=== PATIENT | male | born 1945 | race Caucasian/White ===

== ENCOUNTER 2017-07-29 11:41 | Emergency (ER) | payer MEDICARE ==
[2017-07-29 11:46] VITALS: BP 143/75; PULSE 79; RESP 18; TEMP 98
[2017-07-29] MEDS ORDERED: DIPH,PERTUS(ACELL)TETVAC-LF 0.5 ML VIAL IM ONE (12:10)
--- NOTE | 2017-07-29 12:43 | XR ---
EXAMINATION TYPE: XR nasal bone DATE OF EXAM: 07/29/2017 COMPARISON: NONE HISTORY: Fall injury with nasal laceration and pain. TECHNIQUE: Complete nasal bone series with both lateral and frontal projections. FINDINGS: No acute displaced nasal fracture is seen. No suspicious soft tissue swelling is noted. IMPRESSION: As above
--- NOTE | 2017-07-29 13:27 | ED ---
General Adult HPI - General Chief complaint: Fall Stated complaint: Fall Time Seen by Provider: 07/29/17 11:45 Source: patient, family, RN notes reviewed Mode of arrival: ambulatory Limitations: no limitations - History of Present Illness Initial comments: This is a 72-year-old male who tripped while in his garage and has a avulsion on the right side of his nose as well as on his upper lip. Patient states the only place his pain is at this nasal bone. Patient denies any headache patient denies being on any blood thinners. Patient denies any neck pain. Patient denies any extremity pain patient denies any chest or back pain. Patient's has no obvious laceration. - Related Data Home Medications Medication Instructions Recorded Confirmed Atorvastatin [Lipitor] 20 mg PO DAILY 09/12/15 09/20/15 Cholecalciferol [Vitamin D3] 1,000 unit PO DAILY 09/12/15 09/20/15 Finasteride [Proscar] 5 mg PO DAILY 09/12/15 09/20/15 Meloxicam [Mobic] 7.5 mg PO BID 09/12/15 09/20/15 Multivitamins, Thera [Multivitamin] 1 tab PO DAILY 09/12/15 09/20/15 Nebivolol [Bystolic] 5 mg PO DAILY 09/12/15 09/20/15 Nortriptyline HCl 75 mg PO DAILY 09/12/15 09/20/15 Potassium Chloride [Klor-Con] 20 meq PO DIRECTED 09/12/15 09/20/15 Aspirin [Adult Low Dose Aspirin EC] 81 mg PO DAILY 09/20/15 09/20/15 Cera Ve 09/20/15 09/20/15 Furosemide [Lasix] 40 mg PO DIRECTED 09/20/15 09/20/15 Vitamin B Complex 1 each PO DAILY 09/20/15 09/20/15 Previous Rx's Medication Instructions Recorded HYDROcodone/APAP 10-325MG [[place] 1 tab PO Q8HR PRN #90 tab 09/20/15 10-325] Allergies Allergy/AdvReac Type Severity Reaction Status Date / Time No Known Allergies Allergy Verified 07/29/17 11:47 Review of Systems ROS Statement: Those systems with pertinent positive or pertinent negative responses have been documented in the HPI. ROS Other: All systems not noted in ROS Statement are negative. Past Medical History Past Medical History: Hyperlipidemia, Hypertension, Prostate Disorder Additional Past Medical History / Comment(s): pain lower back and martin legs, elevated PSA parkensons disease History of Any Multi-Drug Resistant Organisms: None Reported Past Surgical History: Back Surgery, Hernia Repair Additional Past Surgical History / Comment(s): Other back surgeries after 1999 for spinal stenosis and excess scar tissue. Past Anesthesia/Blood Transfusion Reactions: Motion Sickness, Postoperative Nausea & Vomiting (PONV) Past Psychological History: Anxiety Smoking Status: Former smoker Past Alcohol Use History: Rare Past Drug Use History: None Reported - Past Family History Brother(s) Family Medical History: Cancer Additional Family Medical History / Comment(s): breast General Exam - General Exam Comments Initial Comments: GENERAL: Patient is well-developed and well-nourished. Patient is nontoxic and well- hydrated and is in mild distress. ENT: Neck is soft and supple. No significant lymphadenopathy is noted. Oropharynx is clear. Moist mucous membranes. Neck has full range of motion without eliciting any pain. EYES: The sclera were anicteric and conjunctiva were pink and moist. Extraocular movements were intact and pupils were equal round and reactive to light. Eyelids were unremarkable. PULMONARY: Unlabored respirations. Good breath sounds bilaterally. No audible rales rhonchi or wheezing was noted. CARDIOVASCULAR: There is a regular rate and rhythm without any murmurs gallops or rubs. ABDOMEN: Soft and nontender with normal bowel sounds. SKIN: There is an avulsion approximately quarter centimeter in diameter on the right side of his nose as well as an avulsion of skin on the upper right side of his lip measuring about a half a centimeter by quarter centimeter NEUROLOGIC: Patient is alert and oriented x3. Cranial nerves II through XII are grossly intact. Motor and sensory are also intact. Normal speech, volume and content. Symmetrical smile. MUSCULOSKELETAL: Normal extremities with adequate strength and full range of motion. No lower extremity swelling or edema. No calf tenderness. LYMPHATICS: No significant lymphadenopathy is noted PSYCHIATRIC: Normal psychiatric evaluation. Limitations: no limitations Course Vital Signs 07/29/17 11:43 Temperature 98.0 F Pulse Rate 79 Respiratory 18 Rate Blood Pressure 143/75 O2 Sat by Pulse 97 Oximetry Medical Decision Making - Medical Decision Making Patient received a tetanus shot Small thread of skin that was keeping these avulsed piece on his lip was removed by myself. Disposition Clinical Impression: Skin avulsion Disposition: HOME SELF-CARE Instructions: Fall Prevention for Older Adults (ED), Skin Avulsion (ED) Is patient prescribed a controlled substance at d/c from ED?: No Referrals: Linda Thomas MD [Primary Care Provider] - 1-2 days Time of Disposition: 13:24
== END 2017-07-29 13:34 | disposition home or self-care (01) ==
LOC: EC 11:41
DX: S01.20XA Unspecified open wound of nose, initial encounter (principal); S01.501A Unspecified open wound of lip, initial encounter; F41.9 Anxiety disorder, unspecified; E78.5 Hyperlipidemia, unspecified; I10 Essential (primary) hypertension; Z23 Encounter for immunization; Z79.82 Long term (current) use of aspirin; Z79.899 Other long term (current) drug therapy; Z87.891 Personal history of nicotine dependence; W01.0XXA Fall on same level from slipping, tripping and stumbling without subsequent striking against object, initial encounter; Y92.59 Other trade areas as the place of occurrence of the external cause
CPT/HCPCS: 70160; 90471; 90715; 99283

== ENCOUNTER → 2017-09-24 | Outpatient (CLI) | payer MEDICARE ==
[~2017-09-24] MED LIST: REGADENOSON 0.4 MG/5 ML SYRINGE IV ONE
--- NOTE | 2017-09-24 15:38 | NM ---
EXAMINATION TYPE: NM stress lexiscan cardiolite DATE OF EXAM: 09/24/2017 COMPARISON: NONE HISTORY: Abnormal EKG TECHNIQUE: After the intravenous administration of 10.7 mCi Tc 99m Sestamibi - Cardiolite resting SP ECT images acquired 45 minutes post injection. The patient received 0.4mg Lexiscan, 25.9 mCi Tc 99m Sestamibi - Stress images obtained [address] injection FINDINGS: There is some thinning of the inferior lateral wall on the stress images which is more norm al appearance on the resting images. This is also identified on the polar maps. There is loss at the cardiac apex of signal on both resting and stress images. Polar maps suggest a fixed defect at the ca rdiac apex. Gated wall motion is reviewed. There is some hypokinesia of the cardiac apex. Some dyskin esia of the inferior wall near the cardiac base is present. Some distal anterior wall dyskinesia is p resent. Ejection fraction of 60% is normal. IMPRESSION: 1. Stress-induced ischemic change along the inferior lateral wall. 2. Normal ejection fraction of 60%. 3. Dyskinesia of the inferior wall near the cardiac base and distal anterior wall.
--- NOTE | 2017-09-25 08:58 | EST ---
EXERCISE STRESS AGE: 72 SEX: M HT: 65" WT: 205 PROTOCOL: Lexiscan. STAGE: DURATION OF EXERCISE: HEART RATE REST: 65 BLOOD PRESSURE REST: 149/86 MAXIMUM HEART RATE ACHIEVED: 80 MAXIMUM BLOOD PRESSURE: 149/86 85% MPHR: 124 100% MPHR: 146 METS: INDICATIONS: Chest pain. CLINICAL INFORMATION: Syncope. STRESS DATA: Pretesting physical examination showed a heart rate of 65. Pressure is 149/86 mmHg. Baseline EKG showed sinus mechanism. The patient was given 0.4 mg of Lexiscan over 15 seconds per protocol. The max heart rate was 80 beats per minute and maximum pressure was 148/72 mmHg. Clinically, the patient did not have any symptoms of chest pain or discomfort and the EKG did not show any significant ST or T-wave abnormalities concerning for ischemia. CONCLUSION: 1. Nondiagnostic electrocardiogram stress testing in response to Lexiscan. 2. Please follow up on the Cardiolite portion on separate report from the radiology department. MMODL / IJN: [id number] /
== END | disposition home or self-care (01) ==
LOC: RADNMMAIN 07:38
PROVIDERS: ATTEND Internal Medicine
DX: I25.89 Other forms of chronic ischemic heart disease (principal); G24.9 Dystonia, unspecified
CPT/HCPCS: 93017; 78452; A9500; J2785

== ENCOUNTER → 2017-10-14 | Outpatient (CLI) | payer MEDICARE ==
[2017-10-14 11:16] LABS: HCT 44.5 % (39.0-53.0); HGB 13.7 gm/dL (13.0-17.5); MCH 28.7 pg (25.0-35.0); MCHC 30.8 g/dL (31.0-37.0); MCV 93.1 fL (80.0-100.0); Mean Platelet Volume 6.5; Platelet Count 212 k/uL (150-450); RBC 4.78 m/uL (4.30-5.90); RDW 12.2 % (11.5-15.5); WBC 6.8 k/uL (3.8-10.6)
[2017-10-14 11:37] LABS: Anion Gap 4 mmol/L; Blood Urea Nitrogen 21 mg/dL (9-20); Carbon Dioxide 31 mmol/L (22-30); Chloride 105 mmol/L (98-107); Potassium 4.8 mmol/L (3.5-5.1); Sodium 140 mmol/L (137-145)
== END | disposition home or self-care (01) ==
LOC: LABPAT 10:31
PROVIDERS: ATTEND Internal Medicine Interventional Cardiology
DX: Z01.812 Encounter for preprocedural laboratory examination (principal); I10 Essential (primary) hypertension; R06.02 Shortness of breath; R94.39 Abnormal result of other cardiovascular function study
CPT/HCPCS: 36415; 80051; 82565; 84520; 85027

== ENCOUNTER 2017-10-29 06:21 | Day surgery (SDC) | payer MEDICARE ==
[2017-10-24 10:11] VITALS: BMI 34.1
[~2017-10-29 06:21] MED LIST changes: +ALPRAZolam 0.25 MG TAB PO PRN; +ALPRAZolam 0.5 MG TAB PO PRN; +ASPIRIN 325 MG TAB PO STA; +NITROGLYCERIN SL TABS 0.4 MG TAB SUBLINGUAL PRN; -REGADENOSON 0.4 MG/5 ML SYRINGE IV ONE; +SODIUM CHLORIDE 0.9% 1,000 ML in EMPTY BAG 1 BAG IV ONE
[2017-10-29 07:22] VITALS: RESP 20
[2017-10-29] MEDS ORDERED: IV FLUID CONTINUATION 950 ML IV ONE (09:00)
[2017-10-29] MEDS ORDERED: MIDAZOLAM 2 MG/2 ML VIAL IVP ONE (09:08)
[2017-10-29] MEDS ORDERED: LIDOCAINE 1% (PF) 10MG/ML VIAL SQ ONE (09:09)
[2017-10-29] MEDS: VERAPAMIL SYRINGE (5 MG/10 ML) INTRAARTER ONE ×2 (09:11→09:19)
[2017-10-29] MEDS ORDERED: HEPARIN SODIUM 1,000 UN/ML (10ML VL) IV ONE (09:13)
[2017-10-29] MEDS ORDERED: IOPAMIDOL-370 125ML BTL INJ ONE (09:21)
[2017-10-29] MEDS ORDERED: RX INFO: IV CONTRAST WAS GIVEN 1 EACH MISC MISCELLANE PRN (09:36)
[2017-10-29] MEDS ORDERED: SODIUM CHLORIDE 0.9% 1,000 ML IV SCH (09:45)
--- NOTE | 2017-10-29 09:54 | CC ---
CARDIAC CATHETERIZATION REPORT DATE OF SERVICE: 10/29/2017 PERFORMING PHYSICIAN: John Blandon MD, Manager Line. PROCEDURE PERFORMED: Selective right and left coronary angiogram. INDICATION: This is a pleasant 72-year-old gentleman who was experiencing shortness of breath with exertion and underwent myocardial perfusion imaging stress test and that revealed ischemia. Because of that, heart catheterization was recommended. APPROACH: Right radial artery. COMPLICATION: None. LEVEL OF SEDATION: Moderate with sedation length of 15 minutes. PROCEDURE DESCRIPTION: After obtaining an informed consent, the patient was brought to the cardiac laborer pipeline. The right radial artery was cannulated using micropuncture technique, the micropuncture wire passed easily then I placed a 5-Colombian sheath in the right radial artery. After that, I did selective right and left coronary angiogram using JR4 and JL3.5 catheters. Before that, I gave the patient 2 mg of verapamil IA and 9,000 units of heparin IV. The procedure was completed without any complication. SELECTIVE CORONARY ANGIOGRAM: 1. The RCA is a small to medium caliber vessel and it is a nondominant vessel and is angiographically normal. 2. The left main is angiographically normal. It bifurcates into left circumflex and left anterior descending artery. 3. The left circumflex is a large caliber vessel. It is a dominant vessel. The proximal circumflex is normal and gives rise into a medium-size OM branch which seems to be angiographically normal. The mid left circumflex is normal and gives rise into a second small OM branch which seems to be angiographically normal. The left circumflex distally gives rise into another third OM branch which seems to be angiographically normal before bifurcates into PDA and PLV branches, both are angiographically normal. 4. The LAD: The proximal LAD is angiographically normal and gives rise into first diagonal branch which bifurcates into 2 subbranches both are angiographically normal. The mid and distal LAD are angiographically normal. CONCLUSION: 1. Normal coronary angiogram. 2. Post procedure management is medical treatment. MMODL / IJN: [id number] /
--- NOTE | 2017-10-29 10:00 | LTR ---
DATE OF SERVICE: October 29, 2017 RE: Cash Tanner Dear Dr. Thomas; Mr. Cash Tanner underwent a heart catheterization and that revealed normal coronaries. I want to thank you for allowing me to participate in his care and please do not hesitate to call if you have any question or concern. Sincerely, MD PETE Jamil / ALONA: [phone] /
[2017-10-29 10:16] VITALS: PULSE 60; TEMP 98
[2017-10-29 12:35] VITALS: BP 160/78
== END 2017-10-29 15:35 | disposition home or self-care (01) ==
LOC: CATHCVL 06:21 → 3OBS 09:22 → CATHCVL 15:35
PROVIDERS: ATTEND Internal Medicine Interventional Cardiology
DX: R94.39 Abnormal result of other cardiovascular function study (principal); R06.02 Shortness of breath; I10 Essential (primary) hypertension; G20 Parkinson's disease; E78.00 Pure hypercholesterolemia, unspecified; Z87.891 Personal history of nicotine dependence; Z79.82 Long term (current) use of aspirin; Z79.899 Other long term (current) drug therapy
CPT/HCPCS: 93454; C1894; J2250; J1644; J2001; Q9967

== ENCOUNTER 2019-01-28 06:52 | Day surgery (SDC) | payer MEDICARE ==
[2019-01-27 09:09] VITALS: BMI 31.0
[~2019-01-28 06:52] MED LIST changes: -ALPRAZolam 0.25 MG TAB PO PRN; -ALPRAZolam 0.5 MG TAB PO PRN; -ASPIRIN 325 MG TAB PO STA; +DEXAMETHASONE SOD PHOSPHATE 10 MG/ML 1 ML VIAL IV ONE; +HYDROmorphone 0.5 MG/0.5 ML SYRINGE IVP PRN; +LACTATED RINGERS 1,000 ML IV SCH; +LIDOCAINE 1% 20 ML VIAL (10MG/ML) FOR IV START INTRADERMA PRN; +MIDAZOLAM 2 MG/2 ML VIAL IV PRN; +MOXIFLOXACIN HCL 0.5% DROPS 3 ML BTL OP ONE; -NITROGLYCERIN SL TABS 0.4 MG TAB SUBLINGUAL PRN; +ONDANSETRON 4 MG/2 ML VIAL IVP ONE; +SCOPOLAMINE 1.5MG/72HR PATCH TRANSDERM ONE; -SODIUM CHLORIDE 0.9% 1,000 ML in EMPTY BAG 1 BAG IV ONE; +TETRACAINE 0.5% OPHTH (PF) DROPS 4 ML BTL OP SCH; +TIMOLOL 0.5% OPHTH DROPS 5 ML BTL OP ONE
[2019-01-28] MEDS: PHENYLEPHRINE 2.5% OPHTH DRP 2ML OP SCH ×3 (07:20→07:34)
[2019-01-28] MEDS: CYCLOPENTOLATE 1% OPHTH SOLN 2 ML BTL OP SCH ×3 (07:24→07:38)
[2019-01-28 07:31] VITALS: TEMP 97.7
[2019-01-28] MEDS ORDERED: fentaNYL (PF) 50 MCG/ML 2 ML AMP ONE (08:11)
[2019-01-28] MEDS ORDERED: MIDAZOLAM 2 MG/2 ML VIAL ONE (08:11)
[2019-01-28] MEDS ORDERED: HYALURONATE SODIUM INTRAOCULAR 1 EACH SYRINGE (12MG/ML) INTRAOCULA ONE (08:16)
[2019-01-28] MEDS ORDERED: LIDOCAINE 1% (PF) 10MG/ML VIAL SQ ONE (08:17)
[2019-01-28] MEDS ORDERED: BALANCED SALT IRRIG SOLN COMB2 15 ML IRRIG.SOLN INTRAOCULA ONE (08:17)
[2019-01-28] MEDS ORDERED: EPINEPHrine (PF) 0.3 ML in BALANCED SALT IRRIG SOLN COMB2 500 ML IRRIGATION ONE (08:27)
--- NOTE | 2019-01-28 08:44 | P.OP ---
Date of Procedure: 01/28/19 Preoperative Diagnosis: NS & CS Postoperative Diagnosis: same Procedure(s) Performed: PIOL, OD Implants: PCB00 23.00 Anesthesia: MAC Surgeon: Luiz Doherty Estimated Blood Loss (ml): 0 Pathology: none sent Condition: stable Disposition: observation Indications for Procedure: blurry vision Operative Findings: no complications
[2019-01-28 08:48] VITALS: RESP 16
[2019-01-28 09:20] VITALS: BP 115/74; PULSE 57
--- NOTE | 2019-01-28 20:31 | OP ---
OPERATIVE REPORT DATE OF SURGERY: 01/28/2019. PROCEDURE: Phacoemulsification of cataract and intraocular lens implant of the right eye. PREOPERATIVE DIAGNOSIS: Nuclear sclerosis, right eye. POSTOPERATIVE DIAGNOSIS: Nuclear sclerosis, right eye. ESTIMATED BLOOD LOSS: Zero. SPECIMEN TAKEN: None. NARRATIVE: After obtaining the appropriate consent, the patient was brought to the operating room, where the patient was placed under cardiac monitoring and prepped and draped in the usual sterile manner. At the 11 o'clock position a 15-degree super sharp blade was used to create a paracentesis followed by instillation of 1% Xylocaine MPF 50:50 mix with BSS into the anterior chamber. This was followed by Amvisc to stabilize the anterior chamber. At the 9 o'clock position a self-sealing corneal flap incision was created using 2.8 mm shahriar keratome. A cystotome was used to initiate a continuous tear capsulorrhexis which was completed with the Utrata forceps. A Binkhorst cannula was used to hydrodissect the lens nucleus followed by hydrodelineation. Phacoemulsification of the lens was performed utilizing phaco chop in 14.29 seconds at 13% power. The remaining cortical material was removed using the irrigation aspiration mode followed by additional 1% Xylocaine MPF into the anterior chamber followed by viscoelastic to stabilize the capsular bag. An MAHSA PCB00 23.0 diopter posterior chamber lens was placed into the capsular bag without difficulty. The remaining viscoelastic material was removed from the anterior chamber with the irrigation/aspiration. Balanced salt solution was used to normalize the intraocular pressure. The incision was checked for watertight integrity. The patient then received two drops of 0.5% timolol followed by two drops Vigamox, was lightly patched and shielded in the usual manner. There were no complications from the procedure. The patient tolerated the procedure well and was returned to Recovery in good condition. MMODL / IJN: [id number] /
== END 2019-01-28 09:41 | disposition home or self-care (01) ==
LOC: OR 06:52
PROVIDERS: ATTEND Ophthalmology
DX: H25.11 Age-related nuclear cataract, right eye (principal); H25.812 Combined forms of age-related cataract, left eye; H04.123 Dry eye syndrome of bilateral lacrimal glands; H52.03 Hypermetropia, bilateral; H52.4 Presbyopia; H02.833 Dermatochalasis of right eye, unspecified eyelid; H02.836 Dermatochalasis of left eye, unspecified eyelid; H00.026 Hordeolum internum left eye, unspecified eyelid; H00.023 Hordeolum internum right eye, unspecified eyelid; I10 Essential (primary) hypertension; G20 Parkinson's disease; N40.0 Benign prostatic hyperplasia without lower urinary tract symptoms; K57.92 Diverticulitis of intestine, part unspecified, without perforation or abscess without bleeding; Z98.890 Other specified postprocedural states; Z79.899 Other long term (current) drug therapy; Z79.82 Long term (current) use of aspirin; Z82.49 Family history of ischemic heart disease and other diseases of the circulatory system; Z82.3 Family history of stroke; Z87.891 Personal history of nicotine dependence; Z97.3 Presence of spectacles and contact lenses; E78.5 Hyperlipidemia, unspecified; M54.9 Dorsalgia, unspecified; Z97.2 Presence of dental prosthetic device (complete) (partial)
CPT/HCPCS: 66984; C1780; J2250; J0171; J3010; J2001

== ENCOUNTER 2019-04-15 07:37 | Day surgery (SDC) | payer MEDICARE ==
[2019-04-13 15:00] VITALS: BMI 30.9
[~2019-04-15 07:37] MED LIST changes: -DEXAMETHASONE SOD PHOSPHATE 10 MG/ML 1 ML VIAL IV ONE; -HYDROmorphone 0.5 MG/0.5 ML SYRINGE IVP PRN; -MIDAZOLAM 2 MG/2 ML VIAL IV PRN; -ONDANSETRON 4 MG/2 ML VIAL IVP ONE; -SCOPOLAMINE 1.5MG/72HR PATCH TRANSDERM ONE; +TETRACAINE 0.5% OPHTH (PF) DROPS 4 ML BTL OP ONE; -TETRACAINE 0.5% OPHTH (PF) DROPS 4 ML BTL OP SCH
[2019-04-15] MEDS: CYCLOPENTOLATE 1% OPHTH SOLN 2 ML BTL OP ONE ×3 (08:08→08:24)
[2019-04-15 08:11] VITALS: TEMP 97.6
[2019-04-15] MEDS: PHENYLEPHRINE 2.5% OPHTH DRP 2ML OP NR ×3 (08:12→08:27)
[2019-04-15] MEDS ORDERED: MIDAZOLAM 2 MG/2 ML VIAL ONE (08:56)
[2019-04-15] MEDS ORDERED: fentaNYL (PF) 50 MCG/ML 2 ML AMP ONE (08:56)
[2019-04-15] MEDS ORDERED: HYALURONATE SODIUM INTRAOCULAR 1 EACH SYRINGE (12MG/ML) INTRAOCULA ONE (09:09)
[2019-04-15] MEDS ORDERED: BALANCED SALT IRRIG SOLN COMB2 15 ML IRRIG.SOLN IRRIGATION ONE (09:09)
[2019-04-15] MEDS ORDERED: LIDOCAINE 1% (PF) 10MG/ML VIAL INTRAARTIC ONE (09:09)
[2019-04-15] MEDS ORDERED: TETRACAINE 0.5% OPHTH (PF) DROPS 4 ML BTL LEFT EYE ONE (09:10)
[2019-04-15] MEDS ORDERED: EPINEPHrine 1 MG/ML 1 ML AMP IRRIGATION ONE (09:10)
[2019-04-15] MEDS ORDERED: EPINEPHrine (PF) 0.3 ML in BALANCED SALT IRRIG SOLN COMB2 500 ML IRRIGATION ONE (09:12)
--- NOTE | 2019-04-15 09:24 | P.OP ---
Date of Procedure: 04/15/19 Preoperative Diagnosis: NS & CS Postoperative Diagnosis: same Procedure(s) Performed: PIOL, OS Implants: PCB00 22.50 Anesthesia: MAC Surgeon: Luiz Doherty Pathology: none sent Condition: stable Disposition: same day Indications for Procedure: blurry vision Operative Findings: no complications
[2019-04-15 09:41] VITALS: BP 118/78; PULSE 78; RESP 20
--- NOTE | 2019-04-15 23:15 | OP ---
OPERATIVE REPORT DATE OF SURGERY: 04/15/2019. PROCEDURE: Phacoemulsification of cataract and intraocular lens implantation of the left eye. 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 POSTOPERATIVE DIAGNOSIS: Nuclear sclerosis and cortical sclerosis and exposure to Flomax. SURGEON: Dr. Luiz Doherty. ANESTHESIA: Topical. ESTIMATED BLOOD LOSS: None. SPECIMEN TAKEN: None. NARRATIVE: After obtaining the appropriate consent, the patient was brought to the operating room. There he was placed under cardiac monitoring, prepped and draped in the usual sterile manner. He was approached from his left temporal side, and at the 5 o'clock position an MVR blade was used to create a paracentesis port. Through this opening 1% lidocaine MPF with epinephrine 1:1000 MPF and balanced-salt solution in a ratio of 1-2-1 was injected into the anterior chamber. This was followed by stabilization of the anterior chamber with Amvisc. At the 3 o'clock position, a 2.5 mm keratome was used to create a self-sealing corneal flap incision. It was decided at this point because of the lack of proper dilation a 6.25 mm Malyugin Ring was inserted on the pupillary sphincter to ensure tension and control over the iris. A cystotome was then introduced to begin a continuous tear capsulorrhexis, which was completed using the Utrata forceps. Hydrodissection and hydrodelineation of the lens was accomplished with balanced-salt solution. Phacoemulsification of the lens utilizing Phaco Chop was accomplished in 12.99 seconds at 13% power. Additional xylocaine/epinephrine medication mix was instilled into the patient's eye. This was followed by removal of the remaining cortex under irrigation and aspiration along with careful polishing of the posterior capsule in the capsule vacuum mode. Additional Amvisc was then used to stabilize the capsular bag and a Deuce and Deuce PCB00 22.5 diopter posterior chamber intraocular lens was injected into the capsular bag without difficulty. The remaining viscoelastic was removed from in and around the intraocular lens as well as the anterior chamber following removal of the Malyugin Ring. The eye was brought to normal intraocular pressure through the paracentesis port and the temporal wound was hydrated slightly with balanced-salt solution. He then received 2 drops of 0.5% timolol as well as 2 drops of moxifloxacin. He was then lightly patched and shielded in the usual manner. There were no complications from the procedure. He tolerated the procedure well and was returned to Outpatient Recovery in good condition. MMNILE / HECTORN: [id number] /
== END 2019-04-15 09:55 | disposition home or self-care (01) ==
LOC: OR 07:37
PROVIDERS: ATTEND Ophthalmology
DX: H25.12 Age-related nuclear cataract, left eye (principal); T75.89XA Other specified effects of external causes, initial encounter; H04.123 Dry eye syndrome of bilateral lacrimal glands; H52.03 Hypermetropia, bilateral; H52.4 Presbyopia; H00.026 Hordeolum internum left eye, unspecified eyelid; H00.023 Hordeolum internum right eye, unspecified eyelid; H02.833 Dermatochalasis of right eye, unspecified eyelid; H02.836 Dermatochalasis of left eye, unspecified eyelid; I10 Essential (primary) hypertension; K57.92 Diverticulitis of intestine, part unspecified, without perforation or abscess without bleeding; G20 Parkinson's disease; N40.0 Benign prostatic hyperplasia without lower urinary tract symptoms; E78.5 Hyperlipidemia, unspecified; M96.1 Postlaminectomy syndrome, not elsewhere classified; F41.9 Anxiety disorder, unspecified; Z48.810 Encounter for surgical aftercare following surgery on the sense organs; Z98.41 Cataract extraction status, right eye; Z97.2 Presence of dental prosthetic device (complete) (partial); Z96.1 Presence of intraocular lens; Z98.890 Other specified postprocedural states; Z79.899 Other long term (current) drug therapy; Z79.82 Long term (current) use of aspirin; Z97.3 Presence of spectacles and contact lenses; Z87.891 Personal history of nicotine dependence; Z82.49 Family history of ischemic heart disease and other diseases of the circulatory system; Z82.3 Family history of stroke; X58.XXXA Exposure to other specified factors, initial encounter
CPT/HCPCS: 66984; C1780; J2250; J0171 ×2; J3010; J2001

== ENCOUNTER → 2022-02-21 | Outpatient (CLI) | payer MEDICARE ==
[2022-02-21 10:41] VITALS: BP 116/59; PULSE 58; RESP 18; TEMP 98.5
--- NOTE | 2022-02-21 15:33 | P.PAINPG ---
PQRS Measure Charge Sheet Comment: HISTORY OF PRESENT ILLNESS: 77 yr old male w at side as a referral from Dr Thomas presents today w severe and chronic LBP x 1 mo secondary to disc bulges, DDD and facet arthropathy without myelopathy for evaluation. Pt states pain level is at 9 /10 in intensity, constant, localized in the lower lumbar spine, burning in character w shooting pain towards the LLE and L toes. Pain is provoked by standing/ walking for periods of 10 min or more per pt and at side. He can not perform daily home exercises due to excessive pain. Pain is alleviated by heat, ice, medications (Motrin, Robaxin), topicals, repositioning and rest. PMH: Hyperlipidemia, Hypertension, BPH, Parkinson's Disease, Anxiety PSH: Lumbar Surgeries, Hernia Repair, BL Eye Surgery (2018, 2019) SH: Former tobacco user, Rare ETOH use, No illicit drug use. FH: Br- Breast CA All: NKDA Meds: See list REVIEW OF ORGAN SYSTEMS: CONSTITUTIONAL: No fevers or chills. No recent weight loss. NEUROLOGICAL: + numbness and tingling along the distal extremities. No seizure disorders or headaches. MUSCULOSKELETAL: + pain PSYCHIATRIC: Denies current depression or suicidal thoughts. Physical Examinations : Constitutional : Cooperative , not in acute distress . Neurologic : Cranial nerve II to XII intact. No focal neurological deficits. Psychiatric : alert & oriented x 3. Matching mood & appropriate affect. Judgment & insight intact. Musculoskeletal : Cervical Spine Motor strength in the deltoid and biceps: Normal right side. Normal Left side Motor strength biceps and the wrist extensors: Normal right side . Normal left side Motor strength in the triceps muscle: Normal right side. Normal left side Deep tendon reflexes: Normal at the biceps. Normal at Brachioradialis. Normal at triceps Vertebral body tenderness to deep palpation over Cervical facet loading test: positive bilaterally Spurling test: positive bilaterally Neck distraction test: positive bilaterally Álvaro sign: positive bilaterally Lumbar spine Motor strength lower extremities ,thigh and legs 5/5 Right side , 5/5 Left side Deep tendon reflexes : Normal Knee Jerk. Normal Ankle Jerk Vertebral body tenderness over L4, L5 Lumbar facet Loading Test: positive Right / positive Left Range of motion of the lumbar spine Flexion 30 degrees, extension 10 degrees Straight Leg Raise test: Left/ Right positive at degree Jayme test: positive right / positive left. Severe tenderness over the Sacroiliac joint on the Right / Left sides Gaenslen test: positive bilaterally Seated flexion test: positive bilaterally. Sacral spine : Severe tenderness over the Sacroiliac joint: right side / left side Range of motion: Flexion of the lumbar spine <60 degrees Range of motion: Extension of the perlita mbar spine <20 degrees Gaenslen's Test positive Cuauhtemoc's Test positive Jayme test: positive right side / left side Thigh Thrust Test Sacral Thrust Test Imaging: MRI without contrast of the lumbar spine from 01/26/22 reviewed Assessment/ Plan : Lumbar DDD Recommendation of SANDRA L4-L5 #1. May need a series of injections, up to 3 within a 6 mo period, for optimal pain relief. Risks, benefits of procedure discussed and patient verbalized understanding. Admits to aspirin or anti- coagulant use or medical history of diabetes. Protocol for discontinuation/ continuation of medications lit procedure discussed. All questions answered. I have spent greater than 30 minutes on patient care today. Dr Walker was available by phone for the evaluation of this patient. The time was used to revi ew the medical records including relevant urine studies and Prescription history (MAPs), review of the available imaging, evaluation and examination of the patient, coordination of care with the medical staff and if applicable referring physicians, as well as creation of the medical record PQRS Narrative: Smoking Status Former smoker Narcotic Agreement Date Signed 09/20/15 Hx Alcohol Use (MH) Yes: a couple beers weekly Home Medications: Ambulatory Orders Atorvastatin [Lipitor] 20 mg PO DAILY 09/12/15 Finasteride [Proscar] 5 mg PO DAILY 09/12/15 Nortriptyline HCl 75 mg PO HS 09/12/15 Potassium Chloride [Klor-Con Packets] 20 meq PO DAILY 09/12/15 Aspirin [Adult Low Dose Aspirin EC] 81 mg PO DAILY 09/20/15 Escitalopram [Lexapro] 10 mg PO DAILY 10/24/17 Furosemide [Lasix] 20 mg PO DAILY 10/24/17 Losartan [Cozaar] 25 mg PO DAILY 10/24/17 Docusate [Colace] 100 mg PO DAILY 01/27/19 Metoprolol Succinate [Toprol XL] 25 mg PO DAILY 01/27/19 Carbidopa-Levodopa 25-250 mg [Sinemet 25-250] 1 each PO TID 04/13/19 Controlled Substance Measures - Controlled Substance Measures Is patient prescribed a controlled substance at discharge?: No
== END ==
LOC: PNWHC3 09:54
PROVIDERS: ATTEND Specialist
DX: M51.36 Other intervertebral disc degeneration, lumbar region (principal); Z79.82 Long term (current) use of aspirin; Z87.891 Personal history of nicotine dependence
CPT/HCPCS: 99211

== ENCOUNTER → 2022-05-25 | Outpatient (CLI) | payer MEDICARE ==
--- NOTE | 2022-05-25 14:07 | XR ---
EXAMINATION TYPE: XR chest 2V DATE OF EXAM: 05/25/2022 2:00 PM COMPARISON: Chest radiographs from 11/14/2009 TECHNIQUE: XR chest 2V Frontal and lateral views of the chest. CLINICAL INDICATION:Male, 77 years old with history of M48.602, Z01.812; FINDINGS: Lungs/Pleura: There is no evidence of pleural effusion, focal consolidation, or pneumothorax. Pulmonary vascularity: Unremarkable. Heart/mediastinum: Cardiomediastinal silhouette is unremarkable. Musculoskeletal: No acute osseous pathology. Scoliotic curvature of the thoracic spine. Stable develo pmental left fifth and sixth rib deformities. IMPRESSION: No acute cardiopulmonary disease/process. No significant change from prior examination.
[2022-05-25 15:09] LABS: INR 0.9 (<1.2); Partial Thromboplastin Time 23.9 sec (22.0-30.0)
[2022-05-25 20:14] LABS: Basophils # (A) 0.03 X 10*3/uL (0.00-0.10); Basophils % (A) 0.4 %; Eosinophils # (A) 0.08 X 10*3/uL (0.04-0.35); HCT 44.8 % (39.6-50.0); HGB 13.9 g/dL (13.0-17.0); Immature Grans, Automated 0.3 %; Lymphocytes # (A) 1.24 X 10*3/uL (0.90-5.00); Lymphocytes % (A) 15.6 %; MCH 29.9 pg (27.0-32.0); MCV 96.3 fL (80.0-97.0); Mean Platelet Volume 9.9 fL (9.5-12.2); Monocytes # (A) 0.57 X 10*3/uL (0.20-1.00); Monocytes % (A) 7.2 %; NRBC Per 100 WBC 0 /100 WBCS (0.0-0.0); Neutrophils % (A) 75.5 %; Platelet Count 248 X 10*3/uL (140-440); RBC 4.65 X 10*6/uL (4.40-5.60); RDW 12.7 % (11.5-14.5); WBC 7.94 X 10*3/uL (4.50-10.00)
[2022-05-25 20:24] LABS: African American GFR (CKD) 93.8 (60.0-200.0); Albumin 4.1 g/dL (3.8-4.9); Albumin/Globulin Ratio 1.71 (1.60-3.17); Anion Gap 11.9 mmol/L (10.00-18.00); BUN/Creat Ratio 23.56 Ratio (12.00-20.00); Blood Urea Nitrogen 21.2 mg/dL (9.0-27.0); Calcium 9.7 mg/dL (8.7-10.3); Carbon Dioxide 27.1 mmol/L (20.0-27.5); Globulin 2.4 g/dL (1.6-3.3); Non-African American GFR(CKD) 80.9 (60.0-200.0); Potassium 4.7 mmol/L (3.5-5.5); Total Bilirubin 0.8 mg/dL (0.30-1.20); Total Protein 6.5 g/dL (6.2-8.2)
[2022-05-26 04:50] LABS: Appearance,Urine Clear (Clear); Bilirubin,Urine Negative (Negative); Blood,Urine Negative (Negative); Color,Urine Dark Yellow (Yellow); Ketones,Urine Trace mg/dL (Negative); Nitrite,Urine Negative (Negative); PH, Urine 6.5 (5.0-8.0); Specific Gravity,Urine 1.024 (1.001-1.030)
[2022-05-26 04:55] LABS: Bacteria,Urine None Seen /HPF (None Seen)
== END | disposition home or self-care (01) ==
LOC: LABWHC1 12:55
PROVIDERS: ATTEND Neurological Surgery
DX: Z01.812 Encounter for preprocedural laboratory examination (principal); M48.062 Spinal stenosis, lumbar region with neurogenic claudication
CPT/HCPCS: 36415; 71046; 80053; 81001; 83036; 85025; 85610; 85730; 87070; 93005

== ENCOUNTER → 2022-06-13 | Outpatient (CLI) | payer MEDICARE ==
--- NOTE | 2022-06-18 12:31 | CA ---
Transthoracic Echo Report Name: Cash Tanner Age: 77 Gender: M : 1945 Exam Date: 06/13/2022 14:48 Exam Location: [facility] Ht (in): 63 Wt (lb): 170 Ordering Physician: Linda Thomas MD Attending/Referring Phys: Linda Thomas MD Guest Laundry Attendant Enrico Santana [facility] Procedure CPT: Indications: Z01.810 I10 Cardiac Hx: Technical Quality: Fair Contrast 1: Total Dose (mL): Contrast 2: Total Dose (mL): MEASUREMENTS (Male / Female) Normal Values 2D ECHO LV Diastolic Diameter PLAX 4.4 cm 4.2 - 5.9 / 3.9 - 5.3 cm LV Systolic Diameter PLAX 4.0 cm LV Fractional Shortening PLAX 9.2 % IVS Diastolic Thickness 1.0 cm 0.6 - 1.0 / 0.6 - 0.9 cm IVS Systolic Thickness 1.4 cm LVPW Diastolic Thickness 1.3 cm 0.6 - 1.0 / 0.6 - 0.9 cm LVPW Systolic Thickness 1.3 cm LV Relative Wall Thickness 0.5 RV Internal Dim ED PLAX 2.7 cm LVOT Diameter 1.9 cm LA Systolic Diameter LX 2.9 cm 3.0 - 4.0 / 2.7 - 3.8 cm LV Diastolic Volume MOD BP 95.2 cm??? 67 - 155 / 56 - 104 cm??? LV Systolic Volume MOD BP 42.1 cm??? 22 - 58 / 19 - 49 cm??? LV Ejection Fraction MOD BP 55.8 % >= 55 % LV Stroke Volume MOD BP 53.1 cm??? LV Diastolic Volume MOD 4C 91.0 cm??? LV Systolic Volume MOD 4C 52.7 cm??? LV Ejection Fraction MOD 4C 42.0 % LV Stroke Volume MOD 4C 38.2 cm??? LV Diastolic Length 4C 8.1 cm LV Systolic Length 4C 6.7 cm LV Diastolic Volume MOD 2C 97.4 cm??? LV Systolic Volume MOD 2C 32.1 cm??? LV Ejection Fraction MOD 2C 67.1 % LV Stroke Volume MOD 2C 65.4 cm??? LV Diastolic Length 2C 7.9 cm LV Systolic Length 2C 6.4 cm Ascending Aorta Diameter 2.6 cm M-MODE Aortic Root Diameter MM 3.5 cm LA Systolic Diameter MM 4.2 cm LA Ao Ratio MM 1.2 MV E Point Septal Separation 1.5 cm AV Cusp Separation MM 1.5 cm DOPPLER AV Peak Velocity 119.8 cm/s AV Peak Gradient 5.7 mmHg AI Peak Velocity 392.8 cm/s AI Peak Gradient 61.7 mmHg AI Deceleration Piatt 100.8 cm/s??? AI Pressure Half Time 1130.5 ms MV Deceleration Piatt 372.1 cm/s??? Mitral E Point Velocity 85.5 cm/s Mitral A Point Velocity 102.3 cm/s Mitral E to A Ratio 0.8 MV Deceleration Time 229.7 ms MV E' Velocity 5.1 cm/s Mitral E to MV E' Ratio 16.7 TR Peak Velocity 247.5 cm/s TR Peak Gradient 24.5 mmHg Right Ventricular Systolic Press 34.5 mmHg PV Peak Velocity 78.3 cm/s PV Peak Gradient 2.5 mmHg FINDINGS Left Ventricle Left ventricular ejection fraction is estimated at 55-60 %. Mild concentric left ventricular hypertrophy. Left ventricular cavity size normal. Right Ventricle Normal right ventricular size. RVSP- 30 mm Hg Right Atrium Normal right atrial size. Left Atrium Normal left atrial size. Mitral Valve Mitral valve thickened. mild mitral regurgitation.mitral annular calcification. Aortic Valve Trileaflet aortic valve. Diffuse thickening (sclerosis) of the aortic valve cusps without reduced excursion. [id number] aortic regurgitation. Tricuspid Valve Mild tricuspid regurgitation.structurally normal tricuspid valve. Pulmonic Valve Trace pulmonic regurgitation. Pericardium Normal pericardium. No pericardial effusion. Aorta Normal size aortic root and proximal ascending aorta. CONCLUSIONS 1. Normal left ventricle size and systolic function 2. Mild mitral and tricuspid regurgitation 3. Mild to moderate aortic regurgitation. Previewed by: Dr. Maria Cruz MD (Electronically Signed) Final Date: 18 Jun 2022 12:30
== END | disposition home or self-care (01) ==
LOC: RADECHMAIN 14:10
PROVIDERS: ATTEND Internal Medicine
DX: Z01.810 Encounter for preprocedural cardiovascular examination (principal); I08.3 Combined rheumatic disorders of mitral, aortic and tricuspid valves; I10 Essential (primary) hypertension
CPT/HCPCS: 93306

== ENCOUNTER → 2022-10-10 | Outpatient (CLI) | payer MEDICARE ==
--- NOTE | 2022-10-10 14:54 | XR ---
EXAMINATION TYPE: XR lumbar spine with bend/flex DATE OF EXAM: 10/10/2022 COMPARISON: 09/30/2014 HISTORY: Low back pain TECHNIQUE: 7 view lumbar spine FINDINGS: Pedicle screws are present L3-L4 and L5. There are 5 lumbar-type vertebral bodies. Disc spa debbie are present L3-4 and L4-5. Vertebral body alignment is preserved. Spondylosis is present. Some na rrowing of disc height is noted L2-L3. Some posterior disc space narrowing is present L1-2 and diffus luna through L5-S1. Little motion is evident between flexion and extension and neutral positions. IMPRESSION: 1. Little motion with flexion and extension views. 2. Degenerative disc changes discussed above. 3. No subluxation lumbar vertebral bodies with flexion and extension
== END | disposition home or self-care (01) ==
LOC: LABWHC1 10:21
PROVIDERS: ATTEND Physician Assistant Surgical
DX: M47.816 Spondylosis without myelopathy or radiculopathy, lumbar region (principal)
CPT/HCPCS: 72114

== ENCOUNTER 2022-11-30 19:57 | Inpatient (IN) | payer MEDICARE ==
[2022-11-30 20:08] LABS: Glucose,Whole Blood 143 mg/dL (70-110)
--- NOTE | 2022-11-30 20:51 | ED ---
Weakness HPI - General Chief complaint: Weakness Stated complaint: Weakness Time Seen by Provider: 11/30/22 20:02 Source: patient, EMS Mode of arrival: EMS - History of Present Illness Initial comments: This patient is 77-year-old man with history of Parkinson's disease arriving by EMS to have evaluation of generalized weakness. The patient states that he was not able to get up from his chair tonight. He states he was trying to get up but his legs would not support him. He did not note any focal weakness. Both legs were weak. He states he is also feeling cold, having chills tonight. He has not noted definite signs of infection. No congestion, sinus pressure, cough. No sore throat or ear pain. No change in urination or bowel movements noted. No vomiting. MD Complaint: generalized weakness Onset/Timin -: hour(s) Location: generalized Severity scale (1-10): 0 Improves with: none Worsens with: none Associated Symptoms: fever/chills (Chills) - Related Data Home Medications Medication Instructions Recorded Confirmed Atorvastatin [Lipitor] 20 mg PO DAILY 09/12/15 11/30/22 Finasteride [Proscar] 5 mg PO DAILY 09/12/15 11/30/22 Aspirin [Adult Low Dose Aspirin EC] 81 mg PO DAILY 09/20/15 11/30/22 Furosemide [Lasix] 20 mg PO DAILY 10/24/17 11/30/22 Losartan [Cozaar] 25 mg PO DAILY 10/24/17 11/30/22 B Complex-Vit C-Vit E-Zinc [Z-Bec] 1 tab PO DAILY 03/22/22 11/30/22 Cholecalciferol (Vitamin D3) 125 mcg PO DAILY 03/22/22 11/30/22 [Vitamin D3 (125 MCG = 5,000 IU)] DULoxetine HCL 20 mg PO DAILY 03/22/22 11/30/22 LORazepam 0.5 mg PO HS PRN 03/22/22 11/30/22 Propranolol [Inderal] 20 mg PO BID 03/22/22 11/30/22 methocarbamoL [Methocarbamol] 500 mg PO BID 03/22/22 11/30/22 Carbidopa-Levodopa 25-100 mg 2 tab PO Q6H 11/30/22 11/30/22 [Sinemet 25-100] Gabapentin [Neurontin] 300 mg PO DAILY PRN 11/30/22 11/30/22 Potassium Chloride ER [K-Dur 10] 10 meq PO DAILY 11/30/22 11/30/22 Sennosides/Docusate Sodium [Senna 1 tab PO BID PRN 11/30/22 11/30/22 Plus 8.6-50 mg Softgel] Allergies Allergy/AdvReac Type Severity Reaction Status Date / Time No Known Allergies Allergy Verified 11/30/22 22:08 Review of Systems ROS Statement: Those systems with pertinent positive or pertinent negative responses have been documented in the HPI. ROS Other: All systems not noted in ROS Statement are negative. Constitutional: Reports: chills, weakness Eyes: Denies: vision change ENT: Denies: throat pain, congestion Respiratory: Denies: cough, dyspnea Cardiovascular: Denies: chest pain, palpitations, edema, syncope Gastrointestinal: Denies: abdominal pain, nausea, vomiting, diarrhea Genitourinary: Denies: dysuria, frequency, hematuria Musculoskeletal: Denies: back pain Skin: Denies: rash Neurological: Denies: headache, weakness, numbness Past Medical History Past Medical History: Hyperlipidemia, Hypertension, Neurologic Disorder, Prostate Disorder Additional Past Medical History / Comment(s): pain lower back and martin legs, intermittent lower leg swelling, elevated PSA, parkinsons disease, occasional tremors History of Any Multi-Drug Resistant Organisms: None Reported Past Surgical History: Back Surgery, Heart Catheterization, Hernia Repair Additional Past Surgical History / Comment(s): back surgeries x4, for spinal stenosis and excess scar tissue, martin cataract removed Past Anesthesia/Blood Transfusion Reactions: Motion Sickness, Postoperative Nausea & Vomiting (PONV) Past Psychological History: Anxiety Smoking Status: Former smoker Past Alcohol Use History: None Reported Past Drug Use History: None Reported - Past Family History Brother(s) Family Medical History: Cancer Additional Family Medical History / Comment(s): breast General Exam General appearance: alert, in no apparent distress Head exam: Present: atraumatic, normocephalic Eye exam: Present: normal appearance. Absent: scleral icterus, conjunctival injection ENT exam: Present: normal oropharynx Neck exam: Present: normal inspection, full ROM. Absent: meningismus Respiratory exam: Present: normal lung sounds bilaterally. Absent: respiratory distress, wheezes, rales, rhonchi, stridor Cardiovascular Exam: Present: regular rate, normal rhythm, normal heart sounds. Absent: systolic murmur, diastolic murmur, rubs, gallop GI/Abdominal exam: Present: soft. Absent: distended, tenderness, guarding, rebound, rigid, mass Extremities exam: Present: normal inspection, normal capillary refill. Absent: pedal edema, calf tenderness Back exam: Present: normal inspection. Absent: CVA tenderness (R), CVA tenderness (L) Neurological exam: Present: alert, oriented X3, CN II-XII intact. Absent: motor sensory deficit Skin exam: Present: warm, dry, intact, normal color. Absent: rash Course Vital Signs 11/30/22 19:58 Temperature 101.9 F H Pulse Rate 89 Respiratory 22 Rate Blood Pressure 161/79 O2 Sat by Pulse 100 Oximetry EKG Findings - EKG Results: EKG: interpreted by JOSE RAUL, sinus rhythm (Rate 91 bpm), normal axis, normal QRS, normal ST/T, no acute changes Medical Decision Making - Medical Decision Making Patient is 77-year-old man presenting with generalized weakness and found to have fever. There is urinary tract infection, and patient started on antibiotics and IV fluids. Patient be admitted overnight to ensure that there is improvement started. - Lab Data Result diagrams: 11/30/22 20:42 11/30/22 20:42 Lab Results 11/30/22 11/30/22 11/30/22 Range/Units 20:07 20:42 20:42 WBC 14.1 H (3.8-10.6) k/uL RBC 4.61 (4.30-5.90) m/uL Hgb 13.6 (13.0-17.5) gm/dL Hct 42.0 (39.0-53.0) % MCV 91.1 (80.0-100.0) fL MCH 29.6 (25.0-35.0) pg MCHC 32.5 (31.0-37.0) g/dL RDW 13.5 (11.5-15.5) % Plt Count 151 (150-450) k/uL MPV 7.6 Neutrophils % 96 % Lymphocytes % 1 % Monocytes % 1 % Eosinophils % 1 % Basophils % 0 % Neutrophils # 13.6 H (1.3-7.7) k/uL Lymphocytes # 0.2 L (1.0-4.8) k/uL Monocytes # 0.2 (0-1.0) k/uL Eosinophils # 0.1 (0-0.7) k/uL Basophils # 0.0 (0-0.2) k/uL Manual Slide Review Performed RBC Morphology Normal PT 10.8 (10.0-12.5) sec INR 1.0 (<1.2) APTT 23.4 (22.0-30.0) sec Sodium (137-145) mmol/L Potassium (3.5-5.1) mmol/L Chloride (98-107) mmol/L Carbon Dioxide (22-30) mmol/L Anion Gap mmol/L BUN (9-20) mg/dL Creatinine (0.66-1.25) mg/dL Est GFR (CKD-EPI)AfAm (>60 ml/min/1.73 sqM) Est GFR (CKD-EPI)NonAf (>60 ml/min/1.73 sqM) Glucose (74-99) mg/dL POC Glucose (mg/dL) 143 H (70-110) mg/dL POC Glu Rn Iv Therapy ID Gary Robin Lactic Ac Sepsis Rflx Plasma Lactic Acid Darshan (0.7-2.0) mmol/L Calcium (8.4-10.2) mg/dL Magnesium (1.6-2.3) mg/dL Total Bilirubin (0.2-1.3) mg/dL AST (17-59) U/L ALT (4-49) U/L Alkaline Phosphatase (38-126) U/L Troponin I (0.000-0.034) ng/mL NT-Pro-B Natriuret Pep pg/mL Total Protein (6.3-8.2) g/dL Albumin (3.5-5.0) g/dL TSH (0.465-4.680) mIU/L Urine Color Urine Appearance (Clear) Urine pH (5.0-8.0) Ur Specific Mcintire (1.001-1.035) Urine Protein (Negative) Urine Glucose (UA) (Negative) Urine Ketones (Negative) Urine Blood (Negative) Urine Nitrite (Negative) Urine Bilirubin (Negative) Urine Urobilinogen (<2.0) mg/dL Ur Leukocyte Esterase (Negative) Urine RBC (0-5) /hpf Urine WBC (0-5) /hpf Urine WBC Clumps (None) /hpf Ur Squamous Epith Cells (0-4) /hpf Urine Bacteria (None) /hpf Hyaline Casts (0-2) /lpf Urine Mucus (None) /hpf Coronavirus (PCR) (Not Detectd) 11/30/22 11/30/22 11/30/22 Range/Units 20:42 20:42 20:42 WBC (3.8-10.6) k/uL RBC (4.30-5.90) m/uL Hgb (13.0-17.5) gm/dL Hct (39.0-53.0) % MCV (80.0-100.0) fL MCH (25.0-35.0) pg MCHC (31.0-37.0) g/dL RDW (11.5-15.5) % Plt Count (150-450) k/uL MPV Neutrophils % % Lymphocytes % % Monocytes % % Eosinophils % % Basophils % % Neutrophils # (1.3-7.7) k/uL Lymphocytes # (1.0-4.8) k/uL Monocytes # (0-1.0) k/uL Eosinophils # (0-0.7) k/uL Basophils # (0-0.2) k/uL Manual Slide Review RBC Morphology PT (10.0-12.5) sec INR (<1.2) APTT (22.0-30.0) sec Sodium 135 L (137-145) mmol/L Potassium 4.1 (3.5-5.1) mmol/L Chloride 103 (98-107) mmol/L Carbon Dioxide 22 (22-30) mmol/L Anion Gap 10 mmol/L BUN 29 H (9-20) mg/dL Creatinine 1.24 (0.66-1.25) mg/dL Est GFR (CKD-EPI)AfAm 64 (>60 ml/min/1.73 sqM) Est GFR (CKD-EPI)NonAf 55 (>60 ml/min/1.73 sqM) Glucose 142 H (74-99) mg/dL POC Glucose (mg/dL) (70-110) mg/dL POC Glu Rn Iv Therapy ID Lactic Ac Sepsis Rflx Plasma Lactic Acid Darshan 3.2 H* (0.7-2.0) mmol/L Calcium 8.7 (8.4-10.2) mg/dL Magnesium 1.5 L (1.6-2.3) mg/dL Total Bilirubin 1.2 (0.2-1.3) mg/dL AST 32 (17-59) U/L ALT 10 (4-49) U/L Alkaline Phosphatase 102 (38-126) U/L Troponin I (0.000-0.034) ng/mL NT-Pro-B Natriuret Pep 490 pg/mL Total Protein 6.6 (6.3-8.2) g/dL Albumin 3.7 (3.5-5.0) g/dL TSH 1.240 (0.465-4.680) mIU/L Urine Color Yellow Urine Appearance Cloudy (Clear) Urine pH 5.0 (5.0-8.0) Ur Specific Mcintire 1.019 (1.001-1.035) Urine Protein 1+ H (Negative) Urine Glucose (UA) Negative (Negative) Urine Ketones Trace H (Negative) Urine Blood Large H (Negative) Urine Nitrite Negative (Negative) Urine Bilirubin Negative (Negative) Urine Urobilinogen 2.0 (<2.0) mg/dL Ur Leukocyte Esterase Large H (Negative) Urine RBC >182 H (0-5) /hpf Urine WBC >182 H (0-5) /hpf Urine WBC Clumps Moderate H (None) /hpf Ur Squamous Epith Cells <1 (0-4) /hpf Urine Bacteria Rare H (None) /hpf Hyaline Casts 6 H (0-2) /lpf Urine Mucus Occasional H (None) /hpf Coronavirus (PCR) (Not Detectd) 11/30/22 11/30/22 11/30/22 Range/Units 20:42 21:23 23:00 WBC (3.8-10.6) k/uL RBC (4.30-5.90) m/uL Hgb (13.0-17.5) gm/dL Hct (39.0-53.0) % MCV (80.0-100.0) fL MCH (25.0-35.0) pg MCHC (31.0-37.0) g/dL RDW (11.5-15.5) % Plt Count (150-450) k/uL MPV Neutrophils % % Lymphocytes % % Monocytes % % Eosinophils % % Basophils % % Neutrophils # (1.3-7.7) k/uL Lymphocytes # (1.0-4.8) k/uL Monocytes # (0-1.0) k/uL Eosinophils # (0-0.7) k/uL Basophils # (0-0.2) k/uL Manual Slide Review RBC Morphology PT (10.0-12.5) sec INR (<1.2) APTT (22.0-30.0) sec Sodium (137-145) mmol/L Potassium (3.5-5.1) mmol/L Chloride (98-107) mmol/L Carbon Dioxide (22-30) mmol/L Anion Gap mmol/L BUN (9-20) mg/dL Creatinine (0.66-1.25) mg/dL Est GFR (CKD-EPI)AfAm (>60 ml/min/1.73 sqM) Est GFR (CKD-EPI)NonAf (>60 ml/min/1.73 sqM) Glucose (74-99) mg/dL POC Glucose (mg/dL) (70-110) mg/dL POC Glu Rn Iv Therapy ID Lactic Ac Sepsis Rflx Y Plasma Lactic Acid Darshan (0.7-2.0) mmol/L Calcium (8.4-10.2) mg/dL Magnesium (1.6-2.3) mg/dL Total Bilirubin (0.2-1.3) mg/dL AST (17-59) U/L ALT (4-49) U/L Alkaline Phosphatase (38-126) U/L Troponin I 0.014 (0.000-0.034) ng/mL NT-Pro-B Natriuret Pep pg/mL Total Protein (6.3-8.2) g/dL Albumin (3.5-5.0) g/dL TSH (0.465-4.680) mIU/L Urine Color Urine Appearance (Clear) Urine pH (5.0-8.0) Ur Specific Mcintire (1.001-1.035) Urine Protein (Negative) Urine Glucose (UA) (Negative) Urine Ketones (Negative) Urine Blood (Negative) Urine Nitrite (Negative) Urine Bilirubin (Negative) Urine Urobilinogen (<2.0) mg/dL Ur Leukocyte Esterase (Negative) Urine RBC (0-5) /hpf Urine WBC (0-5) /hpf Urine WBC Clumps (None) /hpf Ur Squamous Epith Cells (0-4) /hpf Urine Bacteria (None) /hpf Hyaline Casts (0-2) /lpf Urine Mucus (None) /hpf Coronavirus (PCR) Not Detected (Not Detectd) 11/30/22 Range/Units 23:50 WBC (3.8-10.6) k/uL RBC (4.30-5.90) m/uL Hgb (13.0-17.5) gm/dL Hct (39.0-53.0) % MCV (80.0-100.0) fL MCH (25.0-35.0) pg MCHC (31.0-37.0) g/dL RDW (11.5-15.5) % Plt Count (150-450) k/uL MPV Neutrophils % % Lymphocytes % % Monocytes % % Eosinophils % % Basophils % % Neutrophils # (1.3-7.7) k/uL Lymphocytes # (1.0-4.8) k/uL Monocytes # (0-1.0) k/uL Eosinophils # (0-0.7) k/uL Basophils # (0-0.2) k/uL Manual Slide Review RBC Morphology PT (10.0-12.5) sec INR (<1.2) APTT (22.0-30.0) sec Sodium (137-145) mmol/L Potassium (3.5-5.1) mmol/L Chloride (98-107) mmol/L Carbon Dioxide (22-30) mmol/L Anion Gap mmol/L BUN (9-20) mg/dL Creatinine (0.66-1.25) mg/dL Est GFR (CKD-EPI)AfAm (>60 ml/min/1.73 sqM) Est GFR (CKD-EPI)NonAf (>60 ml/min/1.73 sqM) Glucose (74-99) mg/dL POC Glucose (mg/dL) (70-110) mg/dL POC Glu Rn Iv Therapy ID Lactic Ac Sepsis Rflx Plasma Lactic Acid Darshan 3.5 H* (0.7-2.0) mmol/L Calcium (8.4-10.2) mg/dL Magnesium (1.6-2.3) mg/dL Total Bilirubin (0.2-1.3) mg/dL AST (17-59) U/L ALT (4-49) U/L Alkaline Phosphatase (38-126) U/L Troponin I (0.000-0.034) ng/mL NT-Pro-B Natriuret Pep pg/mL Total Protein (6.3-8.2) g/dL Albumin (3.5-5.0) g/dL TSH (0.465-4.680) mIU/L Urine Color Urine Appearance (Clear) Urine pH (5.0-8.0) Ur Specific Mcintire (1.001-1.035) Urine Protein (Negative) Urine Glucose (UA) (Negative) Urine Ketones (Negative) Urine Blood (Negative) Urine Nitrite (Negative) Urine Bilirubin (Negative) Urine Urobilinogen (<2.0) mg/dL Ur Leukocyte Esterase (Negative) Urine RBC (0-5) /hpf Urine WBC (0-5) /hpf Urine WBC Clumps (None) /hpf Ur Squamous Epith Cells (0-4) /hpf Urine Bacteria (None) /hpf Hyaline Casts (0-2) /lpf Urine Mucus (None) /hpf Coronavirus (PCR) (Not Detectd) Disposition Clinical Impression: Generalized weakness, Urinary tract infection Disposition: ADMITTED IP TO THIS HOSP Condition: Fair Is patient prescribed a controlled substance at d/c from ED?: No Referrals: Linda Thomas MD [Primary Care Provider] - 1-2 days
[2022-11-30 20:58] LABS: Basophils % (A) 0 %; Eosinophils # (A) 0.1 k/uL (0-0.7); Eosinophils % (A) 1 %; HGB 13.6 gm/dL (13.0-17.5); Lymphocytes # (A) 0.2 k/uL (1.0-4.8); Lymphocytes % (A) 1 %; MCH 29.6 pg (25.0-35.0); MCHC 32.5 g/dL (31.0-37.0); MCV 91.1 fL (80.0-100.0); Mean Platelet Volume 7.6; Monocytes # (A) 0.2 k/uL (0-1.0); Monocytes % (A) 1 %; Neutrophils # (A) 13.6 k/uL (1.3-7.7); Neutrophils % (A) 96 %; Platelet Count 151 k/uL (150-450); RBC 4.61 m/uL (4.30-5.90); RDW 13.5 % (11.5-15.5); WBC 14.1 k/uL (3.8-10.6)
[2022-11-30 21:08] LABS: ALT 10 U/L (4-49); AST 32 U/L (17-59); African American GFR (CKD) 64 (>60 ml/min/1.73 sqM); Albumin 3.7 g/dL (3.5-5.0); Alkaline Phosphatase 102 U/L (38-126); Anion Gap 10 mmol/L; Blood Urea Nitrogen 29 mg/dL (9-20); Calcium 8.7 mg/dL (8.4-10.2); Carbon Dioxide 22 mmol/L (22-30); Chloride 103 mmol/L (98-107); Glucose 142 mg/dL (74-99); Magnesium 1.5 mg/dL (1.6-2.3); Non-African American GFR(CKD) 55 (>60 ml/min/1.73 sqM); Potassium 4.1 mmol/L (3.5-5.1); Sodium 135 mmol/L (137-145); Total Bilirubin 1.2 mg/dL (0.2-1.3); Total Protein 6.6 g/dL (6.3-8.2)
[2022-11-30 21:15] LABS: Partial Thromboplastin Time 23.4 sec (22.0-30.0)
[2022-11-30 21:16] LABS: Prothrombin Time 10.8 sec (10.0-12.5)
[2022-11-30 21:17] LABS: NT-Pro-B-Type Natriuretic Pept 490 pg/mL
[2022-11-30 21:20] LABS: RBC Morphology Normal
--- NOTE | 2022-11-30 21:37 | XR ---
EXAMINATION TYPE: XR chest 2V DATE OF EXAM: 11/30/2022 8:57 PM CLINICAL INDICATION:Male, 77 years old with history of Weakness; [facility] COMPARISON: 05/25/2022 TECHNIQUE: XR chest 2V Frontal and lateral views of the chest. FINDINGS: Lines/Tubes: No indwelling lines are seen. EKG leads. Lungs/Pleura: There is no evidence of pleural effusion, focal consolidation, or pneumothorax. Pulmonary vascularity: Mild pulmonary vascular congestion with mild coarsening of the interstitium wh ich could be due to edema. Heart/mediastinum: Heart size upper normal. Mildly tortuous aorta. Mediastinal contours appear unrem arkable. Musculoskeletal: No acute osseous pathology. Mild degenerative changes of the spine and shoulders. Other findings: None IMPRESSION: Borderline heart size. Mild pulmonary vascular congestion with mild coarsening of the interstitium wh ich could be due to edema.
[2022-11-30 23:45] LABS: Appearance,Urine Cloudy (Clear); Bacteria,Urine Rare /hpf; Bilirubin,Urine Negative (Negative); Blood,Urine Large (Negative); Color,Urine Yellow; Glucose,Urine (UA) Negative (Negative); Hyaline Casts,Urine 6 /lpf (0-2); Ketones,Urine Trace (Negative); Leukocyte Esterase,Urine Large (Negative); Mucus,Urine Occasional /hpf; Nitrite,Urine Negative (Negative); Protein,Urine 1+ (Negative); RBC,Urine >182 /hpf (0-5); Specific Gravity,Urine 1.019 (1.001-1.035); Squamous Epithelial Cell,Urine <1 /hpf (0-4); WBC,Urine >182 /hpf (0-5)
[2022-12-01] MEDS ORDERED: NALOXONE 0.4 MG/ML 1 ML VIAL IV PRN (00:51)
[2022-12-01] MEDS ORDERED: MAG HYDROX/AL HYDROX/SIMETH 30 ML CUP PO PRN (00:56)
[2022-12-01] MEDS ORDERED: SENNOSIDES-DOCUSATE SODIUM 1 EACH TAB PO PRN (01:02)
[2022-12-01] MEDS ORDERED: LORazepam 0.5 MG TAB PO PRN (01:02)
[2022-12-01] MEDS: CARBIDOPA-LEVODOPA 25-100 MG 1 EACH TAB PO SCH ×4 (01:57→18:52)
[2022-12-01] MEDS: SODIUM CHLORIDE 0.9% 1,000 ML IV SCH ×2 (01:57→12:08)
[2022-12-01] MEDS: SODIUM CHLORIDE 0.9% 1,000 ML IV ONE ×2 (03:00→05:42)
[2022-12-01] MEDS: ACETAMINOPHEN TAB 325 MG TAB PO PRN ×2 (03:54→17:42)
[2022-12-01] MEDS ORDERED: SODIUM CHLORIDE 0.9% 500 ML 500 ML IV ONE (05:23)
[2022-12-01] MEDS ORDERED: SODIUM CHLORIDE 0.9% 1,000 ML IV ONE (05:41)
[2022-12-01] MEDS: PROPRANOLOL 20 MG TAB PO SCH ×2 (08:11→21:42)
[2022-12-01] MEDS: LOSARTAN 25 MG TAB PO SCH (08:11)
[2022-12-01] MEDS ORDERED: POTASSIUM CHLORIDE ER 10 MEQ TAB.ER.PRT PO SCH ×2 (09:00→21:00)
[2022-12-01] MEDS ORDERED: FAMOTIDINE 20 MG TAB PO SCH (09:00)
[2022-12-01] MEDS ORDERED: FUROSEMIDE 20 MG TAB PO SCH (09:00)
[2022-12-01] MEDS: ASPIRIN 81 MG PO SCH (09:50)
[2022-12-01] MEDS: FINASTERIDE 5 MG TAB PO SCH (09:50)
[2022-12-01] MEDS: CHOLECALCIFEROL 125 MCG (5000 IU) TABLET PO SCH (09:50)
[2022-12-01] MEDS: ATORVASTATIN 20 MG TAB PO SCH (09:50)
[2022-12-01] MEDS: IOPAMIDOL CONTRAST (ORAL USE) VIAL PO PRN ×2 (12:02→13:01)
[2022-12-01] MEDS: DULoxetine HCL 20 MG CAPSULE.DR PO SCH (12:03)
[2022-12-01] MEDS: FOLIC ACID-VIT B COMPLEX-VIT C 1 CAP PO SCH (12:03)
[2022-12-01] MEDS: methocarbamoL 500 MG TAB PO SCH ×2 (12:03→21:42)
--- NOTE | 2022-12-01 13:56 | P.HPIM ---
History of Present Illness H&P Date: 12/01/22 Chief Complaint: weakness/UTI HISTORY OF PRESENT ILLNESS: This is a 77-year-old male with a previous medical history significant for hypertension and hypertensive cardio vascular disease hyperlipidemia, Parkinson disease, mitral regurgitation, ALLERGIC rhinitis, major depressive disorder, chronic low back pain due to spondylosis of the lumbar spine with a spinal stenosis status post multiple laminectomies and fusion the last one was this year that was done by Dr. song followed by a long stay at an extended care facility for physical therapy rehabilitation, after that the patient was discharged back home, patient was in his usual state of health is been doing fine with Physical therapy and occupational therapy, he was sitting in the recliner and all of a sudden he felt extremely weak he could not stand up, and patient was complaining of some pain in the right lower quadrant as well no nausea but no vomiting, positive for loose stool he was not having any fever or chills he felt a bit warm he was brought into the ER at [facility], and he was found to have a urinary tract infection with SIRS, patient was given IV fluid resuscitation, and he was started on IV antibiotic in the form of ceftriaxone after obtaining blood cultures and urine culture apparently the patient while he was on the floor he had hypotensive episode a rapid response team was called and the patient and he was given a bolus of fluid 500 mL and he was placed on 130 mL an hour of normal saline, his chest x-ray showed evidence of pulmonary vascular congestion by the time I came to see the patient patient was on 5 L nasal cannula was decreased down to 2 L nasal cannula his oxygen was around 94%, patient also was showing some sinus congestion, he was started on Lasix 20 mg IV push 24 every 24 hours and his IV fluids were cut down to KVO. I have obtain a cardiology consultation as well as infectious disease consultation will recommended to have a computed tomography scan of the abdomen and pelvis further evaluation to rule out any nephrolithiasis or any abnormalities. REVIEW OF SYSTEMS: Constitutional: No documented fever, no chills, no night sweats. No weight change. No weakness, fatigue or lethargy. No daytime sleepiness. EENT: No headache. No blurred vision or double vision, no loss of vision. No loss of Hearing, no ringing in the ears, no dizziness. No nasal drainage or congestion. No epistaxis. No sore throat. Lungs: No shortness of breath, no cough, no sputum production. No wheezing. Reports dyspnea with activity. Cardiovascular: No chest pain, no lower extremity edema. No palpitations. No paroxysmal nocturnal dyspnea. No orthopnea. No lightheadedness or dizziness. No syncopal episodes. Abdominal: Reports abdominal pain. No nausea, vomiting. No diarrhea. No constipation. No bloody or tarry stools reports loss of appetite. Genitourinary: No dysuria, increased frequency, urgency. No urinary retention. Musculoskeletal: No myalgias. No muscle weakness, no gait dysfunction, no frequent falls. No back pain. No neck pain. Integumentary: No wounds, no lesions. No rash or pruritus. No unusual bruisi ng. No change in hair or nails. Neurologic: No aphasia. No facial droop. No change in mentation. No head injury. No headache. No paralysis. No paresthesia. Psychiatric: No depression. No anxiety. No mood swings. Endocrine: No abnormal blood sugars. No weight change. PAST MEDICAL HISTORY: Hypertension and hypertensive cardio vascular disease. Hyperlipidemia. Parkinson disease. Enlarge prostate. Mitral regurgitation. ALLERGIC rhinitis. Depression. Chronic low back pain status post multiple surgical intervention including laminectomies with fusion 4 last one was this year. PAST SURGICAL HISTORY: Left heart catheterization 10/29/2017 Laminectomy 2000 Laminectomy 1979 Right inguinal hernia repair 1960 Laminectomy with fusion 06/25/2022. SOCIAL HISTORY: Patient used to smoke about a pack every day he smoked for many years and he quit more than 20 years ago, he denies any alcohol ingestion, no drug use or abuse, he lives with his . FAMILY HISTORY: Father at age 76 from CAD post CABG mother at age of 89 from old age and she had hypertension patient has 2 brothers alive and well and 2 sisters alive and well patient has 2 sons and 1 daughter no major medical problems. PHYSICAL EXAMINATION: General: 77-year-old male sitting up in bed and no distress. HEENT: Head is atraumatic, normocephalic, pupils were equal round reactive to light and recommendation, extraocular muscle movement were intact, sclera nonicteric, conjunctivae were pale, mucous membranes of the mouth are somewhat dry. Neck: Supple, no JVP, normal carotid upstroke bilaterally, no lymphadenopathy. Chest: Decreased breath sounds at the bases, few rhonchi, no expiratory wheezes, no chest wall tenderness, no intercostal retractions. Heart: First heart sound is normal, second heart sound is normal there is WILL 2/6 located at the left sternal order Abdomen: Soft, mild tenderness to the right lower quadrant nondistended, positive bowel sounds. Extremities: There is +1 edema no calf tenderness DP +2 bilaterally. Neurologic examination: Patient is awake alert and oriented X 3, cranial nerves II-12 appear grossly intact, muscle power were 4 out of 5 in upper extremities and 3 out of 5 in bilateral lower extremities, deep tendon reflexes were depressed and resting tremors ASSESSMENT AND PLAN: 1. Acute urinary tract infection with SIRS. Blood culture, urine culture, c ontinue ceftriaxone 1 g IV piggyback every 24 hours, infectious disease consultation, computed tomography scan of the abdomen and pelvis with contrast per 2. Hypotensive episode due to sepsis patient did receive a bolus of normal saline 500 mL followed by 130s mL per hour, he appears to be a bit congested therefore he will be discontinued his lactic acid is down to 2.1 3. Lactic acidosis due to hypotension. Back to normal already decrease IV fluid to KVO. 4. Acute diastolic heart failure. Start Lasix 20 mg IV push every 24 hours along with potassium supplement continue losartan 25 mg orally once every day, echocardiogram, cardiology consultation. 5. Hypertension and hypertensive cardio vascular disease. Continue patient on losartan 25 mg once every day, monitor the patient blood pressure very closely. 6. Mixed hyperlipidemia. Continue patient on atorvastatin 20 mg orally once every day. 7. Parkinson disease. Continue patient on Sinemet 25/102 tablet orally 4 times every day. 8. Enlarged prostate. Continue patient on finasteride 5 mg once every day. 9. Depression as well as peripheral neuropathy due to significant spondylosis of the lumbar spine continue patient on duloxetine 20 mg orally once every day. 10. Vitamin D deficiency. Continue patient on vitamin D3 5000 units once every day. 11. DVT prophylaxis. Lovenox 40 mg subcutaneously every 24 hours. 12. GI prophylaxis. Continue patient on Protonix 40 mg orally once every day. 13. Mild protein calorie malnutrition. Start the patient on ensure twice every day. 14. Medical debility due to chronic medical conditions. Physical therapy evaluation. 15. Patient is full code. 16. Admit to inpatient. Estimate length of stay 2 midnights. Past Medical History Past Medical History: Hyperlipidemia, Hypertension, Neurologic Disorder, Prostate Disorder Additional Past Medical History / Comment(s): pain lower back and martin legs, intermittent lower leg swelling, elevated PSA, parkinsons disease, occasional t remors History of Any Multi-Drug Resistant Organisms: None Reported Past Surgical History: Back Surgery, Heart Catheterization, Hernia Repair Additional Past Surgical History / Comment(s): back surgeries x4, for spinal stenosis and excess scar tissue, martin cataract removed Past Anesthesia/Blood Transfusion Reactions: Motion Sickness, Postoperative Nausea & Vomiting (PONV) Past Psychological History: Anxiety Smoking Status: Former smoker Past Alcohol Use History: None Reported Past Drug Use History: None Reported - Past Family History Brother(s) Family Medical History: Cancer Additional Family Medical History / Comment(s): breast Medications and Allergies Home Medications Medication Instructions Recorded Confirmed Type Atorvastatin [Lipitor] 20 mg PO DAILY 09/12/15 11/30/22 History Finasteride [Proscar] 5 mg PO DAILY 09/12/15 11/30/22 History Aspirin [Adult Low Dose Aspirin EC] 81 mg PO DAILY 09/20/15 11/30/22 History Furosemide [Lasix] 20 mg PO DAILY 10/24/17 11/30/22 History Losartan [Cozaar] 25 mg PO DAILY 10/24/17 11/30/22 History B Complex-Vit C-Vit E-Zinc [Z-Bec] 1 tab PO DAILY 03/22/22 11/30/22 History Cholecalciferol (Vitamin D3) 125 mcg PO DAILY 03/22/22 11/30/22 History [Vitamin D3 (125 MCG = 5,000 IU)] DULoxetine HCL 20 mg PO DAILY 03/22/22 11/30/22 History LORazepam 0.5 mg PO HS PRN 03/22/22 11/30/22 History Propranolol [Inderal] 20 mg PO BID 03/22/22 11/30/22 History methocarbamoL [Methocarbamol] 500 mg PO BID 03/22/22 11/30/22 History Carbidopa-Levodopa 25-100 mg 2 tab PO Q6H 11/30/22 11/30/22 History [Sinemet 25-100] Gabapentin [Neurontin] 300 mg PO DAILY PRN 11/30/22 11/30/22 History Potassium Chloride ER [K-Dur 10] 10 meq PO DAILY 11/30/22 11/30/22 History Sennosides/Docusate Sodium [Senna 1 tab PO BID PRN 11/30/22 11/30/22 History Plus 8.6-50 mg Softgel] Allergies Allergy/AdvReac Type Severity Reaction Status Date / Time No Known Allergies Allergy Verified 11/30/22 22:08 Physical Exam Vitals: Vital Signs Temp Pulse Pulse Resp BP BP Pulse Ox 12/01/22 07:31 98.6 F 78 18 110/58 100 12/01/22 06:45 83 17 103/46 97 12/01/22 06:30 75 18 107/53 97 12/01/22 06:00 73 17 99/48 97 12/01/22 05:45 73 16 96/49 97 12/01/22 05:30 75 19 101/50 97 12/01/22 05:00 77 82/46 12/01/22 04:30 94/49 12/01/22 04:00 79 18 103/50 97 12/01/22 03:58 82 18 100/50 97 12/01/22 03:30 81 96/44 12/01/22 03:12 100.6 F H 12/01/22 02:30 87 98/55 12/01/22 01:00 96 18 105/56 100 12/01/22 00:00 98 96/54 11/30/22 22:06 106 H 20 134/62 100 11/30/22 21:06 94 20 144/71 100 11/30/22 20:06 99 20 141/67 100 11/30/22 19:58 101.9 F H 89 22 161/79 100 Intake and Output 11/30/22 12/01/22 12/01/22 22:59 06:59 14:59 Other: # Voids 1 # Bowel Movements 1 Weight 79.379 kg Results CBC & Chem 7: 11/30/22 20:42 11/30/22 20:42 Labs: Abnormal Lab Results - Last 24 Hours (Table) 11/30/22 11/30/22 11/30/22 Range/Units 20:07 20:42 20:42 WBC 14.1 H (3.8-10.6) k/uL Neutrophils # 13.6 H (1.3-7.7) k/uL Lymphocytes # 0.2 L (1.0-4.8) k/uL Sodium (137-145) mmol/L BUN (9-20) mg/dL Glucose (74-99) mg/dL POC Glucose (mg/dL) 143 H (70-110) mg/dL Plasma Lactic Acid Darshan (0.7-2.0) mmol/L Magnesium (1.6-2.3) mg/dL Urine Protein 1+ H (Negative) Urine Ketones Trace H (Negative) Urine Blood Large H (Negative) Ur Leukocyte Esterase Large H (Negative) Urine RBC >182 H (0-5) /hpf Urine WBC >182 H (0-5) /hpf Urine WBC Clumps Moderate H (None) /hpf Urine Bacteria Rare H (None) /hpf Hyaline Casts 6 H (0-2) /lpf Urine Mucus Occasional H (None) /hpf 11/30/22 11/30/22 11/30/22 Range/Units 20:42 20:42 23:50 WBC (3.8-10.6) k/uL Neutrophils # (1.3-7.7) k/uL Lymphocytes # (1.0-4.8) k/uL Sodium 135 L (137-145) mmol/L BUN 29 H (9-20) mg/dL Glucose 142 H (74-99) mg/dL POC Glucose (mg/dL) (70-110) mg/dL Plasma Lactic Acid Darshan 3.2 H* 3.5 H* (0.7-2.0) mmol/L Magnesium 1.5 L (1.6-2.3) mg/dL Urine Protein (Negative) Urine Ketones (Negative) Urine Blood (Negative) Ur Leukocyte Esterase (Negative) Urine RBC (0-5) /hpf Urine WBC (0-5) /hpf Urine WBC Clumps (None) /hpf Urine Bacteria (None) /hpf Hyaline Casts (0-2) /lpf Urine Mucus (None) /hpf
[2022-12-01] MEDS: MAGNESIUM SULFATE-D5W PMX 1 GM in DEXTROSE/WATER 1 100ML.BAG IVPB SCH ×2 (15:31→17:42)
--- NOTE | 2022-12-01 16:21 | CT ---
EXAMINATION TYPE: CT abdomen pelvis w con CT DLP: 1666.5 mGycm, Automated exposure control for dose reduction was used. DATE OF EXAM: 12/01/2022 2:01 PM COMPARISON: None. CLINICAL INDICATION:Male, 77 years old with history of right sided tenderness; RT side abdomen pain/t enderness TECHNIQUE: Axial CT of the abdomen and pelvis. Sagittal and coronal reformats were created on a [employer] workstation. Contrast used:80 mL of Isovue 370 with IV Contrast, (none if empty) Oral contrast used: without Oral Contrast (none if empty) FINDINGS: LOWER CHEST: The heart is mildly enlarged for size is coronary artery cusp patient's. ABDOMEN LIVER: Simple appearing hepatic cyst. GALLBLADDER AND BILE DUCTS: Unremarkable. PANCREAS: Unremarkable. SPLEEN: Unremarkable. ADRENAL GLANDS: Unremarkable. KIDNEYS AND URETERS: Mild right hydronephrosis secondary obstructing 3 mm calculus at the proximal ur eter/ureteral pelvic junction. Additional nonobstructing right calculus up to 4 mm. No left renal arthur culi. No left hydronephrosis. PELVIS BLADDER: Unremarkable REPRODUCTIVE: Prostate is enlarged in size measuring 4.5 cm in transverse dimension. ABDOMEN & PELVIS STOMACH AND BOWEL: No evidence of bowel obstruction. Scattered colonic diverticula. The appendix is v isualized and appears within normal limits PERITONEUM/RETROPERITONEUM: No evidence of pneumoperitoneum or free fluid. VASCULATURE: No evidence of aortic aneurysm. MUSCULOSKELETAL: No acute osseous abnormalities. Moderate disc degeneration changes are present throu ghout the thoracolumbar spine. Postsurgical changes to the spine with fixation hardware in place. LYMPH NODES: No gross evidence for lymphadenopathy. SOFT TISSUE/ABDOMINAL WALL: No hernia is visualized. IMPRESSION: 1. Mild right hydronephrosis secondary obstructing 3 mm calculus at the proximal ureter/ureteral pel joon junction. Additional nonobstructing right renal calculus. 2. Colonic diverticulosis.
[2022-12-01] MEDS: SODIUM CHLORIDE 0.9% 500 ML 500 ML IV SCH (20:58)
[2022-12-01] MEDS ORDERED: FUROSEMIDE 10 MG/ML 2 ML VIAL IV SCH (21:00)
--- NOTE | 2022-12-01 21:56 | P.CONS ---
History of Present Illness - Reason for Consult Consult date: 12/01/22 - History of Present Illness Patient is a 77-year-old male with a past medical history Nupercaine for hypertension hyperlipidemia BPH presenting to the hospital last night for evaluation of generalized weakness patient symptom has been going on for the last few days and last night the patient was unable to get up from his chair when he was trying to get up his legs would not support him patient did finally hold and have chills patient denies having any headache or URI symptoms no chest pain no shortness of breath or cough no nausea no vomiting no abdominal pain no diarrhea denies any burning or frequency of urine patient did have a fever of 101.9 F on presentation to the hospital the patient was not tachycardic hypotensive or hypoxic patient did have a white count of 14.1 with a left shift creatinine was normal lactic acid was elevated urine was positive for liver enzymes are normal patient did have a chest x-ray borderline heart size mild pulmonary vascular congestion patient was started on Rocephin concerning for UTI with sepsis infectious disease was consulted for further management of antibio tic therapy Past Medical History Past Medical History: Hyperlipidemia, Hypertension, Neurologic Disorder, Prostate Disorder Additional Past Medical History / Comment(s): pain lower back and martin legs, intermittent lower leg swelling, elevated PSA, parkinsons disease, occasional tremors History of Any Multi-Drug Resistant Organisms: None Reported Past Surgical History: Back Surgery, Heart Catheterization, Hernia Repair Additional Past Surgical History / Comment(s): back surgeries x4, for spinal stenosis and excess scar tissue, martin cataract removed Past Anesthesia/Blood Transfusion Reactions: Motion Sickness, Postoperative Nausea & Vomiting (PONV) Past Psychological History: Anxiety Smoking Status: Former smoker Past Alcohol Use History: None Reported Past Drug Use History: None Reported - Past Family History Brother(s) Family Medical History: Cancer Additional Family Medical History / Comment(s): breast Medications and Allergies Home Medications Medication Instructions Recorded Confirmed Type Atorvastatin [Lipitor] 20 mg PO DAILY 09/12/15 11/30/22 History Finasteride [Proscar] 5 mg PO DAILY 09/12/15 11/30/22 History Aspirin [Adult Low Dose Aspirin EC] 81 mg PO DAILY 09/20/15 11/30/22 History Furosemide [Lasix] 20 mg PO DAILY 10/24/17 11/30/22 History Losartan [Cozaar] 25 mg PO DAILY 10/24/17 11/30/22 History B Complex-Vit C-Vit E-Zinc [Z-Bec] 1 tab PO DAILY 03/22/22 11/30/22 History Cholecalciferol (Vitamin D3) 125 mcg PO DAILY 03/22/22 11/30/22 History [Vitamin D3 (125 MCG = 5,000 IU)] DULoxetine HCL 20 mg PO DAILY 03/22/22 11/30/22 History LORazepam 0.5 mg PO HS PRN 03/22/22 11/30/22 History Propranolol [Inderal] 20 mg PO BID 03/22/22 11/30/22 History methocarbamoL [Methocarbamol] 500 mg PO BID 03/22/22 11/30/22 History Carbidopa-Levodopa 25-100 mg 2 tab PO Q6H 11/30/22 11/30/22 History [Sinemet 25-100] Gabapentin [Neurontin] 300 mg PO DAILY PRN 11/30/22 11/30/22 History Potassium Chloride ER [K-Dur 10] 10 meq PO DAILY 11/30/22 11/30/22 History Sennosides/Docusate Sodium [Senna 1 tab PO BID PRN 11/30/22 11/30/22 History Plus 8.6-50 mg Softgel] Allergies Allergy/AdvReac Type Severity Reaction Status Date / Time No Known Allergies Allergy Verified 11/30/22 22:08 Physical Exam Vitals: Vital Signs Temp Pulse Pulse Resp BP BP Pulse Ox 12/01/22 07:31 98.6 F 78 18 110/58 100 12/01/22 06:45 83 17 103/46 97 12/01/22 06:30 75 18 107/53 97 12/01/22 06:00 73 17 99/48 97 12/01/22 05:45 73 16 96/49 97 12/01/22 05:30 75 19 101/50 97 12/01/22 05:00 77 82/46 12/01/22 04:30 94/49 12/01/22 04:00 79 18 103/50 97 12/01/22 03:58 82 18 100/50 97 12/01/22 03:30 81 96/44 12/01/22 03:12 100.6 F H 12/01/22 02:30 87 98/55 12/01/22 01:00 96 18 105/56 100 12/01/22 00:00 98 96/54 11/30/22 22:06 106 H 20 134/62 100 11/30/22 21:06 94 20 144/71 100 11/30/22 20:06 99 20 141/67 100 11/30/22 19:58 101.9 F H 89 22 161/79 100 Intake and Output 11/30/22 12/01/22 12/01/22 22:59 06:59 14:59 Other: # Voids 1 # Bowel Movements 1 Weight 79.379 kg Results CBC & Chem 7: 11/30/22 20:42 11/30/22 20:42 Labs: Abnormal Lab Results - Last 24 Hours (Table) 11/30/22 11/30/22 11/30/22 Range/Units 20:07 20:42 20:42 WBC 14.1 H (3.8-10.6) k/uL Neutrophils # 13.6 H (1.3-7.7) k/uL Lymphocytes # 0.2 L (1.0-4.8) k/uL Sodium (137-145) mmol/L BUN (9-20) mg/dL Glucose (74-99) mg/dL POC Glucose (mg/dL) 143 H (70-110) mg/dL Plasma Lactic Acid Darshan (0.7-2.0) mmol/L Magnesium (1.6-2.3) mg/dL Urine Protein 1+ H (Negative) Urine Ketones Trace H (Negative) Urine Blood Large H (Negative) Ur Leukocyte Esterase Large H (Negative) Urine RBC >182 H (0-5) /hpf Urine WBC >182 H (0-5) /hpf Urine WBC Clumps Moderate H (None) /hpf Urine Bacteria Rare H (None) /hpf Hyaline Casts 6 H (0-2) /lpf Urine Mucus Occasional H (None) /hpf 11/30/22 11/30/22 11/30/22 Range/Units 20:42 20:42 23:50 WBC (3.8-10.6) k/uL Neutrophils # (1.3-7.7) k/uL Lymphocytes # (1.0-4.8) k/uL Sodium 135 L (137-145) mmol/L BUN 29 H (9-20) mg/dL Glucose 142 H (74-99) mg/dL POC Glucose (mg/dL) (70-110) mg/dL Plasma Lactic Acid Darshan 3.2 H* 3.5 H* (0.7-2.0) mmol/L Magnesium 1.5 L (1.6-2.3) mg/dL Urine Protein (Negative) Urine Ketones (Negative) Urine Blood (Negative) Ur Leukocyte Esterase (Negative) Urine RBC (0-5) /hpf Urine WBC (0-5) /hpf Urine WBC Clumps (None) /hpf Urine Bacteria (None) /hpf Hyaline Casts (0-2) /lpf Urine Mucus (None) /hpf Assessment and Plan Plan: 1patient presented to hospital with sepsis in this patient with a fever elevated white count elevated lactic acid and positive UA likely urinary source patient was noticed to be tender on the right side with concern for possible right-sided pyelonephritis versus other intra-abdominal pathology 2-we will obtain CT of abdominal pelvis to rule out any complicated UTI or other intra-abdominal pathology because of right-sided tenderness 3-we will give the patient Rocephin 2 g daily while waiting for the culture to finalize We will follow on clinical condition and cultures to further adjust medication if needed Thank you for this consultation we will follow the patient along with you Dictation was produced using [employer] dictation software. please excuse any grammatical, word or spelling errors. Time with Patient: Greater than 30
[2022-12-02] MEDS: CARBIDOPA-LEVODOPA 25-100 MG 1 EACH TAB PO SCH ×4 (01:38→18:00)
[2022-12-02] MEDS ORDERED: FUROSEMIDE 10 MG/ML 2 ML VIAL IV SCH (09:00)
[2022-12-02 09:03] LABS: Basophils # (A) 0.02 X 10*3/uL (0.00-0.10); Basophils % (A) 0.2 %; Eosinophils # (A) 0.06 X 10*3/uL (0.04-0.35); Eosinophils % (A) 0.7 %; HCT 33.8 % (39.6-50.0); HGB 10.8 d/dL (13.0-17.0); Lymphocytes # (A) 0.47 X 10*3/uL (0.90-5.00); Lymphocytes % (A) 5.1 %; MCV 90.6 FL (80.0-97.0); Mean Platelet Volume 10.2 FL (9.5-12.2); Monocytes # (A) 0.47 X 10*3/uL (0.20-1.00); Monocytes % (A) 5.1 %; NRBC Per 100 WBC 0 X 10*3/uL (0.00-0.01); Neutrophils # (A) 8.12 X 10*3/uL (1.80-7.70); Neutrophils % (A) 88.5 %; Platelet Count 110 X 10*3/uL (140-440); RBC 3.73 X 10*6/uL (4.40-5.60); RDW 13.7 % (11.5-14.5); WBC 9.18 X 10*3/uL (4.50-10.00)
[2022-12-02] MEDS: POTASSIUM CHLORIDE ER 10 MEQ TAB.ER.PRT PO SCH (09:07)
[2022-12-02] MEDS: FOLIC ACID-VIT B COMPLEX-VIT C 1 CAP PO SCH (09:07)
[2022-12-02] MEDS: ACETAMINOPHEN TAB 325 MG TAB PO PRN (09:07)
[2022-12-02] MEDS: ASPIRIN 81 MG PO SCH (09:07)
[2022-12-02] MEDS: CHOLECALCIFEROL 125 MCG (5000 IU) TABLET PO SCH (09:07)
[2022-12-02] MEDS: FAMOTIDINE 20 MG TAB PO SCH (09:08)
[2022-12-02] MEDS: ENOXAPARIN 40 MG/0.4 ML SYRINGE SQ SCH (09:08)
[2022-12-02] MEDS: FINASTERIDE 5 MG TAB PO SCH (09:08)
[2022-12-02] MEDS: PROPRANOLOL 20 MG TAB PO SCH ×2 (09:08→21:49)
[2022-12-02] MEDS: LOSARTAN 25 MG TAB PO SCH (09:08)
[2022-12-02] MEDS: methocarbamoL 500 MG TAB PO SCH ×2 (09:08→21:49)
[2022-12-02] MEDS: ATORVASTATIN 20 MG TAB PO SCH (09:08)
[2022-12-02] MEDS: DULoxetine HCL 20 MG CAPSULE.DR PO SCH (09:08)
[2022-12-02 09:12] LABS: ALT <5 U/L (10-49); AST 47 U/L (14-35); Alkaline Phosphatase 73 U/L (41-126); Blood Urea Nitrogen 25.4 mg/dL (9.0-27.0); Calcium 8.4 mg/dL (8.7-10.3); Chloride 105 mmol/L (96-109); Glucose 104 mg/dL (70-110); Magnesium 2.3 mg/dL (1.5-2.4); Potassium 4.1 mmol/L (3.5-5.5); Sodium 138 mmol/L (135-145); Total Bilirubin 0.3 mg/dL (0.3-1.2)
--- NOTE | 2022-12-02 10:46 | P.PN ---
Subjective Progress Note Date: 12/02/22 HISTORY OF PRESENT ILLNESS: This is a 77-year-old male with a previous medical history significant for hypertension and hypertensive cardio vascular disease hyperlipidemia, Parkinson disease, mitral regurgitation, ALLERGIC rhinitis, major depressive disorder, chronic low back pain due to spondylosis of the lumbar spine with a spinal stenosis status post multiple laminectomies and fusion the last one was this year that was done by Dr. song followed by a long stay at an extended care facility for physical therapy rehabilitation, after that the patient was discharged back home, patient was in his usual state of health is been doing fine with Physical therapy and occupational therapy, he was sitting in the recliner and all of a sudden he felt extremely weak he could not stand up, and patient was complaining of some pain in the right lower quadrant as well no nausea but no vomiting, positive for loose stool he was not having any fever or chills he felt a bit warm he was brought into the ER at [facility] yesterday, and he was found to have a urinary tract infection with SIRS, patient was given IV fluid resuscitation, and he was started on IV antibiotic in the form of ceftriaxone after obtaining blood cultures and urine culture apparently the patient while he was on the floor he had hypotensive episode a rapid response team was called and the patient and he was given a bolus of fluid 500 mL and he was placed on 130 mL an hour of normal saline, his chest x-ray showed evidence of pulmonary vascular congestion by the time I came to see the patient patient was on 5 L nasal cannula was decreased down to 2 L nasal cannula his oxygen was around 94%, patient also was showing some sinus congestion, he was started on Lasix 20 mg IV push 24 every 24 hours and his IV fluids were cut down to KVO. I have obtain a cardiology consultation as well as infectious disease consultation will recommended to have a computed tomography scan of the abdomen and pelvis further evaluation to rule out any nephrolithiasis or any abnormalities. 12/02: Patient is doing better today, he denies any chest pain, he has no shortness breath, he is down to 2 L cannula, he denies any abdominal pain, had a computed tomography scan of the abdomen and pelvis yesterday that did show evide nce of mild right sided hydronephrosis due to obstructing stone and bilateral renal stones as well we will consult Dr. hamlin for further evaluation and recommendation meanwhile continue the patient on Rocephin 2 g IV piggyback every 24 hours, monitor the patient input and output and daily weight, monitor the patient very closely. REVIEW OF SYSTEMS: Constitutional: No documented fever, no chills, no night sweats. No weight change. No weakness, fatigue or lethargy. No daytime sleepiness. HEENT: No headache. No blurred vision or double vision, no loss of vision. No loss of Hearing, no ringing in the ears, no dizziness. No nasal drainage or congestion. No epistaxis. No sore throat. Lungs: No shortness of breath, no cough, no sputum production. No wheezing. Reports dyspnea with activity. Cardiovascular: No chest pain, mild lower extremity edema. No palpitations. No paroxysmal nocturnal dyspnea. No orthopnea. mild dizziness Abdominal: Reports abdominal pain. No nausea, vomiting. No diarrhea. No constipation. No bloody or tarry stools reports loss of appetite. Genitourinary: No dysuria, increased frequency, urgency. No urinary retention. Musculoskeletal: No myalgias. positive for muscle weakness, positive for gait dysfunction, no frequent falls. positive for back pain. No neck pain. Integumentary: No wounds, no lesions. No rash or pruritus. No unusual brui sing. No change in hair or nails. Neurologic: No aphasia. No facial droop. No change in mentation. No head injury. No headache. No paralysis. No paresthesia, resting tremor and minimal rigidity Psychiatric: No depression. No anxiety. No mood swings. Endocrine: No abnormal blood sugars. No weight change. PHYSICAL EXAMINATION: General: 77-year-old male sitting up in bed and no distress. HEENT: Head is atraumatic, normocephalic, pupils were equal round reactive to light and recommendation, extraocular muscle movement were intact, sclera nonicteric, conjunctivae were pale, mucous membranes of the mouth are somewhat dry. Neck: Supple, no JVP, normal carotid upstroke bilaterally, no lymphadenopathy. Chest: Decreased breath sounds at the bases, few rhonchi, no expiratory wheezes, no chest wall tenderness, no intercostal retractions. Heart: First heart sound is normal, second heart sound is normal there is WILL 2/6 located at the left sternal order Abdomen: Soft, mild tenderness to the right lower quadrant nondistended, positive bowel sounds. Extremities: There is +1 edema no calf tenderness DP +2 bilaterally. Neurologic examination: Patient is awake alert and oriented X 3, cranial nerves II-12 appear grossly intact, muscle power were 4 out of 5 in upper extremities and 3 out of 5 in bilateral lower extremities, deep tendon reflexes were depressed and resting tremors ASSESSMENT AND PLAN: 1. Acute urinary tract infection with SIRS. Blood culture, urine culture, continue ceftriaxone 2 g IV piggyback every 24 hours, computed tomography scan of the abdomen and pelvis did show evidence of bilateral kidney stones and obstructive stone in the right side with mild hydronephrosis consult Urology 2. Mild right-sided hydronephrosis due to obstructive kidney stone. Consult urology Dr. hamlin continue IV , start Flomax 0.4 mg po daily 3. Lactic acidosis due to hypotension. Back to normal already decrease IV fluid to KVO. 4. chronic diastolic heart failure. Lasix 20 mg once every day as well as potassium supplement continue losartan 25 mg once every day. 5. Hypertension and hypertensive cardiovascular disease. Continue patient on losartan 25 mg once every day, monitor the patient blood pressure very closely. 6. Mixed hyperlipidemia. Continue patient on atorvastatin 20 mg orally once every day. 7. Parkinson disease. Continue patient on Sinemet 25/102 tablet orally 4 times every day. 8. Enlarged prostate. Continue patient on finasteride 5 mg once every day and added Flomax 0.4 mg po daily 9. Depression as well as peripheral neuropathy due to significant spondylosis of the lumbar spine continue patient on duloxetine 20 mg orally once every day. 10. Vitamin D deficiency. Continue patient on vitamin D3 5000 units once every day. 11. DVT prophylaxis. Lovenox 40 mg subcutaneously every 24 hours. 12. GI prophylaxis. Continue patient on Protonix 40 mg orally once every day. 13. Mild protein calorie malnutrition. Start the patient on ensure twice every day. 14. Medical debility due to chronic medical conditions. Physical therapy evaluation. 15. Home in AM Objective - Vital Signs Vital signs: Vital Signs Temp 97.8 F 12/02/22 06:46 Pulse 59 L 12/02/22 06:46 Resp 16 12/02/22 06:46 BP 107/66 12/02/22 06:46 Pulse Ox 97 12/02/22 06:46 FiO2 Intake & Output 12/01/22 12/02/22 12/02/22 18:59 06:59 18:59 Weight 79.379 kg Other: Voiding Method Bedside Commode Bedside Commode # Voids 2 1 1 # Bowel Movements 1 1 1 - Labs CBC & Chem 7: 12/02/22 05:54 12/02/22 05:54 Labs: Abnormal Lab Results - Last 24 Hours (Table) 12/02/22 12/02/22 Range/Units 05:54 05:54 RBC 3.73 L (4.40-5.60) X 10*6/uL Hgb 10.8 L (13.0-17.0) d/dL Hct 33.8 L (39.6-50.0) % Plt Count 110 L (140-440) X 10*3/uL Neutrophils # 8.12 H (1.80-7.70) X 10*3/uL Lymphocytes # 0.47 L (0.90-5.00) X 10*3/uL BUN/Creatinine Ratio 25.40 H (12.00-20.00) Ratio Calcium 8.4 L (8.7-10.3) mg/dL AST 47 H (14-35) U/L ALT <5 L (10-49) U/L Total Protein 5.0 L (6.2-8.2) d/dL Albumin 3.0 L (3.8-4.9) d/dL Albumin/Globulin Ratio 1.50 L (1.60-3.17) Ratio Microbiology - Last 24 Hours (Table) 11/30/22 22:36 Blood Culture - Preliminary Blood 11/30/22 22:21 Blood Culture - Preliminary Blood
[2022-12-02] MEDS: TAMSULOSIN 0.4 MG CAP.ER.24H PO SCH (10:51)
[2022-12-02] MEDS: SODIUM CHLORIDE 0.9% 500 ML 500 ML IV SCH (11:06)
--- NOTE | 2022-12-02 19:34 | P.PN ---
Subjective Progress Note Date: 12/02/22 Principal diagnosis: sepsis/UTI Patient is a 77-year-old male with a past medical history Nupercaine for hypertension hyperlipidemia BPH presenting to the hospital for evaluation of generalized weakness patient symptom has been going on for the last few days, patient work-up which was a positive UA he did have a CT of abdominal pelvis mild right hydronephrosis secondary to 3 mm calculus at the proximal ureteral pelvic junction. On today's evaluation that is 12/02/2022 patient did have resolution of his fever he is breathing comfortably on room air patient denies having any chest pain shortness of breath or cough no nausea vomiting or diarrhea. Patient white count normalized to 9.18, creatinine is 1.0 urine showing gram- negative blood cultures are pending Objective - Vital Signs Vital signs: Vital Signs Temp 98.0 F 12/02/22 13:25 Pulse 59 L 12/02/22 13:25 Resp 16 12/02/22 13:25 BP 137/67 12/02/22 13:25 Pulse Ox 99 12/02/22 13:25 FiO2 Intake & Output 12/01/22 12/02/22 12/02/22 18:59 06:59 18:59 Weight 79.379 kg Other: Voiding Method Bedside Commode Bedside Commode Bedside Commode # Voids 2 1 1 # Bowel Movements 1 1 1 - Exam GENERAL DESCRIPTION: Elderly male lying in bed in no distress RESPIRATORY SYSTEM: Unlabored breathing , decreased breath sounds at bases HEART: S1 S2 regular rate and rhythm ,no loud murmurs ABDOMEN: Soft , no tenderness EXTREMITIES: No edema feet - Labs CBC & Chem 7: 12/02/22 05:54 12/02/22 05:54 Labs: Abnormal Lab Results - Last 24 Hours (Table) 12/02/22 12/02/22 Range/Units 05:54 05:54 RBC 3.73 L (4.40-5.60) X 10*6/uL Hgb 10.8 L (13.0-17.0) d/dL Hct 33.8 L (39.6-50.0) % Plt Count 110 L (140-440) X 10*3/uL Neutrophils # 8.12 H (1.80-7.70) X 10*3/uL Lymphocytes # 0.47 L (0.90-5.00) X 10*3/uL BUN/Creatinine Ratio 25.40 H (12.00-20.00) Ratio Calcium 8.4 L (8.7-10.3) mg/dL AST 47 H (14-35) U/L ALT <5 L (10-49) U/L Total Protein 5.0 L (6.2-8.2) d/dL Albumin 3.0 L (3.8-4.9) d/dL Albumin/Globulin Ratio 1.50 L (1.60-3.17) Ratio Microbiology - Last 24 Hours (Table) 11/30/22 20:42 Urine Culture - Preliminary Urine,Clean Catch Gram Neg Bacilli 11/30/22 22:36 Blood Culture - Preliminary Blood 11/30/22 22:21 Blood Culture - Preliminary Blood Assessment and Plan (1) Sepsis Current Visit: Yes Status: Acute Code(s): A41.9 - SEPSIS, UNSPECIFIED ORGANISM SNOMED Code(s): 25096909 (2) Hydronephrosis Current Visit: Yes Status: Acute Code(s): N13.30 - UNSPECIFIED HYDRONEPHROSIS SNOMED Code(s): 82296407 (3) Urinary tract infection Current Visit: Yes Status: Acute Code(s): N39.0 - URINARY TRACT INFECTION, SITE NOT SPECIFIED SNOMED Code(s): 27872676 Plan: 1patient presented to hospital with sepsis in this patient with a fever elevated white count elevated lactic acid and positive UA likely urinary source patient was noticed to be tender on the right side with concern for possible right-sided pyelonephritis versus other intra-abdominal pathology 2CT abdominal pelvis with mild right-sided hydronephrosis secondary 3 mm stone urine showing gram-negative blood cultures pending. 3we will keep the patient on Rocephin 2 g daily while waiting for the culture to finalize and monitor clinical course closely Dictation was produced using [employer] dictation software. please excuse any grammatical, word or spelling errors.
[2022-12-03] MEDS: CARBIDOPA-LEVODOPA 25-100 MG 1 EACH TAB PO SCH ×4 (00:27→18:13)
[2022-12-03] MEDS: ACETAMINOPHEN TAB 325 MG TAB PO PRN ×2 (06:17→19:50)
[2022-12-03 08:52] LABS: Basophils # (A) 0.01 X 10*3/uL (0.00-0.10); Basophils % (A) 0.2 %; Eosinophils % (A) 1.7 %; HCT 34.7 % (39.6-50.0); HGB 10.8 d/dL (13.0-17.0); Lymphocytes # (A) 0.88 X 10*3/uL (0.90-5.00); Lymphocytes % (A) 14.9 %; MCH 28.6 pg (27.0-32.0); MCHC 31.1 d/dL (32.0-37.0); MCV 91.8 FL (80.0-97.0); Mean Platelet Volume 10.3 FL (9.5-12.2); Monocytes # (A) 0.54 X 10*3/uL (0.20-1.00); Monocytes % (A) 9.1 %; NRBC Per 100 WBC 0 X 10*3/uL (0.00-0.01); Neutrophils # (A) 4.36 X 10*3/uL (1.80-7.70); Neutrophils % (A) 73.6 %; Platelet Count 122 X 10*3/uL (140-440); RBC 3.78 X 10*6/uL (4.40-5.60); RDW 13.5 % (11.5-14.5); WBC 5.92 X 10*3/uL (4.50-10.00)
[2022-12-03 09:17] LABS: ALT 5 U/L (10-49); AST 42 U/L (14-35); Albumin 3.1 d/dL (3.8-4.9); Albumin/Globulin Ratio 1.41 Ratio (1.60-3.17); Alkaline Phosphatase 74 U/L (41-126); Blood Urea Nitrogen 19.8 mg/dL (9.0-27.0); Calcium 8.5 mg/dL (8.7-10.3); Carbon Dioxide 26.1 mmol/L (21.6-31.8); Chloride 106 mmol/L (96-109); Globulin 2.2 d/dL (1.6-3.3); Glucose 92 mg/dL (70-110); Potassium 4.4 mmol/L (3.5-5.5); Sodium 140 mmol/L (135-145); Total Bilirubin 0.2 mg/dL (0.3-1.2); Total Protein 5.3 d/dL (6.2-8.2)
[2022-12-03] MEDS: FOLIC ACID-VIT B COMPLEX-VIT C 1 CAP PO SCH (10:41)
[2022-12-03] MEDS: LOSARTAN 25 MG TAB PO SCH (10:41)
[2022-12-03] MEDS: TAMSULOSIN 0.4 MG CAP.ER.24H PO SCH (10:41)
[2022-12-03] MEDS: PROPRANOLOL 20 MG TAB PO SCH ×2 (10:42→21:29)
[2022-12-03] MEDS: methocarbamoL 500 MG TAB PO SCH ×2 (10:42→21:29)
[2022-12-03] MEDS: FINASTERIDE 5 MG TAB PO SCH (10:42)
[2022-12-03] MEDS: POTASSIUM CHLORIDE ER 10 MEQ TAB.ER.PRT PO SCH (10:42)
[2022-12-03] MEDS: ENOXAPARIN 40 MG/0.4 ML SYRINGE SQ SCH (10:42)
[2022-12-03] MEDS: ASPIRIN 81 MG PO SCH (10:42)
[2022-12-03] MEDS: FUROSEMIDE 20 MG TAB PO SCH (10:42)
[2022-12-03] MEDS: DULoxetine HCL 20 MG CAPSULE.DR PO SCH (10:42)
[2022-12-03] MEDS: FAMOTIDINE 20 MG TAB PO SCH (10:42)
[2022-12-03] MEDS: CHOLECALCIFEROL 125 MCG (5000 IU) TABLET PO SCH (10:42)
[2022-12-03] MEDS: ATORVASTATIN 20 MG TAB PO SCH (10:42)
[2022-12-03] MEDS: SODIUM CHLORIDE 0.9% 500 ML 500 ML IV SCH (12:31)
[2022-12-03] MEDS: GABAPENTIN 300 MG CAP PO PRN (13:58)
--- NOTE | 2022-12-03 16:06 | CA ---
Transthoracic Echo Report Name: Cash Tanner Age: 77 Gender: M : 1945 Exam Date: 12/03/2022 09:52 Exam Location: [facility] Ht (in): 64 Wt (lb): 175 Ordering Physician: Linda Thomas MD Attending/Referring Phys: Surgical Instrument Maker Marco Antonio Carty Procedure CPT: Indications: chf Cardiac Hx: Technical Quality: Fair Contrast 1: Total Dose (mL): Contrast 2: Total Dose (mL): MEASUREMENTS (Male / Female) Normal Values 2D ECHO LV Diastolic Diameter PLAX 3.7 cm 4.2 - 5.9 / 3.9 - 5.3 cm LV Systolic Diameter PLAX 2.3 cm IVS Diastolic Thickness 1.1 cm 0.6 - 1.0 / 0.6 - 0.9 cm LVPW Diastolic Thickness 1.0 cm 0.6 - 1.0 / 0.6 - 0.9 cm LV Relative Wall Thickness 0.6 RV Internal Dim ED PLAX 2.9 cm LVOT Diameter 2.1 cm Aortic Root Diameter 3.3 cm LA Systolic Diameter LX 3.0 cm 3.0 - 4.0 / 2.7 - 3.8 cm LV Diastolic Volume MOD BP 58.1 cm??? 67 - 155 / 56 - 104 cm??? LV Systolic Volume MOD BP 31.2 cm??? 22 - 58 / 19 - 49 cm??? LV Ejection Fraction MOD BP 46.4 % >= 55 % LV Cardiac Index MOD BP 857.0 cm???/min???m??? LV Diastolic Volume MOD 4C 69.6 cm??? LV Systolic Volume MOD 4C 28.5 cm??? LV Ejection Fraction MOD 4C 59.1 % LV Cardiac Index MOD 4C 1308.6 cm???/min???m??? LV Diastolic Length 4C 7.2 cm LV Systolic Length 4C 5.9 cm LV Diastolic Volume MOD 2C 48.7 cm??? LV Systolic Volume MOD 2C 30.9 cm??? LV Ejection Fraction MOD 2C 36.5 % LV Cardiac Index MOD 2C 565.2 cm???/min???m??? LV Diastolic Length 2C 7.2 cm LV Systolic Length 2C 6.5 cm LA Volume 79.4 cm??? 18 - 58 / 22 - 52 cm??? LA Volume Index 41.4 cm???/m??? 16 - 28 cm???/m??? Ascending Aorta Diameter 3.2 cm DOPPLER AV Peak Velocity 159.1 cm/s AV Peak Gradient 10.1 mmHg AI Peak Velocity 341.2 cm/s AI Peak Gradient 46.6 mmHg AI Pressure Half Time 634.9 ms LVOT Peak Velocity 106.3 cm/s LVOT Peak Gradient 4.5 mmHg LVOT Velocity Time Integral 27.1 cm LVOT Stroke Volume 97.6 cm??? LVOT Stroke Volume Index 52.8 ml/m??? LVOT Cardiac Index 3101.4 cm???/min???m??? AV Area Cont Eq pk 2.4 cm??? MV Peak Velocity 117.4 cm/s MV Peak Gradient 5.5 mmHg MV Mean Velocity 57.0 cm/s MV Mean Gradient 1.7 mmHg MV Velocity Time Integral 47.3 cm MR Peak Velocity 402.7 cm/s MR Peak Gradient 64.9 mmHg Mitral E Point Velocity 104.8 cm/s Mitral A Point Velocity 98.4 cm/s Mitral E to A Ratio 1.1 MV Deceleration Time 269.2 ms MV E' Velocity 6.3 cm/s Mitral E to MV E' Ratio 16.7 TR Peak Velocity 235.3 cm/s TR Peak Gradient 22.1 mmHg Right Ventricular Systolic Press 27.1 mmHg PV Peak Velocity 80.1 cm/s PV Peak Gradient 2.6 mmHg FINDINGS Left Ventricle Normal LV size and wall thickness. Left ventricular ejection fraction is estimated at 55-60 %. Right Ventricle Normal right ventricular size. Right Atrium Normal right atrial size. Left Atrium Normal left atrial size. Mitral Valve Structurally normal mitral valve. Trace MR. Aortic Valve Trileaflet aortic valve. Mild to moderate AV calcification. Mild to moderate AI. Tricuspid Valve Tricuspid valve not well visualized. Trace TR. Pulmonic Valve Pulmonic valve not well visualized. Trace PI. Pericardium Normal pericardium. Aorta Normal size aortic root and proximal ascending aorta. CONCLUSIONS Normal LV size and systolic function Previewed by: Dr. Eliezer Vicente MD (Electronically Signed) Final Date: 03 December 2022 16:04
--- NOTE | 2022-12-03 18:01 | P.CRDCN ---
History of Present Illness History of present illness: This is Dr. Vicente dictating an H/P on this patient The patient was interviewed and examined IMPRESSION / ASSESSMENT: Generalized weakness Being treated for UTI with SIRS History of hypertension PLAN: Continue observation on telemetry. Pt does not seem to be in heart failure HPI patient presented with weakness and dizziness Denies any chest pain or shortness of breath First EKG showed sinus rhythm with heart rates from 90 beats a minute ROS: No fever chills or rigors, no cough, phlegm or expectoration, no nausea, vomiting or diarrhea, no hematuria, dysuria, no musculoskeletal complaints, no strokes or seizures, no skin lesions. EXAMINATION: Breath sounds are clear no rhonchi no crackles Heart sounds S1 and S2 are normal line no murmurs REVIEW OF LABS, ECG & MEDICAL DATA 2-D echo shows normal LV systolic function no structural valvular abnormalities Past Medical History Past Medical History: Hyperlipidemia, Hypertension, Neurologic Disorder, Prostate Disorder Additional Past Medical History / Comment(s): pain lower back and martin legs, intermittent lower leg swelling, elevated PSA, parkinsons disease, occasional tremors History of Any Multi-Drug Resistant Organisms: None Reported Past Surgical History: Back Surgery, Heart Catheterization, Hernia Repair Additional Past Surgical History / Comment(s): back surgeries x4, for spinal stenosis and excess scar tissue, martin cataract removed Past Anesthesia/Blood Transfusion Reactions: Motion Sickness, Postoperative Nausea & Vomiting (PONV) Past Psychological History: Anxiety Smoking Status: Former smoker Past Alcohol Use History: None Reported Past Drug Use History: None Reported - Past Family History Brother(s) Family Medical History: Cancer Additional Family Medical History / Comment(s): breast Medications and Allergies Home Medications Medication Instructions Recorded Confirmed Type Atorvastatin [Lipitor] 20 mg PO DAILY 09/12/15 11/30/22 History Finasteride [Proscar] 5 mg PO DAILY 09/12/15 11/30/22 History Aspirin [Adult Low Dose Aspirin EC] 81 mg PO DAILY 09/20/15 11/30/22 History Furosemide [Lasix] 20 mg PO DAILY 10/24/17 11/30/22 History Losartan [Cozaar] 25 mg PO DAILY 10/24/17 11/30/22 History B Complex-Vit C-Vit E-Zinc [Z-Bec] 1 tab PO DAILY 03/22/22 11/30/22 History Cholecalciferol (Vitamin D3) 125 mcg PO DAILY 03/22/22 11/30/22 History [Vitamin D3 (125 MCG = 5,000 IU)] DULoxetine HCL 20 mg PO DAILY 03/22/22 11/30/22 History LORazepam 0.5 mg PO HS PRN 03/22/22 11/30/22 History Propranolol [Inderal] 20 mg PO BID 03/22/22 11/30/22 History methocarbamoL [Methocarbamol] 500 mg PO BID 03/22/22 11/30/22 History Carbidopa-Levodopa 25-100 mg 2 tab PO Q6H 11/30/22 11/30/22 History [Sinemet 25-100] Gabapentin [Neurontin] 300 mg PO DAILY PRN 11/30/22 11/30/22 History Potassium Chloride ER [K-Dur 10] 10 meq PO DAILY 11/30/22 11/30/22 History Sennosides/Docusate Sodium [Senna 1 tab PO BID PRN 11/30/22 11/30/22 History Plus 8.6-50 mg Softgel] Allergies Allergy/AdvReac Type Severity Reaction Status Date / Time No Known Allergies Allergy Verified 11/30/22 22:08 Physical Exam Vitals: Vital Signs Temp Pulse Resp BP Pulse Ox 12/03/22 14:00 97.4 F L 56 L 16 132/64 98 12/03/22 10:41 57 L 20 12/03/22 07:02 97.4 F L 57 L 19 145/79 96 12/03/22 01:30 97.9 F 56 L 151/76 98 12/02/22 20:00 97.9 F 54 L 172/90 99 Intake and Output 12/03/22 12/03/22 12/03/22 06:59 14:59 22:59 Intake Total 200 Balance 200 Intake: Oral 200 Other: Voiding Method Bedside Commode # Voids 1 2 3 # Bowel Movements 1 1 Results 12/03/22 05:47 12/03/22 05:47 Cardiac Enzymes 12/03/22 Range/Units 05:47 AST 42 H (14-35) U/L CBC 12/03/22 Range/Units 05:47 WBC 5.92 (4.50-10.00) X 10*3/uL RBC 3.78 L (4.40-5.60) X 10*6/uL Hgb 10.8 L (13.0-17.0) d/dL Hct 34.7 L (39.6-50.0) % Plt Count 122 L (140-440) X 10*3/uL Comprehensive Metabolic Panel 12/03/22 Range/Units 05:47 Sodium 140 (135-145) mmol/L Potassium 4.4 (3.5-5.5) mmol/L Chloride 106 (96-109) mmol/L Carbon Dioxide 26.1 (21.6-31.8) mmol/L BUN 19.8 (9.0-27.0) mg/dL Creatinine 0.9 (0.6-1.5) mg/dL Glucose 92 (70-110) mg/dL Calcium 8.5 L (8.7-10.3) mg/dL AST 42 H (14-35) U/L ALT 5 L (10-49) U/L Alkaline Phosphatase 74 (41-126) U/L Total Protein 5.3 L (6.2-8.2) d/dL Albumin 3.1 L (3.8-4.9) d/dL Current Medications Generic Name Dose Route Start Last Admin Trade Name Freq PRN Reason Stop Dose Admin Acetaminophen 650 mg 12/01/22 00:56 12/03/22 06:17 Acetaminophen Tab 325 Mg Tab PO 650 mg Q6HR PRN Administration Mild Pain or Fever > 100.5 Al Hydroxide/Mg Hydroxide 15 ml 12/01/22 00:56 Mag Hydrox/Al Hydrox/Simeth 30 Ml Cup PO Q6HR PRN Indigestion Aspirin 81 mg 12/01/22 09:00 12/03/22 10:42 Aspirin 81 Mg PO 81 mg DAILY ROGER Administration Atorvastatin Calcium 20 mg 12/01/22 09:00 12/03/22 10:42 Atorvastatin 20 Mg Tab PO 20 mg DAILY ROGER Administration Carbidopa/Levodopa 2 each 12/01/22 01:15 12/03/22 13:31 Carbidopa-Levodopa 25-100 Mg 1 Each Tab PO 2 each Q6H ROGER Administration Cholecalciferol 125 mcg 12/01/22 09:00 12/03/22 10:42 Cholecalciferol 125 Mcg (5000 Iu) Tablet PO 125 mcg DAILY ROGER Administration Ciprofloxacin 500 mg 12/03/22 21:00 Ciprofloxacin Hcl 500 Mg Tab PO BID [facility] Protocol Duloxetine HCl 20 mg 10/14/23 09:00 12/03/22 10:42 Duloxetine Hcl 20 Mg Capsule.Dr PO 20 mg DAILY ROGER Administration Enoxaparin Sodium 40 mg 12/02/22 09:00 12/03/22 10:42 Enoxaparin 40 Mg/0.4 Ml Syringe SQ 40 mg DAILY ROGER Administration Famotidine 20 mg 12/02/22 09:00 12/03/22 10:42 Famotidine 20 Mg Tab PO 20 mg DAILY ROGER Administration Finasteride 5 mg 12/01/22 09:00 12/03/22 10:42 Finasteride 5 Mg Tab PO 5 mg DAILY ROGER Administration Furosemide 20 mg 12/03/22 09:00 12/03/22 10:42 Furosemide 20 Mg Tab PO 20 mg DAILY ROGER Administration Gabapentin 300 mg 12/01/22 01:02 12/03/22 13:58 Gabapentin 300 Mg Cap PO 300 mg DAILY PRN Administration Pain Sodium Chloride 500 mls @ 20 mls/hr 12/01/22 11:00 12/03/22 12:31 Saline 0.9% IV Not Given .Q24H [facility] Losartan Potassium 25 mg 12/01/22 09:00 12/03/22 10:41 Losartan 25 Mg Tab PO 25 mg DAILY ROGER Administration Methocarbamol 500 mg 12/01/22 09:00 12/03/22 10:42 Methocarbamol 500 Mg Tab PO 500 mg BID ROGER Administration Multivit/Ca Carb/B Cmplx/FA/Prenat 1 each 12/01/22 09:00 12/03/22 10:41 Folic Acid-Vit B Complex-Vit C 1 Cap PO 1 each DAILY ROGER Administration Naloxone HCl 0.2 mg 12/01/22 00:51 Naloxone 0.4 Mg/Ml 1 Ml Vial IV Q2M PRN Opioid Reversal Potassium Chloride 10 meq 12/02/22 09:00 12/03/22 10:42 Potassium Chloride Er 10 Meq Tab.Er.Prt PO 10 meq DAILY ROGER Administration Propranolol HCl 20 mg 12/01/22 09:00 12/03/22 10:42 Propranolol 20 Mg Tab PO 20 mg BID ORGER Administration Senna/Docusate Sodium 1 each 12/01/22 01:02 Sennosides-Docusate Sodium 1 Each Tab PO BID PRN Constipation Tamsulosin HCl 0.4 mg 12/02/22 09:45 12/03/22 10:41 Tamsulosin 0.4 Mg Cap.Er.24h PO 0.4 mg [id number] ROGER Administration Intake and Output 12/03/22 12/03/22 12/03/22 06:59 14:59 22:59 Intake Total 200 Balance 200 Intake: Oral 200 Other: Voiding Method Bedside Commode # Voids 1 2 3 # Bowel Movements 1 1 12/03/22 05:47 12/03/22 05:47
[2022-12-03] MEDS: CIPROFLOXACIN HCL 500 MG TAB PO SCH (21:29)
[2022-12-04] MEDS: CARBIDOPA-LEVODOPA 25-100 MG 1 EACH TAB PO SCH ×3 (00:50→12:30)
[2022-12-04] MEDS: ACETAMINOPHEN TAB 325 MG TAB PO PRN ×2 (00:54→11:08)
--- NOTE | 2022-12-04 06:34 | P.GSCN ---
History of Present Illness Consult date: 12/03/22 Reason for Consult: Right ureteral calculus Requesting physician: Linda Thomas History of present illness: The patient is a 77-year-old white male admitted with weakness and chills. ER evaluation revealed a UTI, and he was admitted and treated with IV antibiotics. A CT scan performed on 12/01/2022 showed mild right hydronephrosis due to a 3-4 mm right proximal ureteral calculus. A tiny right renal calculus was also seen. The patient has experienced mild right flank discomfort intermittently since he was admitted. Review of Systems - Constitutional Reports chills, Reports fever, Reports weakness - Genitourinary Reports flank pain, Reports kidney stones, Denies dysuria, Denies hematuria Past Medical History Past Medical History: Hyperlipidemia, Hypertension, Neurologic Disorder, Prostate Disorder Additional Past Medical History / Comment(s): pain lower back and martin legs, intermittent lower leg swelling, elevated PSA, parkinsons disease, occasional tremors History of Any Multi-Drug Resistant Organisms: None Reported Past Surgical History: Back Surgery, Heart Catheterization, Hernia Repair Additional Past Surgical History / Comment(s): back surgeries x4, for spinal stenosis and excess scar tissue, martin cataract removed Past Anesthesia/Blood Transfusion Reactions: Motion Sickness, Postoperative Nausea & Vomiting (PONV) Past Psychological History: Anxiety Smoking Status: Former smoker Past Alcohol Use History: None Reported Past Drug Use History: None Reported - Past Family History Brother(s) Family Medical History: Cancer Additional Family Medical History / Comment(s): breast Medications and Allergies Home Medications Medication Instructions Recorded Confirmed Type Atorvastatin [Lipitor] 20 mg PO DAILY 09/12/15 11/30/22 History Finasteride [Proscar] 5 mg PO DAILY 09/12/15 11/30/22 History Aspirin [Adult Low Dose Aspirin EC] 81 mg PO DAILY 09/20/15 11/30/22 History Furosemide [Lasix] 20 mg PO DAILY 10/24/17 11/30/22 History Losartan [Cozaar] 25 mg PO DAILY 10/24/17 11/30/22 History B Complex-Vit C-Vit E-Zinc [Z-Bec] 1 tab PO DAILY 03/22/22 11/30/22 History Cholecalciferol (Vitamin D3) 125 mcg PO DAILY 03/22/22 11/30/22 History [Vitamin D3 (125 MCG = 5,000 IU)] DULoxetine HCL 20 mg PO DAILY 03/22/22 11/30/22 History LORazepam 0.5 mg PO HS PRN 03/22/22 11/30/22 History Propranolol [Inderal] 20 mg PO BID 03/22/22 11/30/22 History methocarbamoL [Methocarbamol] 500 mg PO BID 03/22/22 11/30/22 History Carbidopa-Levodopa 25-100 mg 2 tab PO Q6H 11/30/22 11/30/22 History [Sinemet 25-100] Gabapentin [Neurontin] 300 mg PO DAILY PRN 11/30/22 11/30/22 History Potassium Chloride ER [K-Dur 10] 10 meq PO DAILY 11/30/22 11/30/22 History Sennosides/Docusate Sodium [Senna 1 tab PO BID PRN 11/30/22 11/30/22 History Plus 8.6-50 mg Softgel] Allergies Allergy/AdvReac Type Severity Reaction Status Date / Time No Known Allergies Allergy Verified 11/30/22 22:08 Surgical - Exam Vital Signs Temp Pulse Resp BP Pulse Ox 101.9 F H 89 22 161/79 100 11/30/22 19:58 11/30/22 19:58 11/30/22 19:58 11/30/22 19:58 11/30/22 19:58 - General well developed, well nourished, no distress - Neck no masses, trachea midline - Respiratory normal respiratory effort - Abdomen Abdomen: soft, non tender, no guarding, no rigid, no rebound - Genitourinary normal penis with no external lesions, testicles non-tender - Psychiatric oriented to time, oriented to person, oriented to place, speech is normal, memory intact Results - Labs 12/03/22 05:47 12/03/22 05:47 Abnormal Lab Results - Last 24 Hours (Table) 12/02/22 12/02/22 Range/Units 05:54 05:54 RBC 3.73 L (4.40-5.60) X 10*6/uL Hgb 10.8 L (13.0-17.0) d/dL Hct 33.8 L (39.6-50.0) % Plt Count 110 L (140-440) X 10*3/uL Neutrophils # 8.12 H (1.80-7.70) X 10*3/uL Lymphocytes # 0.47 L (0.90-5.00) X 10*3/uL BUN/Creatinine Ratio 25.40 H (12.00-20.00) Ratio Calcium 8.4 L (8.7-10.3) mg/dL AST 47 H (14-35) U/L ALT <5 L (10-49) U/L Total Protein 5.0 L (6.2-8.2) d/dL Albumin 3.0 L (3.8-4.9) d/dL Albumin/Globulin Ratio 1.50 L (1.60-3.17) Ratio Microbiology - Last 24 Hours (Table) 11/30/22 22:36 Blood Culture - Preliminary Blood 11/30/22 22:21 Blood Culture - Preliminary Blood 12/01/22 12:15 Blood Culture - Preliminary Blood 11/30/22 20:42 Urine Culture - Preliminary Urine,Clean Catch Gram Neg Bacilli Diabetes panel 12/02/22 Range/Units 05:54 Sodium 138 (135-145) mmol/L Potassium 4.1 (3.5-5.5) mmol/L Chloride 105 (96-109) mmol/L Carbon Dioxide 24.0 (21.6-31.8) mmol/L BUN 25.4 (9.0-27.0) mg/dL Creatinine 1.0 (0.6-1.5) mg/dL Glucose 104 (70-110) mg/dL Calcium 8.4 L (8.7-10.3) mg/dL AST 47 H (14-35) U/L ALT <5 L (10-49) U/L Alkaline Phosphatase 73 (41-126) U/L Total Protein 5.0 L (6.2-8.2) d/dL Albumin 3.0 L (3.8-4.9) d/dL Calcium panel 12/02/22 Range/Units 05:54 Calcium 8.4 L (8.7-10.3) mg/dL Albumin 3.0 L (3.8-4.9) d/dL Pituitary panel 12/02/22 Range/Units 05:54 Sodium 138 (135-145) mmol/L Potassium 4.1 (3.5-5.5) mmol/L Chloride 105 (96-109) mmol/L Carbon Dioxide 24.0 (21.6-31.8) mmol/L BUN 25.4 (9.0-27.0) mg/dL Creatinine 1.0 (0.6-1.5) mg/dL Glucose 104 (70-110) mg/dL Calcium 8.4 L (8.7-10.3) mg/dL Adrenal panel 12/02/22 Range/Units 05:54 Sodium 138 (135-145) mmol/L Potassium 4.1 (3.5-5.5) mmol/L Chloride 105 (96-109) mmol/L Carbon Dioxide 24.0 (21.6-31.8) mmol/L BUN 25.4 (9.0-27.0) mg/dL Creatinine 1.0 (0.6-1.5) mg/dL Glucose 104 (70-110) mg/dL Calcium 8.4 L (8.7-10.3) mg/dL Total Bilirubin 0.3 (0.3-1.2) mg/dL AST 47 H (14-35) U/L ALT <5 L (10-49) U/L Alkaline Phosphatase 73 (41-126) U/L Total Protein 5.0 L (6.2-8.2) d/dL Albumin 3.0 L (3.8-4.9) d/dL - Imaging CT scan - abdomen: report reviewed, image reviewed Assessment and Plan (1) Hydronephrosis with renal and ureteral calculous obstruction Current Visit: Yes Status: Acute Code(s): N13.2 - HYDRONEPHROSIS WITH RENAL AND URETERAL CALCULOUS OBSTRUCTION SNOMED Code(s): 318538741 (2) Calculus of ureter Current Visit: Yes Status: Acute Code(s): N20.1 - CALCULUS OF URETER SNOMED Code(s): 80377177 (3) Urinary tract infection Current Visit: Yes Status: Acute Code(s): N39.0 - URINARY TRACT INFECTION, SITE NOT SPECIFIED SNOMED Code(s): 20501585 Plan: I had a lengthy discussion with the patient regarding his UTI and right proximal ureteral calculus. He was advised that the calculus has a 60-75% chance of passing. The combination of a UTI and an obstructing ureteral calculus can be problematic, and I discussed stent placement in detail with the patient. However, he is currently afebrile and his leukocytosis has resolved. His discomfort is minimal, and he has elected to forego stent placement unless he develops fever or intractable symptoms. He will be treated with tamsulosin, and his urine will be strained. He will be followed closely upon discharge, and as stated will undergo intervention if he develops intractable symptoms. Time with Patient: Greater than 30
[2022-12-04 07:25] VITALS: BP 143/67; PULSE 85; RESP 19; TEMP 98.6
[2022-12-04] MEDS: ATORVASTATIN 20 MG TAB PO SCH (08:22)
[2022-12-04] MEDS: CHOLECALCIFEROL 125 MCG (5000 IU) TABLET PO SCH (08:22)
[2022-12-04] MEDS: FAMOTIDINE 20 MG TAB PO SCH (08:22)
[2022-12-04] MEDS: FINASTERIDE 5 MG TAB PO SCH (08:22)
[2022-12-04] MEDS: TAMSULOSIN 0.4 MG CAP.ER.24H PO SCH (08:22)
[2022-12-04] MEDS: CIPROFLOXACIN HCL 500 MG TAB PO SCH (08:22)
[2022-12-04] MEDS: ENOXAPARIN 40 MG/0.4 ML SYRINGE SQ SCH (08:22)
[2022-12-04] MEDS: POTASSIUM CHLORIDE ER 10 MEQ TAB.ER.PRT PO SCH (08:22)
[2022-12-04] MEDS: LOSARTAN 25 MG TAB PO SCH (08:22)
[2022-12-04] MEDS: FUROSEMIDE 20 MG TAB PO SCH (08:22)
[2022-12-04] MEDS: ASPIRIN 81 MG PO SCH (08:23)
[2022-12-04] MEDS: DULoxetine HCL 20 MG CAPSULE.DR PO SCH (08:23)
[2022-12-04] MEDS: PROPRANOLOL 20 MG TAB PO SCH (08:23)
[2022-12-04] MEDS: methocarbamoL 500 MG TAB PO SCH (08:23)
[2022-12-04] MEDS: FOLIC ACID-VIT B COMPLEX-VIT C 1 CAP PO SCH (08:23)
[2022-12-04] MEDS: GABAPENTIN 300 MG CAP PO PRN (11:07)
--- NOTE | 2022-12-04 12:27 | P.PN ---
Subjective Progress Note Date: 12/03/22 Principal diagnosis: sepsis/UTI Patient is a 77-year-old male with a past medical history Nupercaine for hypertension hyperlipidemia BPH presenting to the hospital for evaluation of generalized weakness patient symptom has been going on for the last few days, patient work-up which was a positive UA he did have a CT of abdominal pelvis mild right hydronephrosis secondary to 3 mm calculus at the proximal ureteral pelvic junction. On today's evaluation that is 12/03/2022, the patient remains to be afebrile, the patient is breathing comfortably on room air without the need for supplemental oxygen and no shortness of breath, the patient denies having any chest pain or cough, patient denies nausea/vomiting /diarrhea and no abdominal pain, Patient white count 5.92, creatinine is 0.9 urine culture did grew drug- resistant Pseudomonas but sensitive to Cipro Objective - Vital Signs Vital signs: Vital Signs Temp 97.4 F L 12/03/22 14:00 Pulse 56 L 12/03/22 14:00 Resp 16 12/03/22 14:00 BP 132/64 12/03/22 14:00 Pulse Ox 98 12/03/22 14:00 FiO2 Intake & Output 12/02/22 12/03/22 12/03/22 18:59 06:59 18:59 Intake Total 200 Balance 200 Intake: Oral 200 Other: Voiding Method Bedside Commode Bedside Commode Bedside Commode # Voids 1 1 2 # Bowel Movements 1 1 - Exam GENERAL DESCRIPTION: Elderly male lying in bed in no distress RESPIRATORY SYSTEM: Unlabored breathing , decreased breath sounds at bases HEART: S1 S2 regular rate and rhythm ,no loud murmurs ABDOMEN: Soft , no tenderness EXTREMITIES: No edema feet - Labs CBC & Chem 7: 12/03/22 05:47 12/03/22 05:47 Labs: Abnormal Lab Results - Last 24 Hours (Table) 12/03/22 12/03/22 Range/Units 05:47 05:47 RBC 3.78 L (4.40-5.60) X 10*6/uL Hgb 10.8 L (13.0-17.0) d/dL Hct 34.7 L (39.6-50.0) % MCHC 31.1 L (32.0-37.0) d/dL Plt Count 122 L (140-440) X 10*3/uL Lymphocytes # 0.88 L (0.90-5.00) X 10*3/uL BUN/Creatinine Ratio 22.00 H (12.00-20.00) Ratio Calcium 8.5 L (8.7-10.3) mg/dL Total Bilirubin 0.2 L (0.3-1.2) mg/dL AST 42 H (14-35) U/L ALT 5 L (10-49) U/L Total Protein 5.3 L (6.2-8.2) d/dL Albumin 3.1 L (3.8-4.9) d/dL Albumin/Globulin Ratio 1.41 L (1.60-3.17) Ratio Microbiology - Last 24 Hours (Table) 11/30/22 20:42 Urine Culture - Final Urine,Clean Catch Pseudomonas aeruginosa 11/30/22 22:36 Blood Culture - Preliminary Blood 11/30/22 22:21 Blood Culture - Preliminary Blood 12/01/22 12:15 Blood Culture - Preliminary Blood Assessment and Plan (1) Sepsis Current Visit: Yes Status: Acute Code(s): A41.9 - SEPSIS, UNSPECIFIED ORGANISM SNOMED Code(s): 89788933 (2) Hydronephrosis Current Visit: Yes Status: Acute Code(s): N13.30 - UNSPECIFIED HYDRONEPHROSIS SNOMED Code(s): 13072614 (3) Urinary tract infection Current Visit: Yes Status: Acute Code(s): N39.0 - URINARY TRACT INFECTION, SITE NOT SPECIFIED SNOMED Code(s): 74151154 Plan: 1patient presented to hospital with sepsis in this patient with a fever elevated white count elevated lactic acid and positive UA likely urinary source patient was noticed to be tender on the right side with concern for possible right-sided pyelonephritis versus other intra-abdominal pathology 2CT abdominal pelvis with mild right-sided hydronephrosis secondary 3 mm stone urine urology recommending no stranding at this point 3Rocephin has been discontinued patient be started on Cipro and will monitor clinical course closely Dictation was produced using [employer] software. please excuse any grammatical, word or spelling errors.
[2022-12-04] MEDS: SODIUM CHLORIDE 0.9% 500 ML 500 ML IV SCH (12:28)
--- NOTE | 2022-12-04 12:28 | P.PN ---
Subjective Progress Note Date: 12/04/22 Principal diagnosis: sepsis/UTI Patient is a 77-year-old male with a past medical history Nupercaine for hypertension hyperlipidemia BPH presenting to the hospital for evaluation of generalized weakness patient symptom has been going on for the last few days, patient work-up which was a positive UA he did have a CT of abdominal pelvis mild right hydronephrosis secondary to 3 mm calculus at the proximal ureteral pelvic junction. On today's evaluation that is 12/04/2022, the patient continues to be afebrile the patient is breathing comfortably on room air, the patient denies chest pain, shortness of breath or cough, patient denies abdominal pain, no nausea/vomiting and no diarrhea Patient white count 5.92, creatinine is 0.9 as of yesterday urine culture did grew drug-resistant Pseudomonas but sensitive to Cipro Objective - Vital Signs Vital signs: Vital Signs Temp 98.6 F 12/04/22 07:25 Pulse 85 12/04/22 07:25 Resp 19 12/04/22 07:25 BP 143/67 12/04/22 07:25 Pulse Ox 96 12/04/22 07:25 FiO2 Intake & Output 12/03/22 12/04/22 12/04/22 18:59 06:59 18:59 Intake Total 200 Balance 200 Intake: Oral 200 Other: Voiding Method Bedside Commode Bedside Commode # Voids 2 7 # Bowel Movements 1 - Exam GENERAL DESCRIPTION: Elderly male lying in bed in no distress RESPIRATORY SYSTEM: Unlabored breathing , decreased breath sounds at bases HEART: S1 S2 regular rate and rhythm ,no loud murmurs ABDOMEN: Soft , no tenderness EXTREMITIES: No edema feet - Labs CBC & Chem 7: 12/03/22 05:47 12/03/22 05:47 Labs: Microbiology - Last 24 Hours (Table) 11/30/22 22:36 Blood Culture - Preliminary Blood 11/30/22 22:21 Blood Culture - Preliminary Blood 12/01/22 12:15 Blood Culture - Preliminary Blood 11/30/22 20:42 Urine Culture - Final Urine,Clean Catch Pseudomonas aeruginosa Assessment and Plan (1) Sepsis Current Visit: Yes Status: Acute Code(s): A41.9 - SEPSIS, UNSPECIFIED [facility] SNOMED Code(s): 64901014 (2) Hydronephrosis Current Visit: Yes Status: Acute Code(s): N13.30 - UNSPECIFIED HYDRONEPHROSIS SNOMED Code(s): 25274724 (3) Urinary tract infection Current Visit: Yes Status: Acute Code(s): N39.0 - URINARY TRACT INFECTION, SITE NOT SPECIFIED SNOMED Code(s): 10197719 Plan: 1patient presented to hospital with sepsis in this patient with a fever elevated white count elevated lactic acid and positive UA likely urinary source patient was noticed to be tender on the right side with concern for possible right-sided pyelonephritis versus other intra-abdominal pathology 2CT abdominal pelvis with mild right-sided hydronephrosis secondary 3 mm stone urine urology recommending no stranding at this point 3patient seemed to showing clinical improvement and will continue with Cipro 10 days on discharge with close outpatient follow-up Dictation was produced using [employer] dictation software. please excuse any grammatical, word or spelling errors. Time with Patient: Less than 30
--- NOTE | 2022-12-04 19:36 | P.PN ---
Subjective Progress Note Date: 12/04/22 Principal diagnosis: UTI, right ureteral calculus The patient remains afebrile. He reports mild right lower back/hip discomfort. Objective - Vital Signs Vital signs: Vital Signs Temp 98.1 F 12/04/22 00:49 Pulse 55 L 12/04/22 00:49 Resp 16 12/04/22 00:49 BP 119/56 12/04/22 00:49 Pulse Ox 96 12/04/22 00:49 FiO2 Intake & Output 12/03/22 12/03/22 12/04/22 06:59 18:59 06:59 Intake Total 200 Balance 200 Intake: Oral 200 Other: Voiding Method Bedside Commode Bedside Commode Bedside Commode # Voids 1 2 7 # Bowel Movements 1 - Constitutional General appearance: Present: average body habitus, no acute distress - Psychiatric Psychiatric: Present: A&O x's 3 - Labs CBC & Chem 7: 12/03/22 05:47 12/03/22 05:47 Labs: Abnormal Lab Results - Last 24 Hours (Table) 12/03/22 12/03/22 Range/Units 05:47 05:47 RBC 3.78 L (4.40-5.60) X 10*6/uL Hgb 10.8 L (13.0-17.0) d/dL Hct 34.7 L (39.6-50.0) % MCHC 31.1 L (32.0-37.0) d/dL Plt Count 122 L (140-440) X 10*3/uL Lymphocytes # 0.88 L (0.90-5.00) X 10*3/uL BUN/Creatinine Ratio 22.00 H (12.00-20.00) Ratio Calcium 8.5 L (8.7-10.3) mg/dL Total Bilirubin 0.2 L (0.3-1.2) mg/dL AST 42 H (14-35) U/L ALT 5 L (10-49) U/L Total Protein 5.3 L (6.2-8.2) d/dL Albumin 3.1 L (3.8-4.9) d/dL Albumin/Globulin Ratio 1.41 L (1.60-3.17) Ratio Microbiology - Last 24 Hours (Table) 11/30/22 22:36 Blood Culture - Preliminary Blood 11/30/22 22:21 Blood Culture - Preliminary Blood 12/01/22 12:15 Blood Culture - Preliminary Blood 11/30/22 20:42 Urine Culture - Final Urine,Clean Catch Pseudomonas aeruginosa Assessment and Plan Assessment: Urine culture shows greater than 100,000 Pseudomonas aeruginosa species, sensitive to quinolones. Blood cultures show no growth at 48-72 hours. (1) Hydronephrosis with renal and ureteral calculous obstruction Status: Acute Code(s): N13.2 - HYDRONEPHROSIS WITH RENAL AND URETERAL CALCULOUS OBSTRUCTION SNOMED Code(s): 119578979 (2) Calculus of ureter Status: Acute Code(s): N20.1 - CALCULUS OF URETER SNOMED Code(s): 32175913 (3) Urinary tract infection Status: Acute Code(s): N39.0 - URINARY TRACT INFECTION, SITE NOT SPECIFIED SNOMED Code(s): 30977989 Plan: I had a lengthy discussion with the patient regarding his UTI and right proximal ureteral calculus. He will be discharged home today on oral ciprofloxacin, as well as tamsulosin. He has been instructed to strain his urine. He will follow up with me in 2 weeks as an outpatient. He will undergo intervention if he develops intractable symptoms.
== END 2022-12-04 14:07 | disposition home health service (06) | DRG 871 ==
LOC: EC 19:57 → 4SSUR 12-01 00:51
PROVIDERS: ADMIT Internal Medicine; ATTEND Internal Medicine
DX: A41.52 Sepsis due to Pseudomonas (principal); I50.33 Acute on chronic diastolic (congestive) heart failure; E87.20 Acidosis, unspecified; E44.1 Mild protein-calorie malnutrition; N13.6 Pyonephrosis; I08.1 Rheumatic disorders of both mitral and tricuspid valves; Z20.822 Contact with and (suspected) exposure to COVID-19; I11.0 Hypertensive heart disease with heart failure; R53.1 Weakness; I95.9 Hypotension, unspecified; E78.2 Mixed hyperlipidemia; G20.A1 Parkinson's disease without dyskinesia, without mention of fluctuations; M47.816 Spondylosis without myelopathy or radiculopathy, lumbar region; F32.A Depression, unspecified; G62.9 Polyneuropathy, unspecified; E55.9 Vitamin D deficiency, unspecified; N40.0 Benign prostatic hyperplasia without lower urinary tract symptoms; R53.81 Other malaise; F41.9 Anxiety disorder, unspecified; Z79.82 Long term (current) use of aspirin; Z79.899 Other long term (current) drug therapy; G89.29 Other chronic pain; Z82.49 Family history of ischemic heart disease and other diseases of the circulatory system; Z87.891 Personal history of nicotine dependence; Z98.42 Cataract extraction status, left eye; Z98.41 Cataract extraction status, right eye; Z87.19 Personal history of other diseases of the digestive system
CPT/HCPCS: 36415; 71046; 74177; 80053; 81001; 83605; 83735; 83880; 84443; 84484; 85025; 85610; 85730; 87040; 87077; 87086; 87186; 87635; 93005; 93306

== ENCOUNTER 2022-12-07 16:06 | Inpatient (IN) | payer MEDICARE ==
[2022-12-07] MEDS ORDERED: SODIUM CHLORIDE 0.9% 1,000 ML IV STA (16:32)
--- NOTE | 2022-12-07 16:59 | ED ---
General Adult HPI - General Chief complaint: Urogenital Stated complaint: Urinary issues Time Seen by Provider: 12/07/22 16:13 Source: patient, EMS, RN notes reviewed, old records reviewed Mode of arrival: EMS Limitations: no limitations - History of Present Illness Initial comments: Patient is a 77-year-old male with past medical history remarkable for Parkinson's, recently diagnosed UTI as well as right-sided kidney stone, hypertension, hyperlipidemia, chronic lower extremity weakness secondary to back surgery who presents emergency Department after an episode of being unresponsive at home. No known trauma. Patient was sitting up when he became suddenly unresponsive. They checked his blood pressure was low but is since recovered. Was sent here after home nursing recommended. Endorse some nausea at that time but currently denies any. Denies any abdominal pain, flank pain. Denies any chest pain or shortness breath. No confusion. No new weakness or anything. Presents for further evaluation at this time. Denies any chest pain, fevers, cough. - Related Data Home Medications Medication Instructions Recorded Confirmed Atorvastatin [Lipitor] 20 mg PO DAILY 09/12/15 12/07/22 Finasteride [Proscar] 5 mg PO DAILY 09/12/15 12/07/22 Aspirin [Adult Low Dose Aspirin EC] 81 mg PO DAILY 09/20/15 12/07/22 Furosemide [Lasix] 20 mg PO DAILY 10/24/17 12/07/22 Losartan [Cozaar] 25 mg PO DAILY 10/24/17 12/07/22 B Complex-Vit C-Vit E-Zinc [Z-Bec] 1 tab PO DAILY 03/22/22 12/07/22 Cholecalciferol (Vitamin D3) 125 mcg PO DAILY 03/22/22 12/07/22 [Vitamin D3 (125 MCG = 5,000 IU)] DULoxetine HCL 20 mg PO DAILY 03/22/22 12/07/22 LORazepam 0.5 mg PO HS PRN 03/22/22 12/07/22 Propranolol [Inderal] 20 mg PO BID 03/22/22 12/07/22 methocarbamoL 500 mg PO BID 03/22/22 12/07/22 Carbidopa-Levodopa 25-100 mg 2 tab PO Q6H 11/30/22 12/07/22 [Sinemet 25-100 mg] Gabapentin [Neurontin] 300 mg PO DAILY PRN 11/30/22 12/07/22 Potassium Chloride ER [K-Dur 10] 10 meq PO DAILY 11/30/22 12/07/22 Sennosides/Docusate Sodium [Senna 1 tab PO BID PRN 11/30/22 12/07/22 Plus 8.6-50 mg Softgel] Previous Rx's Medication Instructions Recorded Ciprofloxacin HCl [Cipro] 500 mg PO BID #14 tab 12/04/22 Tamsulosin [Flomax] 0.4 mg PO PC-BRKFST #30 cap 12/04/22 Allergies Allergy/AdvReac Type Severity Reaction Status Date / Time No Known Allergies Allergy Verified 12/07/22 22:59 Review of Systems ROS Statement: Those systems with pertinent positive or pertinent negative responses have been documented in the HPI. Review of Systems: CONST: Denies fever EYES: Denies blurry vision ENT: Denies nasal congestion C/V: Denies Chest pain RESP: Denies shortness of breath GI: Denies abdominal pain : Denies dysuria SKIN: Denies rash. MSK: Denies joint pain. NEURO: Denies headache ROS Other: All systems not noted in ROS Statement are negative. Past Medical History Past Medical History: Hyperlipidemia, Hypertension, Neurologic Disorder, Prostate Disorder Additional Past Medical History / Comment(s): pain lower back and martin legs, intermittent lower leg swelling, elevated PSA, parkinsons disease, occasional tremors History of Any Multi-Drug Resistant Organisms: None Reported Past Surgical History: Back Surgery, Heart Catheterization, Hernia Repair Additional Past Surgical History / Comment(s): back surgeries x4, for spinal stenosis and excess scar tissue, martin cataract removed Past Anesthesia/Blood Transfusion Reactions: Motion Sickness, Postoperative Nausea & Vomiting (PONV) Past Psychological History: Anxiety Smoking Status: Former smoker Past Alcohol Use History: None Reported Past Drug Use History: None Reported - Past Family History Brother(s) Family Medical History: Cancer Additional Family Medical History / Comment(s): breast General Exam - General Exam Comments Initial Comments: General: Appears in no acute distress. HEAD: Normal with no signs of head trauma. EYES: PERRLA, EOMI, conjunctiva normal, no discharge. Pupils are 2 mm equal bilaterally. ENT: Hearing grossly intact, normal oropharynx. RESPIRATORY: Clear breath sounds bilaterally. No wheezes, rales, or rhonchi. C/V: Regular rate and rhythm. S1 and S2 auscultated, mild bilateral lower extremity pitting edema, peripheral pulses 2+ and intact throughout ABD: Abd is soft, nontender, nondistended EXT: Normal range of motion, no obvious deformity SKIN: No rashes or lesions observed on exposed skin. NEURO: Alert and oriented x 4. Cranial nerves II-XII intact. No focal sensory or strength deficits. Limitations: no limitations Course Vital Signs 12/07/22 16:08 Temperature 98.4 F Pulse Rate 54 L Respiratory 20 Rate Blood Pressure 101/57 O2 Sat by Pulse 95 Oximetry Medical Decision Making - Medical Decision Making Was pt. sent in by a medical professional or institution (, PA, CIGARETTE VENDOR, urgent care, hospital, or half-way...) When possible be specific @ -Sent in by home nursing Did you speak to anyone other than the patient for history (EMS, parent, family, police, friend...)? What history was obtained from this source @ -No Did you review nursing and triage notes (agree or disagree)? Why? @ -I reviewed and agree with nursing and triage notes Were old charts reviewed (outside hosp., previous admission, EMS record, old EKG, old radiological studies, urgent care reports/EKG's, half-way records)? Report findings @ -Old charts reviewed Differential Diagnosis (chest pain, altered mental status, abdominal pain women, abdominal pain men, vaginal bleeding, weakness, fever, dyspnea, syncope, headache, dizziness, GI bleed, back pain, seizure, CVA, palpatations, mental health, musculoskeletal)? @ -Differential Weakness: Hypoglycemia, shock, sepsis, hyponatremia, anemia, infection, MD, ETOH, adverse medicine reaction, overdose, stroke, this is not meant to be an all-inclusive list. EKG interpreted by me (3pts min.). @ -As above X-rays interpreted by me (1pt min.). @ -Chest x-ray, pelvis x-ray negative for any obvious acute injury or process. CT interpreted by me (1pt min.). @ -CT brain reveals no acute intracranial process. Chronic findings. U/S interpreted by me (1pt. min.). @ -Of some bladder, kidneys negative for any obvious acute process or obstructive uropathy. They do see if the lesion on the right kidney once again which is seen on prior imaging. What testing was considered but not performed or refused? (CT, X-rays, U/S, labs)? Why? @ -Considered CT and pelvis but as he just recently had a CT abdomen and pelvis we will first attempt to evaluate bladder and kidneys with ultrasound as he does have a known stone. What meds were considered but not given or refused? Why? @ -None Did you discuss the management of the patient with other professionals (professionals i.e. DrNichole, PA, CIGARETTE VENDOR, lab, RT, psych nurse, hospital social worker, general labor forklift operator, teacher, security public safety officer, caseworker protective services)? Give summary @ -Dr. Thomas will be notified of the admission. Was smoking cessation discussed for >3mins.? @ -No Was critical care preformed (if so, how long)? @ -No Were there social determinants of health that impacted care today? How? (Homelessness, low income, unemployed, alcoholism, drug addiction, t ransportation, low edu. Level, literacy, decrease access to med. care, residential, rehab)? @ -No Was there de-escalation of care discussed even if they declined (Discuss DNR or withdrawal of care, Hospice)? DNR status @ -No What co-morbidities impacted this encounter? (DM, HTN, Smoking, COPD, CAD, Cancer, CVA, ARF, Chemo, Hep., AIDS, mental health diagnosis, sleep apnea, morbid obesity)? @ -None Was patient admitted / discharged? Hospital course, mention meds given and route, prescriptions, significant lab abnormalities, going to OR and other pertinent info. @ -Based on the patient's presentation and physical exam, appears the patient had some form of syncopal episode at home 1 time prior to arrival but has since been asymptomatic. He has been getting treatment for UTI recently. Is chronically weak. No known trauma. We will obtain generalized syncopal workup and weakness workup. Patient agreement with this plan. Vital signs within acceptable limits. Patient will be given a 1 L fluid bolus. Patient's imaging unremarkable. There was a long delay in obtaining IV access and labs. Laboratory studies returned within acceptable limits. No abnormaliti es. On reevaluation, patient is feeling well. Vital signs within acceptable limits. I did discuss and offer admission for the patient. He likely did discuss the case with Dr. Thomas. We attempted to contact Dr. Thomas multiple times with no response. I checked on the patient again is asking for observation admission at this time as she is elderly, lives at home with his elderly , and is a fall risk. I believe this is reasonable. Patient will be made an observation admission for weakness. We will notify Dr. Thomas of the admission. Undiagnosed new problem with uncertain prognosis? @ -No Drug Therapy requiring intensive monitoring for toxicity (Heparin, Nitro, Insulin, Cardizem)? @ -No Were any procedures done? @ -No Diagnosis/symptom? @ -Weakness, syncope Acute, or Chronic, or Acute on Chronic? @ -Acute Uncomplicated (without systemic symptoms) or Complicated (systemic symptoms)? @ -Complicated Side effects of treatment? @ -none Exacerbation, Progression, or Severe Exacerbation] @ -no Poses a threat to life or bodily function? @ -Unlikely - Lab Data Result diagrams: 12/07/22 19:21 12/07/22 19:21 Lab Results 12/07/22 12/07/22 12/07/22 Range/Units 19:21 19:21 19:21 WBC 10.8 H (3.8-10.6) k/uL RBC 4.17 L (4.30-5.90) m/uL Hgb 12.1 L (13.0-17.5) gm/dL Hct 38.1 L (39.0-53.0) % MCV 91.2 (80.0-100.0) fL MCH 29.0 (25.0-35.0) pg MCHC 31.8 (31.0-37.0) g/dL RDW 13.8 (11.5-15.5) % Plt Count 203 (150-450) k/uL MPV 8.5 Neutrophils % 82 % Lymphocytes % 10 % Monocytes % 6 % Eosinophils % 1 % Basophils % 0 % Neutrophils # 8.8 H (1.3-7.7) k/uL Lymphocytes # 1.1 (1.0-4.8) k/uL Monocytes # 0.6 (0-1.0) k/uL Eosinophils # 0.1 (0-0.7) k/uL Basophils # 0.0 (0-0.2) k/uL Hypochromasia Slight PT (10.0-12.5) sec INR (<1.2) APTT (22.0-30.0) sec Sodium 138 (137-145) mmol/L Potassium 4.6 (3.5-5.1) mmol/L Chloride 105 (98-107) mmol/L Carbon Dioxide 25 (22-30) mmol/L Anion Gap 8 mmol/L BUN 26 H (9-20) mg/dL Creatinine 0.80 (0.66-1.25) mg/dL Est GFR (CKD-EPI)AfAm >90 (>60 ml/min/1.73 sqM) Est GFR (CKD-EPI)NonAf 85 (>60 ml/min/1.73 sqM) Glucose 99 (74-99) mg/dL Plasma Lactic Acid Darshan (0.7-2.0) mmol/L Calcium 8.4 (8.4-10.2) mg/dL Magnesium 2.1 (1.6-2.3) mg/dL Total Bilirubin 0.7 (0.2-1.3) mg/dL AST 58 (17-59) U/L ALT 10 (4-49) U/L Alkaline Phosphatase 79 (38-126) U/L Total Protein 6.2 L (6.3-8.2) g/dL Albumin 3.4 L (3.5-5.0) g/dL Urine Color Yellow Urine Appearance Clear (Clear) Urine pH 5.5 (5.0-8.0) Ur Specific [place] 1.015 (1.001-1.035) Urine Protein Negative (Negative) Urine Glucose (UA) Negative (Negative) Urine Ketones Negative (Negative) Urine Blood Negative (Negative) Urine Nitrite Negative (Negative) Urine Bilirubin Negative (Negative) Urine Urobilinogen <2.0 (<2.0) mg/dL Ur Leukocyte Esterase Negative (Negative) Influenza Type A (PCR) (Not Detectd) Influenza Type B (PCR) (Not Detectd) RSV (PCR) (Not Detectd) SARS-CoV-2 (PCR) (Not Detectd) 12/07/22 12/07/22 12/07/22 Range/Units 19:21 19:21 21:13 WBC (3.8-10.6) k/uL RBC (4.30-5.90) m/uL Hgb (13.0-17.5) gm/dL Hct (39.0-53.0) % MCV (80.0-100.0) fL MCH (25.0-35.0) pg MCHC (31.0-37.0) g/dL RDW (11.5-15.5) % Plt Count (150-450) k/uL MPV Neutrophils % % Lymphocytes % % Monocytes % % Eosinophils % % Basophils % % Neutrophils # (1.3-7.7) k/uL Lymphocytes # (1.0-4.8) k/uL Monocytes # (0-1.0) k/uL Eosinophils # (0-0.7) k/uL Basophils # (0-0.2) k/uL Hypochromasia PT 10.2 (10.0-12.5) sec INR 0.9 (<1.2) APTT 21.3 L (22.0-30.0) sec Sodium (137-145) mmol/L Potassium (3.5-5.1) mmol/L Chloride (98-107) mmol/L Carbon Dioxide (22-30) mmol/L Anion Gap mmol/L BUN (9-20) mg/dL Creatinine (0.66-1.25) mg/dL Est GFR (CKD-EPI)AfAm (>60 ml/min/1.73 sqM) Est GFR (CKD-EPI)NonAf (>60 ml/min/1.73 sqM) Glucose (74-99) mg/dL Plasma Lactic Acid Darshan 1.7 (0.7-2.0) mmol/L Calcium (8.4-10.2) mg/dL Magnesium (1.6-2.3) mg/dL Total Bilirubin (0.2-1.3) mg/dL AST (17-59) U/L ALT (4-49) U/L Alkaline Phosphatase (38-126) U/L Total Protein (6.3-8.2) g/dL Albumin (3.5-5.0) g/dL Urine Color Urine Appearance (Clear) Urine pH (5.0-8.0) Ur Specific [place] (1.001-1.035) Urine Protein (Negative) Urine Glucose (UA) (Negative) Urine Ketones (Negative) Urine Blood (Negative) Urine Nitrite (Negative) Urine Bilirubin (Negative) Urine Urobilinogen (<2.0) mg/dL Ur Leukocyte Esterase (Negative) Influenza Type A (PCR) Not Detected (Not Detectd) Influenza Type B (PCR) Not Detected (Not Detectd) RSV (PCR) Not Detected (Not Detectd) SARS-CoV-2 (PCR) Not Detected (Not Detectd) - EKG Data -: EKG Interpreted by Me EKG Comments: 12-lead Electrocardiogram Interpretation Note EKG was reviewed and interpreted by myself. 12-lead ECG performed at 2023 is interpreted by me as revealing normal sinus rhythm at a rate of 78 beats per minute. [place] is normal. ME interval is 160 ms, QRS durations 122 ms, QTc is 458 ms.. There were no ST or T wave abnormalities to suggest myocardial ischemia or injury. R wave progression across the precordium was satisfactory. By my interpretation this EKG is non-diagnostic for acute ischemia. Disposition Clinical Impression: Weakness, Syncope Disposition: ADMITTED IP TO THIS HOSP Condition: Stable Referrals: Linda Thomas MD [Primary Care Provider] - 1-2 days Time of Disposition: 22:50
--- NOTE | 2022-12-07 19:21 | XR ---
EXAMINATION TYPE: XR pelvis AP view DATE OF EXAM: 12/07/2022 6:54 PM CLINICAL INDICATION:Male, 77 years old with history of pain; H COMPARISON: None TECHNIQUE: The pelvis was examined in a single projection. FINDINGS: There is no evidence of fracture or dislocation. There is no soft tissue abnormality. No a bnormal calcifications are present. The spine appears intact. Oral contrast is seen within the rectum . Fixation changes to the lower spine appear intact. IMPRESSION: No acute osseous pathology.
--- NOTE | 2022-12-07 19:24 | XR ---
EXAMINATION TYPE: XR chest 2V DATE OF EXAM: 12/07/2022 6:54 PM CLINICAL INDICATION:Male, 77 years old with history of Weakness; COMPARISON: Chest radiographs from 11/30/2022 TECHNIQUE: XR chest 2V Frontal and lateral views of the chest. FINDINGS: Lungs/Pleura: There is flattening of the diaphragm with increased lucency of the lungs. No evidence o f pneumothorax, pleural effusion or focal consolidation. Pulmonary vascularity: Unremarkable. Heart/mediastinum: Cardiomediastinal silhouette is unremarkable. Musculoskeletal: No acute osseous pathology. IMPRESSION: 1. No acute cardiopulmonary disease process. 2. COPD changes.
--- NOTE | 2022-12-07 19:44 | CT ---
EXAMINATION TYPE: CT brain wo con CT DLP: 1118.4 mGycm, Automated exposure control for dose reduction was used. DATE OF EXAM: 12/07/2022 7:05 PM COMPARISON: None. CLINICAL INDICATION:Male, 77 years old with history of weakness, Weakness and dizziness. TECHNIQUE: Brain: Axial CT images of the brain were obtained with coronal and sagittal reformats created and rev iewed. Contrast used: None. Oral contrast used: None. FINDINGS: Brain: Extra-axial spaces: No abnormal extra-axial fluid collections. Ventricular system: Dilatation in proportion to cerebral atrophy. Cerebral parenchyma: Punctate left caudate nucleus remote injury suggested. Cerebral atrophy. No acut e intraparenchymal hemorrhage or mass effect. The hammond-white junction is well differentiated. Scatte red hypoattenuating areas are seen within the white matter. Cerebellum: Unremarkable. Mass effect: No evidence of midline shift. Intracranial vasculature: unremarkable Soft tissues: Normal. Calvarium/osseous structures: No depressed skull fracture. Paranasal sinuses and mastoid air cells: Mild scattered paranasal sinus disease. Visualized orbits: Orbital contents are intact. IMPRESSION: 1. No acute intracranial process. 2. Nonspecific white matter changes, likely secondary to chronic small vessel ischemic disease. 3. Punctate left caudate nucleus remote injury suggested
[2022-12-07 20:04] LABS: Basophils % (A) 0 %; Eosinophils # (A) 0.1 k/uL (0-0.7); Eosinophils % (A) 1 %; HCT 38.1 % (39.0-53.0); HGB 12.1 gm/dL (13.0-17.5); Hypochromasia Slight; Lymphocytes # (A) 1.1 k/uL (1.0-4.8); Lymphocytes % (A) 10 %; MCHC 31.8 g/dL (31.0-37.0); MCV 91.2 fL (80.0-100.0); Mean Platelet Volume 8.5; Monocytes # (A) 0.6 k/uL (0-1.0); Monocytes % (A) 6 %; Neutrophils # (A) 8.8 k/uL (1.3-7.7); Neutrophils % (A) 82 %; Platelet Count 203 k/uL (150-450); RBC 4.17 m/uL (4.30-5.90); RDW 13.8 % (11.5-15.5); WBC 10.8 k/uL (3.8-10.6)
[2022-12-07 20:06] LABS: Appearance,Urine Clear (Clear); Bilirubin,Urine Negative (Negative); Blood,Urine Negative (Negative); Color,Urine Yellow; Glucose,Urine (UA) Negative (Negative); Ketones,Urine Negative (Negative); Leukocyte Esterase,Urine Negative (Negative); Nitrite,Urine Negative (Negative); PH, Urine 5.5 (5.0-8.0); Protein,Urine Negative (Negative); Specific Gravity,Urine 1.015 (1.001-1.035); Urobilinogen,Urine <2.0 mg/dL (<2.0)
[2022-12-07 20:16] LABS: ALT 10 U/L (4-49); African American GFR (CKD) >90 (>60 ml/min/1.73 sqM); Albumin 3.4 g/dL (3.5-5.0); Anion Gap 8 mmol/L; Blood Urea Nitrogen 26 mg/dL (9-20); Calcium 8.4 mg/dL (8.4-10.2); Carbon Dioxide 25 mmol/L (22-30); Chloride 105 mmol/L (98-107); Glucose 99 mg/dL (74-99); Non-African American GFR(CKD) 85 (>60 ml/min/1.73 sqM); Sodium 138 mmol/L (137-145); Total Bilirubin 0.7 mg/dL (0.2-1.3); Total Protein 6.2 g/dL (6.3-8.2)
[2022-12-07] MEDS ORDERED: KETOROLAC 15 MG/ML 1 ML VIAL IVP STA (20:29)
[2022-12-07 20:30] LABS: AST 58 U/L (17-59); Alkaline Phosphatase 79 U/L (38-126); Magnesium 2.1 mg/dL (1.6-2.3); Potassium 4.6 mmol/L (3.5-5.1)
--- NOTE | 2022-12-07 21:32 | US ---
EXAMINATION TYPE: US kidneys/renal and bladder DATE OF EXAM: 12/07/2022 COMPARISON: CT 12/01/2022 CLINICAL INDICATION: Male, 77 years old with history of dysuria. eval for stone; renal stones noted 6 days ago, pt. may have passed the obstructing stone since last exam EXAM MEASUREMENTS: Right Kidney: 8.4x4.8x5.2 cm Left Kidney: 9.7 x 5.3 x 4.8 cm Right Kidney: solid lesion again seen from 2015: 2.9x3.1x2.3cm, small echogenic focus noted 0.3cm, ma y correspond to previously noted calculi or calcified vessels Left Kidney: wnl Bladder: wnl Bilateral Jets seen: Yes There is no evidence for hydronephrosis at this point in time. The urinary bladder is anechoic. Carl ateral ureteral jets are seen. exam limited by bowel and body habitus IMPRESSION: 1. Solid lesion in the right kidney is again seen which appears fluid density on CT imaging. MRI danis al mass protocol should be performed to completely characterize this lesion. 2. Nonobstructing left renal calculus. 3. No evidence for hydronephrosis.
[2022-12-07 21:40] LABS: INR 0.9 (<1.2); Partial Thromboplastin Time 21.3 sec (22.0-30.0); Prothrombin Time 10.2 sec (10.0-12.5)
[2022-12-07] MEDS ORDERED: NALOXONE 0.4 MG/ML 1 ML VIAL IV PRN (23:09)
[2022-12-07] MEDS ORDERED: ACETAMINOPHEN TAB 325 MG TAB PO PRN (23:09)
[2022-12-07] MEDS ORDERED: LORazepam 0.5 MG TAB PO PRN (23:13)
[2022-12-07] MEDS ORDERED: GABAPENTIN 300 MG CAP PO PRN (23:13)
[2022-12-07] MEDS: CARBIDOPA-LEVODOPA 25-100 MG 1 EACH TAB PO SCH (23:38)
[2022-12-08] MEDS: CARBIDOPA-LEVODOPA 25-100 MG 1 EACH TAB PO SCH ×4 (05:23→21:56)
[2022-12-08 08:49] LABS: Basophils % (A) 0 %; Eosinophils # (A) 0.2 k/uL (0-0.7); Eosinophils % (A) 2 %; HCT 32.5 % (39.0-53.0); HGB 10.2 gm/dL (13.0-17.5); Hypochromasia Slight; Lymphocytes # (A) 1.1 k/uL (1.0-4.8); Lymphocytes % (A) 14 %; MCHC 31.4 g/dL (31.0-37.0); MCV 92.1 fL (80.0-100.0); Mean Platelet Volume 8.1; Monocytes # (A) 0.5 k/uL (0-1.0); Monocytes % (A) 7 %; Neutrophils # (A) 5.9 k/uL (1.3-7.7); Neutrophils % (A) 76 %; Platelet Count 213 k/uL (150-450); RBC 3.53 m/uL (4.30-5.90); RDW 14.2 % (11.5-15.5); WBC 7.8 k/uL (3.8-10.6)
[2022-12-08 08:54] LABS: African American GFR (CKD) >90 (>60 ml/min/1.73 sqM); Anion Gap 4 mmol/L; Blood Urea Nitrogen 25 mg/dL (9-20); Calcium 7.9 mg/dL (8.4-10.2); Carbon Dioxide 26 mmol/L (22-30); Chloride 108 mmol/L (98-107); Glucose 100 mg/dL (74-99); Non-African American GFR(CKD) 82 (>60 ml/min/1.73 sqM); Potassium 4.3 mmol/L (3.5-5.1); Sodium 138 mmol/L (137-145)
[2022-12-08] MEDS ORDERED: FUROSEMIDE 20 MG TAB PO SCH (09:00)
[2022-12-08] MEDS: PROPRANOLOL 20 MG TAB PO SCH ×2 (09:24→20:47)
[2022-12-08] MEDS: POTASSIUM CHLORIDE ER 10 MEQ TAB.ER.PRT PO SCH (09:24)
[2022-12-08] MEDS: methocarbamoL 500 MG TAB PO SCH ×2 (09:24→20:47)
[2022-12-08] MEDS: ASPIRIN 81 MG PO SCH (09:24)
[2022-12-08] MEDS: TAMSULOSIN 0.4 MG CAP.ER.24H PO SCH (09:24)
[2022-12-08] MEDS: DULoxetine HCL 20 MG CAPSULE.DR PO SCH (09:24)
[2022-12-08] MEDS: CIPROFLOXACIN HCL 500 MG TAB PO SCH ×2 (09:25→20:47)
[2022-12-08] MEDS: ATORVASTATIN 20 MG TAB PO SCH (09:25)
[2022-12-08] MEDS: FINASTERIDE 5 MG TAB PO SCH (09:26)
[2022-12-08] MEDS: LOSARTAN 25 MG TAB PO SCH (09:26)
--- NOTE | 2022-12-08 09:57 | P.GSCN ---
History of Present Illness Consult date: 12/08/22 History of present illness: 77-year-old gentleman in the hospital weakness and syncope. He was in the hospital last week with ureteral calculus. He is seen by evaluate him for that. He was discharged home. He returned yesterday with weakness and syncope. He had an ultrasound that identified a 4 cm right renal mass of indeterminate etiology. The mass was seen on the computed tomography scan done a week ago. The Hounsfield units range from -2to 44. He is otherwise asymptomatic. He has no blood in the urine. He has no recurrent urine infections. He has no flank pain. There is no hydronephrosis on the ultrasound. Past Medical History Past Medical History: Hyperlipidemia, Hypertension, Neurologic Disorder, Prostate Disorder Additional Past Medical History / Comment(s): pain lower back and martin legs, intermittent lower leg swelling, elevated PSA, parkinsons disease, occasional tremors History of Any Multi-Drug Resistant Organisms: None Reported Past Surgical History: Back Surgery, Heart Catheterization, Hernia Repair Additional Past Surgical History / Comment(s): back surgeries x4, for spinal stenosis and excess scar tissue, martin cataract removed Past Anesthesia/Blood Transfusion Reactions: Motion Sickness, Postoperative Nausea & Vomiting (PONV) Past Psychological History: Anxiety Smoking Status: Former smoker Past Alcohol Use History: None Reported Additional Past Alcohol Use History / Comment(s): quit smoking 1988 after 25 years 1 02/19 ppd Past Drug Use History: None Reported - Past Family History Brother(s) Family Medical History: Cancer Additional Family Medical History / Comment(s): breast Medications and Allergies Home Medications Medication Instructions Recorded Confirmed Type Atorvastatin [Lipitor] 20 mg PO DAILY 09/12/15 12/07/22 History Finasteride [Proscar] 5 mg PO DAILY 09/12/15 12/07/22 History Aspirin [Adult Low Dose Aspirin EC] 81 mg PO DAILY 09/20/15 12/07/22 History Furosemide [Lasix] 20 mg PO DAILY 10/24/17 12/07/22 History Losartan [Cozaar] 25 mg PO DAILY 10/24/17 12/07/22 History B Complex-Vit C-Vit E-Zinc [Z-Bec] 1 tab PO DAILY 03/22/22 12/07/22 History Cholecalciferol (Vitamin D3) 125 mcg PO DAILY 03/22/22 12/07/22 History [Vitamin D3 (125 MCG = 5,000 IU)] DULoxetine HCL 20 mg PO DAILY 03/22/22 12/07/22 History LORazepam 0.5 mg PO HS PRN 03/22/22 12/07/22 History Propranolol [Inderal] 20 mg PO BID 03/22/22 12/07/22 History methocarbamoL 500 mg PO BID 03/22/22 12/07/22 History Carbidopa-Levodopa 25-100 mg 2 tab PO Q6H 11/30/22 12/07/22 History [Sinemet 25-100 mg] Gabapentin [Neurontin] 300 mg PO DAILY PRN 11/30/22 12/07/22 History Potassium Chloride ER [K-Dur 10] 10 meq PO DAILY 11/30/22 12/07/22 History Sennosides/Docusate Sodium [Senna 1 tab PO BID PRN 11/30/22 12/07/22 History Plus 8.6-50 mg Softgel] Ciprofloxacin HCl [Cipro] 500 mg PO BID #14 tab 12/04/22 12/07/22 Rx Tamsulosin [Flomax] 0.4 mg PO PC-BRKFST #30 cap 12/04/22 12/07/22 Rx Allergies Allergy/AdvReac Type Severity Reaction Status Date / Time No Known Allergies Allergy Verified 12/07/22 22:59 Surgical - Exam Vital Signs Temp Pulse Resp BP Pulse Ox 98.4 F 54 L 20 101/57 95 12/07/22 16:08 12/07/22 16:08 12/07/22 16:08 12/07/22 16:08 12/07/22 16:08 - General well developed, well nourished, no distress - Eyes normal ocular movement, no icteric - ENT no hearing loss, no congestion - Neck no masses, trachea midline - Respiratory normal respiratory effort, clear to auscultation - Abdomen Abdomen: soft, non tender, no guarding, no rigid, no rebound - Integumentary no rash, no abnormal pigmentation - Neurologic no disoriented, no combative - Psychiatric oriented to time, oriented to person, oriented to place, speech is normal, memory intact Results - Labs 12/08/22 06:58 12/08/22 06:58 Abnormal Lab Results - Last 24 Hours (Table) 1012/07/22 12/07/22 Range/Units 19:21 19:21 21:13 WBC 10.8 H (3.8-10.6) k/uL RBC 4.17 L (4.30-5.90) m/uL Hgb 12.1 L (13.0-17.5) gm/dL Hct 38.1 L (39.0-53.0) % Neutrophils # 8.8 H (1.3-7.7) k/uL APTT 21.3 L (22.0-30.0) sec Chloride (98-107) mmol/L BUN 26 H (9-20) mg/dL Glucose (74-99) mg/dL Calcium (8.4-10.2) mg/dL Total Protein 6.2 L (6.3-8.2) g/dL Albumin 3.4 L (3.5-5.0) g/dL 12/08/22 12/08/22 Range/Units 06:58 06:58 WBC (3.8-10.6) k/uL RBC 3.53 L (4.30-5.90) m/uL Hgb 10.2 L (13.0-17.5) gm/dL Hct 32.5 L (39.0-53.0) % Neutrophils # (1.3-7.7) k/uL APTT (22.0-30.0) sec Chloride 108 H (98-107) mmol/L BUN 25 H (9-20) mg/dL Glucose 100 H (74-99) mg/dL Calcium 7.9 L (8.4-10.2) mg/dL Total Protein (6.3-8.2) g/dL Albumin (3.5-5.0) g/dL Diabetes panel 12/07/22 12/08/22 Range/Units 19:21 06:58 Sodium 138 138 (137-145) mmol/L Potassium 4.6 4.3 (3.5-5.1) mmol/L Chloride 105 108 H (98-107) mmol/L Carbon Dioxide 25 26 (22-30) mmol/L BUN 26 H 25 H (9-20) mg/dL Creatinine 0.80 0.89 (0.66-1.25) mg/dL Glucose 99 100 H (74-99) mg/dL Calcium 8.4 7.9 L (8.4-10.2) mg/dL AST 58 (17-59) U/L ALT 10 (4-49) U/L Alkaline Phosphatase 79 (38-126) U/L Total Protein 6.2 L (6.3-8.2) g/dL Albumin 3.4 L (3.5-5.0) g/dL Calcium panel 12/07/22 12/08/22 Range/Units 19:21 06:58 Calcium 8.4 7.9 L (8.4-10.2) mg/dL Albumin 3.4 L (3.5-5.0) g/dL Pituitary panel 12/07/22 12/08/22 Range/Units 19:21 06:58 Sodium 138 138 (137-145) mmol/L Potassium 4.6 4.3 (3.5-5.1) mmol/L Chloride 105 108 H (98-107) mmol/L Carbon Dioxide 25 26 (22-30) mmol/L BUN 26 H 25 H (9-20) mg/dL Creatinine 0.80 0.89 (0.66-1.25) mg/dL Glucose 99 100 H (74-99) mg/dL Calcium 8.4 7.9 L (8.4-10.2) mg/dL Adrenal panel 12/07/22 12/08/22 Range/Units 19:21 06:58 Sodium 138 138 (137-145) mmol/L Potassium 4.6 4.3 (3.5-5.1) mmol/L Chloride 105 108 H (98-107) mmol/L Carbon Dioxide 25 26 (22-30) mmol/L BUN 26 H 25 H (9-20) mg/dL Creatinine 0.80 0.89 (0.66-1.25) mg/dL Glucose 99 100 H (74-99) mg/dL Calcium 8.4 7.9 L (8.4-10.2) mg/dL Total Bilirubin 0.7 (0.2-1.3) mg/dL AST 58 (17-59) U/L ALT 10 (4-49) U/L Alkaline Phosphatase 79 (38-126) U/L Total Protein 6.2 L (6.3-8.2) g/dL Albumin 3.4 L (3.5-5.0) g/dL - Imaging CT scan - abdomen: report reviewed, image reviewed CT scan - pelvis: report reviewed, image reviewed US - kidney/bladder: report reviewed, image reviewed Assessment and Plan Assessment: Impression: Right renal mass indeterminate etiology. Recent right ureteral calculus. Weakness and syncope. Medical comorbidities Recommendation: The patient will need a computed tomography scan with and without contrast on MRI with and without contrast to evaluate the mass. This can be done as an outpatient.
--- NOTE | 2022-12-08 10:17 | P.PN ---
Progress Note - Text Progress Note Date: 12/08/22 Upon further questioning this 77-year-old gentleman he stated that Dr Carvalho evaluated a renal mass of years ago and referred the patient to [facility] where the mass was reevaluated. Apparently it was considered nonmalignant and nothing further was done. I will review the chart in the office to clarify the status of the lesion at that time compared to present so as to determine whether further testing needs to be done.
--- NOTE | 2022-12-08 10:51 | US ---
EXAMINATION TYPE: US carotid duplex BILAT DATE OF EXAM: 12/08/2022 COMPARISON: NONE CLINICAL INDICATION: Male, 77 years old with history of Syncope; Syncope. Patient quit smoking in 198 9. Hx hypertension, hyperlipidemia. TECHNIQUE: Carotid duplex ultrasound examination. Indirect Doppler criteria was utilized. FINDINGS: EXAM MEASUREMENTS: RIGHT: Peak Systolic Velocity (PSV) cm/sec ----- Right CCA: 96.5 ----- Right ICA: 133.4 ----- Right ECA: 144.7 ICA/CCA ratio: 1.4 RIGHT: End Diastole cm/sec ----- Right CCA: 22.8 ----- Right ICA: 38.1 ----- Right ECA: 17.1 LEFT: Peak Systolic Velocity (PSV) cm/sec ----- Left CCA: 107.3 ----- Left ICA: 135.0 ----- Left ECA: 166.7 ICA/CCA ratio: 1.3 LEFT: End Diastole cm/sec ----- Left CCA: 25.9 ----- Left ICA: 30.0 ----- Left ECA: 22.9 VERTEBRALS (direction of flow): Right Vertebral: Antegrade Left Vertebral: Antegrade Rhythm: Normal TELECOMMUNICATIONS MANAGER NOTES: Plaque was seen within bilateral bulbs and right proximal ICA. Elevated velocities within right mid ICA, right ECA, left mid ICA, and left ECA. 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 1. Normal (no stenosis)=ICA PSV < 125 cm/s: ratio < 2.0: ICA EDV<40 cm/s. 2. Less than 50% stenosis=ICA PSV < 125 cm/s: ratio < 2.0: ICA EDV<40 cm/s. 3. 50 to 69% stenosis=ICA PSV of 125 to 230 cm/s: ration 2.0 ? 4.0: ICA EDV 40-100 cm/s. 4. Greater than 70% stenosis to near occlusion= ICA PSV > 230 cm/s: ratio > 4.0: ICA EDV > 100 cm/s. 5. Near occlusion= ICA PSV velocities may be low or undetectable: variable ratio and ICA EDV. 6. Total occlusion=unable to detect flow.
--- NOTE | 2022-12-08 13:07 | P.CRDCN ---
History of Present Illness Consult date: 12/08/22 History of present illness: HISTORY OF PRESENTING ILLNESS 77-year-old was recently hospitalized for generalized weakness and possible urinary tract infection. Last admission he was evaluated by cardiology. At that time echocardiogram showed a preserved LV systolic function with [id number] aortic regurgitation due to calcific aortic valve but no valvular stenosis. No other cardiac interventions were done at that time. Had a heart cath in 2018 which showed no significant obstructive coronary artery disease This time he presented to the hospital because of concerns of syncope. He was being evaluated by his home care nurse when he passed out for less than 2 minutes while sitting in a chair talking to his nurse. Lasting remember was talking to his nurse before passing out. The first thing he remembered after waking up was his nurse trying to wake him up. He denies having any chest pain chest pressure shortness of breath during that event. He denied any palpitations. Since then he has been feeling generalized weakness. His blood pressure has been fluctuant. Initial reading was 180/90, repeat reading was 110/70 He also has history of Parkinson's disease, essential tremor, hypertension, benign prostatic hypertrophy, renal mass His ECG shows sinus rhythm with no significant ST-T wave changes diagnostic for ischemia, nonspecific interventricular conduction delay. His telemetry does not show any arrhythmias over last 24 hours. Carotid Doppler showed 50-69% disease bilaterally REVIEW OF SYSTEMS 14 point review of system is negative except what is mentioned above in HPI. PHYSICAL EXAMINATION Vital signs reviewed. Head: Normocephalic. Eyes: Sclerae nonicteric. Neck: Brisk carotid upstroke, no jugular venous distention. Lungs: Clear to auscultation. Heart: Regular rate and rhythm, S1-S2, no S3, no murmur or rub. Abdomen: Soft nontender, positive bowel sounds no organomegaly. Extremities: 1+ pitting edema in bilateral ankles Neuro: Alert, oritented, no focal deficits ASSESSMENT Questionable syncope. Generalized weakness Parkinson's disease Hypertension Lower extremity edema, chronic BPH Essential tremors PLAN Patient's history is very limited but syncope is less concerning of cardiac etiology. No arrhythmias on ECG on telemetry. Echo did not show any significant stenotic valvular disease. There is mild to moderate aortic regurgitation. He does not have any chest pains or shortness of breath. No palpitations 1+ pitting edema in bilateral lower extremity which appears to be chronic. I feel that Lasix is not the appropriate treatment for this. I will discontinue his Lasix and would recommend compression stockings Obtain orthostatic vital signs Obtain bilateral cerebral Dopplers because of elevated d-dimer and concerns of possible PE and DVT Would recommend primary care physician to work him up for generalized weakness. Consider neurological evaluation Past Medical History Past Medical History: Hyperlipidemia, Hypertension, Neurologic Disorder, Prostate Disorder Additional Past Medical History / Comment(s): pain lower back and martin legs, intermittent lower leg swelling, elevated PSA, parkinsons disease, occasional tremors History of Any Multi-Drug Resistant Organisms: None Reported Past Surgical History: Back Surgery, Heart Catheterization, Hernia Repair Additional Past Surgical History / Comment(s): back surgeries x4, for spinal stenosis and excess scar tissue, martin cataract removed Past Anesthesia/Blood Transfusion Reactions: Motion Sickness, Postoperative Nausea & Vomiting (PONV) Past Psychological History: Anxiety Smoking Status: Former smoker Past Alcohol Use History: None Reported Additional Past Alcohol Use History / Comment(s): quit smoking 1988 after 25 years 1 1/2 ppd Past Drug Use History: None Reported - Past Family History Brother(s) Family Medical History: Cancer Additional Family Medical History / Comment(s): breast Medications and Allergies Home Medications Medication Instructions Recorded Confirmed Type Atorvastatin [Lipitor] 20 mg PO DAILY 09/12/15 12/07/22 History Finasteride [Proscar] 5 mg PO DAILY 09/12/15 12/07/22 History Aspirin [Adult Low Dose Aspirin EC] 81 mg PO DAILY 09/20/15 12/07/22 History Furosemide [Lasix] 20 mg PO DAILY 10/24/17 12/07/22 History Losartan [Cozaar] 25 mg PO DAILY 10/24/17 12/07/22 History B Complex-Vit C-Vit E-Zinc [Z-Bec] 1 tab PO DAILY 03/22/22 12/07/22 History Cholecalciferol (Vitamin D3) 125 mcg PO DAILY 03/22/22 12/07/22 History [Vitamin D3 (125 MCG = 5,000 IU)] DULoxetine HCL 20 mg PO DAILY 03/22/22 12/07/22 History LORazepam 0.5 mg PO HS PRN 03/22/22 12/07/22 History Propranolol [Inderal] 20 mg PO BID 03/22/22 12/07/22 History methocarbamoL 500 mg PO BID 03/22/22 12/07/22 History Carbidopa-Levodopa 25-100 mg 2 tab PO Q6H 11/30/22 12/07/22 History [Sinemet 25-100 mg] Gabapentin [Neurontin] 300 mg PO DAILY PRN 11/30/22 12/07/22 History Potassium Chloride ER [K-Dur 10] 10 meq PO DAILY 11/30/22 12/07/22 History Sennosides/Docusate Sodium [Senna 1 tab PO BID PRN 11/30/22 12/07/22 History Plus 8.6-50 mg Softgel] Ciprofloxacin HCl [Cipro] 500 mg PO BID #14 tab 12/04/22 12/07/22 Rx Tamsulosin [Flomax] 0.4 mg PO PC-BRKFST #30 cap 12/04/22 12/07/22 Rx Allergies Allergy/AdvReac Type Severity Reaction Status Date / Time No Known Allergies Allergy Verified 12/07/22 22:59 Physical Exam Vitals: Vital Signs Temp Pulse Pulse Resp BP BP Pulse Ox 12/08/22 10:23 95 12/08/22 08:00 98 F 76 18 113/55 95 12/08/22 03:18 98 F 78 16 110/67 98 12/08/22 00:08 98.9 F 85 16 180/81 97 12/07/22 23:38 87 18 155/71 97 12/07/22 16:08 98.4 F 54 L 20 101/57 95 FiO2 12/08/22 10:23 21 12/08/22 08:00 12/08/22 03:18 12/08/22 00:08 12/07/22 23:38 12/07/22 16:08 Intake and Output 12/07/22 12/08/22 12/08/22 22:59 06:59 14:59 Output Total 200 100 Balance -200 -100 Output: Urine 200 100 Other: Voiding Method Urinal # Voids 3 1 Weight 78.925 kg 78.925 kg Results 12/08/22 06:58 12/08/22 06:58 Cardiac Enzymes 12/07/22 12/08/22 Range/Units 19:21 10:00 AST 58 (17-59) U/L Troponin I <0.012 (0.000-0.034) ng/mL Coagulation 12/07/22 Range/Units 21:13 PT 10.2 (10.0-12.5) sec APTT 21.3 L (22.0-30.0) sec CBC 12/07/22 12/08/22 Range/Units 19: 06:58 WBC 10.8 H 7.8 (3.8-10.6) k/uL RBC 4.17 L 3.53 L (4.30-5.90) m/uL Hgb 12.1 L 10.2 L (13.0-17.5) gm/dL Hct 38.1 L 32.5 L (39.0-53.0) % Plt Count 203 213 (150-450) k/uL Comprehensive Metabolic Panel 12/07/22 12/08/22 Range/Units 19: 06:58 Sodium 138 138 (137-145) mmol/L Potassium 4.6 4.3 (3.5-5.1) mmol/L Chloride 105 108 H (98-107) mmol/L Carbon Dioxide 25 26 (22-30) mmol/L BUN 26 H 25 H (9-20) mg/dL Creatinine 0.80 0.89 (0.66-1.25) mg/dL Glucose 99 100 H (74-99) mg/dL Calcium 8.4 7.9 L (8.4-10.2) mg/dL AST 58 (17-59) U/L ALT 10 (4-49) U/L Alkaline Phosphatase 79 (38-126) U/L Total Protein 6.2 L (6.3-8.2) g/dL Albumin 3.4 L (3.5-5.0) g/dL Current Medications Generic Name Dose Route Start Last Admin Trade Name Freq PRN Reason Stop Dose Admin Acetaminophen 650 mg 12/07/22 23:09 Acetaminophen Tab 325 Mg Tab PO Q6HR PRN Mild Pain or Fever > 100.5 Aspirin 81 mg 12/08/22 09:00 12/08/22 09:24 Aspirin 81 Mg PO 81 mg DAILY ROGER Administration Atorvastatin Calcium 20 mg 12/08/22 09:00 12/08/22 09:25 Atorvastatin 20 Mg Tab PO 20 mg DAILY ROGER Administration Carbidopa/Levodopa 2 each 12/07/22 23:15 12/08/22 11:50 Carbidopa-Levodopa 25-100 Mg 1 Each Tab PO 2 each Q6H ROGER Administration Ciprofloxacin 500 mg 12/08/22 09:00 12/08/22 09:25 Ciprofloxacin Hcl 500 Mg Tab PO 12/11/22 09:01 500 mg BID ROGER Administration Protocol Duloxetine HCl 20 mg 12/08/22 09:00 12/08/22 09:24 Duloxetine Hcl 20 Mg Capsule.Dr PO 20 mg DAILY ROGER Administration Finasteride 5 mg 12/08/22 09:00 12/08/22 09:26 Finasteride 5 Mg Tab PO 5 mg DAILY ROGER Administration Gabapentin 300 mg 12/07/22 23:13 Gabapentin 300 Mg Cap PO DAILY PRN Pain Ketorolac Tromethamine 15 mg 12/07/22 23:09 Ketorolac 15 Mg/Ml 1 Ml Vial IVP 12/10/22 23:12 Q6HR PRN Moderate Pain (Scale 4 to 6) Lorazepam 0.5 mg 12/07/22 23:13 Lorazepam 0.5 Mg Tab PO HS PRN Anxiety Losartan Potassium 25 mg 12/08/22 09:00 12/08/22 09:26 Losartan 25 Mg Tab PO 25 mg DAILY ROGER Administration Methocarbamol 500 mg 12/08/22 09:00 12/08/22 09:24 Methocarbamol 500 Mg Tab PO 500 mg BID ROGER Administration Naloxone HCl 0.2 mg 12/07/22 23:09 Naloxone 0.4 Mg/Ml 1 Ml Vial IV Q2M PRN Opioid Reversal Potassium Chloride 10 meq 12/08/22 09:00 12/08/22 09:24 Potassium Chloride Er 10 Meq Tab.Er.Prt PO 10 meq DAILY ROGER Administration Propranolol HCl 20 mg 12/08/22 09:00 12/08/22 09:24 Propranolol 20 Mg Tab PO 20 mg BID ROGER Administration Tamsulosin HCl 0.4 mg 12/08/22 08:30 12/08/22 09:24 Tamsulosin 0.4 Mg Cap.Er.24h PO 0.4 mg PC-BRKFST ROGER Administration Intake and Output 12/07/22 12/08/22 12/08/22 22:59 06:59 14:59 Output Total 200 100 Balance -200 -100 Output: Urine 200 100 Other: Voiding Method Urinal # Voids 3 1 Weight 78.925 kg 78.925 kg 12/08/22 06:58 12/08/22 06:58
--- NOTE | 2022-12-08 13:09 | P.HPIM ---
History of Present Illness H&P Date: 12/08/22 History of present illness; patient 77-year-old gentleman with past medical hist ory significant for Parkinson disease, hypertension, BPH, kidney stones who presented to the ER because of a syncopal episode. Patient was diagnosed with right-sided kidney stone and a UTI and was on antibiotics. Patient was at home when he was found unresponsive by his family. Patient was sitting when he passed out. There was no prior complaint of shortness of breath or chest pain. Denied any complaint of palpitations. There was no jerking movement of any extremity. No complaint of slurred speech or facial droop. Patient was found to have low blood pressure that time which he recovered. Because of this episode, patient was sent to the ER Initial lab work done in the ER showed WBC 10.8, hemoglobin 12.7, platelet count 203, sodium 134 potassium 4.6, BUN 20, creatinine 0.80, glucose 99, magnesium 2.1, AST 58, AST 10, UA negative for any infection Influenza A- Influenza B not detected RSV not detected COVID-19 not detected Chest x-ray done in the ER showed no acute cardiopulmonary process or disease, showed COPD changes Pelvic x-ray negative for any fracture CT brain negative for any acute intracranial process Ultrasound kidney showed solid lesion in the right kidney, nonobstructing left renal calculus REVIEW OF SYSTEMS: CONSTITUTIONAL: No fever, no malaise, no fatigue. HEENT: No recent visual problems or hearing problems. Denied any sore throat. CARDIOVASCULAR: No chest pain, orthopnea, PND, no palpitations, no syncope. PULMONARY: No shortness of breath, no cough, no hemoptysis. GASTROINTESTINAL: No diarrhea, no nausea, no vomiting, no abdominal pain. NEUROLOGICAL: No headaches, no weakness, no numbness. HEMATOLOGICAL: Denies any bleeding or petechiae. GENITOURINARY: Denies any burning micturition, frequency, or urgency. MUSCULOSKELETAL/RHEUMATOLOGICAL: Denies any joint pain, swelling, or any muscle pain. ENDOCRINE: Denies any polyuria or polydipsia. The rest of the 14-point review of systems is negative. PHYSICAL EXAMINATION: GENERAL: The patient is alert and oriented x3, not in any acute distress. Well developed, well nourished. HEENT: Pupils are round and equally reacting to light. EOMI. No scleral icterus. No conjunctival pallor. Normocephalic, atraumatic. No pharyngeal erythema. No thyromegaly. CARDIOVASCULAR: S1 and S2 present. No murmurs, rubs, or gallops. PULMONARY: Chest is clear to auscultation, no wheezing or crackles. ABDOMEN: Soft, nontender, nondistended, normoactive bowel sounds. No palpable organomegaly. MUSCULOSKELETAL: No joint swelling or deformity. EXTREMITIES: No cyanosis, clubbing, or pedal edema. NEUROLOGICAL: Gross neurological examination did not reveal any focal deficits. SKIN: No rashes. Assessment and plan Syncope Right renal mass Nonobstructing left renal calculus Parkinson's disease Hypertension Monitor vital signs Monitor CBC Monitor CMP Continue telemetry monitoring Trend troponin. Ordered d-dimer Ordered 2-D echo Ordered ultrasound of carotids Consult cardiology Consult urology PT and OT consulted Labs and medication were reviewed.. Continue same treatment. Continue with symptomatic treatment. Resume home medication. Monitor labs and vitals. DVT and GI prophylaxis. Further recommendations as per clinical course of the patient Dictation was produced using [employer] dictation software. please excuse any grammatical, word or spelling errors. Past Medical History Past Medical History: Hyperlipidemia, Hypertension, Neurologic Disorder, Prostate Disorder Additional Past Medical History / Comment(s): pain lower back and martin legs, intermittent lower leg swelling, elevated PSA, parkinsons disease, occasional tremors History of Any Multi-Drug Resistant Organisms: None Reported Past Surgical History: Back Surgery, Heart Catheterization, Hernia Repair Additional Past Surgical History / Comment(s): back surgeries x4, for spinal stenosis and excess scar tissue, martin cataract removed Past Anesthesia/Blood Transfusion Reactions: Motion Sickness, Postoperative Nausea & Vomiting (PONV) Past Psychological History: Anxiety Smoking Status: Former smoker Past Alcohol Use History: None Reported Additional Past Alcohol Use History / Comment(s): quit smoking 1988 after 25 years 1 1/2 ppd Past Drug Use History: None Reported - Past Family History Brother(s) Family Medical History: Cancer Additional Family Medical History / Comment(s): breast Medications and Allergies Home Medications Medication Instructions Recorded Confirmed Type Atorvastatin [Lipitor] 20 mg PO DAILY 09/12/15 12/07/22 History Finasteride [Proscar] 5 mg PO DAILY 09/12/15 12/07/22 History Aspirin [Adult Low Dose Aspirin EC] 81 mg PO DAILY 09/20/15 12/07/22 History Furosemide [Lasix] 20 mg PO DAILY 10/24/17 12/07/22 History Losartan [Cozaar] 25 mg PO DAILY 10/24/17 12/07/22 History B Complex-Vit C-Vit E-Zinc [Z-Bec] 1 tab PO DAILY 03/22/22 12/07/22 History Cholecalciferol (Vitamin D3) 125 mcg PO DAILY 03/22/22 12/07/22 History [Vitamin D3 (125 MCG = 5,000 IU)] DULoxetine HCL 20 mg PO DAILY 03/22/22 12/07/22 History LORazepam 0.5 mg PO HS PRN 03/22/22 12/07/22 History Propranolol [Inderal] 20 mg PO BID 03/22/22 12/07/22 History methocarbamoL 500 mg PO BID 03/22/22 12/07/22 History Carbidopa-Levodopa 25-100 mg 2 tab PO Q6H 11/30/22 12/07/22 History [Sinemet 25-100 mg] Gabapentin [Neurontin] 300 mg PO DAILY PRN 11/30/22 12/07/22 History Potassium Chloride ER [K-Dur 10] 10 meq PO DAILY 11/30/22 12/07/22 History Sennosides/Docusate Sodium [Senna 1 tab PO BID PRN 11/30/22 12/07/22 History Plus 8.6-50 mg Softgel] Ciprofloxacin HCl [Cipro] 500 mg PO BID #14 tab 12/04/22 12/07/22 Rx Tamsulosin [Flomax] 0.4 mg PO PC-BRKFST #30 cap 12/04/22 12/07/22 Rx Allergies Allergy/AdvReac Type Severity Reaction Status Date / Time No Known Allergies Allergy Verified 12/07/22 22:59 Physical Exam Vitals: Vital Signs Temp Pulse Pulse Resp BP BP Pulse Ox 12/08/22 08:00 98 F 76 18 113/55 95 12/08/22 03:18 98 F 78 16 110/67 98 12/08/22 00:08 98.9 F 85 16 180/81 97 12/07/22 23:38 87 18 155/71 97 12/07/22 16:08 98.4 F 54 L 20 101/57 95 Intake and Output 12/07/22 12/08/22 12/08/22 22:59 06:59 14:59 Output Total 200 100 Balance -200 -100 Output: Urine 200 100 Other: # Voids 3 1 Weight 78.925 kg 78.925 kg Results CBC & Chem 7: 12/08/22 06:58 12/08/22 06:58 Labs: Abnormal Lab Results - Last 24 Hours (Table) 12/07/22 12/07/22 12/07/22 Range/Units 19:21 19:21 21:13 WBC 10.8 H (3.8-10.6) k/uL RBC 4.17 L (4.30-5.90) m/uL Hgb 12.1 L (13.0-17.5) gm/dL Hct 38.1 L (39.0-53.0) % Neutrophils # 8.8 H (1.3-7.7) k/uL APTT 21.3 L (22.0-30.0) sec Chloride (98-107) mmol/L BUN 26 H (9-20) mg/dL Glucose (74-99) mg/dL Calcium (8.4-10.2) mg/dL Total Protein 6.2 L (6.3-8.2) g/dL Albumin 3.4 L (3.5-5.0) g/dL 12/08/22 12/08/22 Range/Units 06:58 06:58 WBC (3.8-10.6) k/uL RBC 3.53 L (4.30-5.90) m/uL Hgb 10.2 L (13.0-17.5) gm/dL Hct 32.5 L (39.0-53.0) % Neutrophils # (1.3-7.7) k/uL APTT (22.0-30.0) sec Chloride 108 H (98-107) mmol/L BUN 25 H (9-20) mg/dL Glucose 100 H (74-99) mg/dL Calcium 7.9 L (8.4-10.2) mg/dL Total Protein (6.3-8.2) g/dL Albumin (3.5-5.0) g/dL Thrombosis Risk Factor Assmnt - Choose All That Apply Any of the Below Risk Factors Present?: No Other Risk Factors: Yes Each Risk Factor Represents 3 Points: Age 75 years or older Other congenital or acquired thrombophilia - If yes, enter type in comment: No Thrombosis Risk Factor Assessment Total Risk Factor Score: 3 Thrombosis Risk Factor Assessment Level: Moderate Risk
--- NOTE | 2022-12-08 15:23 | US ---
EXAMINATION TYPE: US venous doppler duplex LE BI DATE OF EXAM: 12/08/2022 1:54 PM COMPARISON: US 07/28/2015 CLINICAL INDICATION: Male, 77 years old with history of DVT; No hx of DVT. SIDE PERFORMED: Bilateral TECHNIQUE: The lower extremity deep venous system is examined utilizing real time linear array sonog anabela with graded compression, doppler sonography and color-flow sonography. VESSELS IMAGED: Common Femoral Vein Deep Femoral Vein Greater Saphenous Vein * Femoral Vein Popliteal Vein Small Saphenous Vein * Proximal Calf Veins (* superficial vessels) Right Leg: No evidence of DVT. Left Leg: No evidence of DVT. The deep venous systems of the lower extremities from the common femoral veins to the proximal calf v eins are patent and compressible with augmentable flow throughout. IMPRESSION: No bilateral lower extremity DVT as described.
--- NOTE | 2022-12-08 16:08 | CT ---
EXAMINATION TYPE: CT chest angio for PE DATE OF EXAM: 12/08/2022 COMPARISON: None HISTORY: PE CT DLP: 446.6 mGycm Automated exposure control for dose reduction was used. CONTRAST: CT Chest for pulmonary embolism performed with with IV Contrast, patient injected with 60 mL of Isovu e 300. 3-D postprocessing was performed. FINDINGS: LUNGS: The lungs are grossly clear, there is no concerning parenchymal mass or nodule identified. T here is no pleural effusion or pneumothorax seen. The tracheobronchial tree is patent. MEDIASTINUM: There is satisfactory enhancement of the pulmonary artery and its branches, there is no CT evidence for pulmonary embolism. There are no greater than 1 cm hilar or mediastinal lymph nodes. No pericardial effusion is seen. OTHER: No additional significant abnormality is seen. IMPRESSION: 1. No pulmonary embolism. 2. No acute cardiopulmonary disease.
[2022-12-09] MEDS: CARBIDOPA-LEVODOPA 25-100 MG 1 EACH TAB PO SCH ×4 (05:37→23:03)
[2022-12-09] MEDS: DULoxetine HCL 20 MG CAPSULE.DR PO SCH (08:22)
[2022-12-09] MEDS: methocarbamoL 500 MG TAB PO SCH ×2 (08:22→20:14)
[2022-12-09] MEDS: FINASTERIDE 5 MG TAB PO SCH (08:22)
[2022-12-09] MEDS: ASPIRIN 81 MG PO SCH (08:22)
[2022-12-09] MEDS: LOSARTAN 25 MG TAB PO SCH (08:22)
[2022-12-09] MEDS: TAMSULOSIN 0.4 MG CAP.ER.24H PO SCH (08:23)
[2022-12-09] MEDS: ATORVASTATIN 20 MG TAB PO SCH (08:23)
[2022-12-09] MEDS: CIPROFLOXACIN HCL 500 MG TAB PO SCH ×2 (08:23→20:14)
[2022-12-09] MEDS: PROPRANOLOL 20 MG TAB PO SCH ×2 (08:23→20:14)
[2022-12-09] MEDS: POTASSIUM CHLORIDE ER 10 MEQ TAB.ER.PRT PO SCH (08:23)
[2022-12-09] MEDS: KETOROLAC 15 MG/ML 1 ML VIAL IVP PRN (08:50)
--- NOTE | 2022-12-09 13:35 | P.PN ---
Subjective Progress Note Date: 12/09/22 patient 77-year-old gentleman with past medical history significant for Parkinson disease, hypertension, BPH, kidney stones who presented to the ER because of a syncopal episode. Patient was diagnosed with right-sided kidney stone and a UTI and was on antibiotics. Patient was at home when he was found unresponsive by his family. Patient was sitting when he passed out. There was no prior complaint of shortness of breath or chest pain. Denied any complaint of palpitations. There was no jerking movement of any extremity. No complaint of slurred speech or facial droop. Patient was found to have low blood pressure that time which he recovered. Because of this episode, patient was sent to the ER Initial lab work done in the ER showed WBC 10.8, hemoglobin 12.7, platelet count 203, sodium 134 potassium 4.6, BUN 20, creatinine 0.80, glucose 99, magnesium 2.1, AST 58, AST 10, UA negative for any infection Influenza A- Influenza B not detected RSV not detected COVID-19 not detected Chest x-ray done in the ER showed no acute cardiopulmonary process or disease, showed COPD changes Pelvic x-ray negative for any fracture CT brain negative for any acute intracranial process Ultrasound kidney showed solid lesion in the right kidney, nonobstructing left renal calculus 12/09. Patient seen and examined. No acute issues overnight, ultrasound carotids shows bilateral carotid artery stenosis. Vital signs stable REVIEW OF SYSTEMS: CONSTITUTIONAL: No fever, no malaise,. CARDIOVASCULAR: No chest pain, no palpitations, no syncope. PULMONARY: No shortness of breath, no cough, GASTROINTESTINAL: No diarrhea, no nausea, no vomiting, no abdominal pain. NEUROLOGICAL: No headaches, no weakness, PHYSICAL EXAMINATION: GENERAL: The patient is alert and oriented x3, not in any acute distress. Well developed, well nourished. HEENT: Pupils are round and equally reacting to light. EOMI. No scleral icterus. No conjunctival pallor. Normocephalic, atraumatic. No pharyngeal erythema. No thyromegaly. CARDIOVASCULAR: S1 and S2 present. No murmurs, rubs, or gallops. PULMONARY: Chest is clear to auscultation, no wheezing or crackles. ABDOMEN: Soft, nontender, nondistended, normoactive bowel sounds. No palpable organomegaly. MUSCULOSKELETAL: No joint swelling or deformity. EXTREMITIES: No cyanosis, clubbing, or pedal edema. NEUROLOGICAL: Gross neurological examination did not reveal any focal deficits. SKIN: No rashes. Assessment and plan Syncope Right renal mass Bilateral carotid artery stenosis Nonobstructing left renal calculus Parkinson's disease Hypertension Monitor vital signs Monitor CBC Monitor CMP Continue telemetry monitoring Trend troponin. CTA chest negative for PE Ultrasound of lower extremities negative for DVT ultrasound of carotids showed 50-69% stenosis of bilateral carotid cardiology following urology following Consult vascular surgery PT and OT consulted Labs and medication were reviewed.. Continue same treatment. Continue with symptomatic treatment. Resume home medication. Monitor labs and vitals. DVT and GI prophylaxis. Further recommendations as per clinical course of the patient Dictation was produced using [employer] dictation software. please excuse any grammatical, word or spelling errors. Objective - Vital Signs Vital signs: Vital Signs Temp 97.7 F 12/09/22 08:00 Pulse 62 12/09/22 08:00 Resp 17 12/09/22 08:00 BP 139/62 12/09/22 08:00 Pulse Ox 97 12/09/22 02:00 FiO2 21 12/08/22 10:23 Intake & Output 12/08/22 12/09/22 12/09/22 18:59 06:59 18:59 Intake Total 221 590 Output Total 100 701 Balance 121 -111 Intake: Oral 221 590 Output: Urine 100 700 Stool 1 Other: Voiding Method Urinal # Voids 3 1 # Bowel Movements 2 1 - Labs CBC & Chem 7: 12/08/22 06:58 12/08/22 06:58 Labs: Abnormal Lab Results - Last 24 Hours (Table) 12/08/22 Range/Units 10:00 D-Dimer 0.96 H (<0.60) mg/L FEU
[2022-12-09] MEDS ORDERED: ZINC OXIDE PASTE (Z-GUARD) 1 APPLIC APPLIC TOPICAL PRN (17:16)
--- NOTE | 2022-12-09 19:56 | P.PN ---
Subjective Progress Note Date: 12/09/22 Progress note: Patient is doing well from cardiac vessel standpoint. He is hemodynamics stable. His orthostatic vital signs have been negative HISTORY OF PRESENTING ILLNESS 77-year-old was recently hospitalized for generalized weakness and possible urin miley tract infection. Last admission he was evaluated by cardiology. At that time echocardiogram showed a preserved LV systolic function with [id number] aortic regurgitation due to calcific aortic valve but no valvular stenosis. No other cardiac interventions were done at that time. Had a heart cath in 2018 which showed no significant obstructive coronary artery disease This time he presented to the hospital because of concerns of syncope. He was being evaluated by his home care nurse when he passed out for less than 2 minutes while sitting in a chair talking to his nurse. Lasting remember was talking to his nurse before passing out. The first thing he remembered after waking up was his nurse trying to wake him up. He denies having any chest pain chest pressure shortness of breath during that event. He denied any palpitations. Since then he has been feeling generalized weakness. His blood pressure has been fluctuant. Initial reading was 180/90, repeat reading was 110/70 He also has history of Parkinson's disease, essential tremor, hypertension, benign prostatic hypertrophy, renal mass His ECG shows sinus rhythm with no significant ST-T wave changes diagnostic for ischemia, nonspecific interventricular conduction delay. His telemetry does not show any arrhythmias over last 24 hours. Carotid Doppler showed 50-69% disease bilaterally REVIEW OF SYSTEMS 14 point review of system is negative except what is mentioned above in HPI. PHYSICAL EXAMINATION Vital signs reviewed. Head: Normocephalic. Eyes: Sclerae nonicteric. Neck: Brisk carotid upstroke, no jugular venous distention. Lungs: Clear to auscultation. Heart: Regular rate and rhythm, S1-S2, no S3, no murmur or rub. Abdomen: Soft nontender, positive bowel sounds no organomegaly. Extremities: 1+ pitting edema in bilateral ankles Neuro: Alert, oritented, no focal deficits ASSESSMENT Questionable syncope. Generalized weakness Parkinson's disease Hypertension Lower extremity edema, chronic BPH Essential tremors PLAN Patient's history is very limited but syncope is less concerning of cardiac etiology. No arrhythmias on ECG on telemetry. Echo did not show any significant stenotic valvular disease. There is mild to moderate aortic regurgitation. He does not have any chest pains or shortness of breath. No palpitations 1+ pitting edema in bilateral lower extremity which appears to be chronic. I feel that Lasix is not the appropriate treatment for this. I will discontinue his Lasix and would recommend compression stockings Obtain bilateral cerebral Dopplers because of elevated d-dimer and concerns of possible PE and DVT Would recommend primary care physician to work him up for generalized weakness. Consider neurological evaluation Objective - Vital Signs Vital signs: Vital Signs Temp 98.5 F 12/09/22 19:43 Pulse 63 12/09/22 19:43 Resp 18 12/09/22 19:43 BP 105/58 12/09/22 19:43 Pulse Ox 95 12/09/22 19:43 FiO2 21 12/08/22 10:23 Intake & Output 12/09/22 12/09/22 12/10/22 06:59 18:59 06:59 Intake Total 590 Output Total 701 Balance -111 Intake: Oral 590 Output: Urine 700 Stool 1 Other: # Voids 1 1 # Bowel Movements 1 1 - Labs CBC & Chem 7: 12/08/22 06:58 12/08/22 06:58
[2022-12-10] MEDS: KETOROLAC 15 MG/ML 1 ML VIAL IVP PRN ×2 (00:28→06:08)
[2022-12-10 01:55] VITALS: RESP 16
[2022-12-10] MEDS: CARBIDOPA-LEVODOPA 25-100 MG 1 EACH TAB PO SCH ×2 (04:45→12:07)
--- NOTE | 2022-12-10 08:52 | P.PN ---
Subjective Progress Note Date: 12/10/22 The patient is in the hospital for being found unresponsive. He has he had a computed tomography scan of abdomen identifying a right renal mass. We are asked to evaluate this. Historically the patient states that he is known about this for many years. I had opportunity to review the office chart as he stated that he was seen by years ago and sent to [facility] were he was told this was a benign lesion. Do not have anything in the chart to corroborate that. Upon reviewing the radiology records he has had an ultrasound and CAT scan dating to 2010. The lesion at that point time was 2-2.5 cm. It is 2.9 cm now. It was question as to whether this was an atypical cyst or a cystic carcinoma. 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 Recommendations: It is unclear as to whether this is malignant or not. Most likely based on the fact that it is barely change size in over 10 years makes this probably a benign lesion, Bosniak class III cyst. The question as to whether to proceed with further evaluation and/or biopsy. We'll discuss this with the patient to clarify his desires.
[2022-12-10] MEDS: CIPROFLOXACIN HCL 500 MG TAB PO SCH (08:55)
[2022-12-10] MEDS: FINASTERIDE 5 MG TAB PO SCH (08:55)
[2022-12-10] MEDS: POTASSIUM CHLORIDE ER 10 MEQ TAB.ER.PRT PO SCH (08:55)
[2022-12-10] MEDS: ASPIRIN 81 MG PO SCH (08:55)
[2022-12-10] MEDS: TAMSULOSIN 0.4 MG CAP.ER.24H PO SCH (08:55)
[2022-12-10] MEDS: DULoxetine HCL 20 MG CAPSULE.DR PO SCH (08:55)
[2022-12-10] MEDS: LOSARTAN 25 MG TAB PO SCH (08:55)
[2022-12-10] MEDS: ATORVASTATIN 20 MG TAB PO SCH (08:55)
[2022-12-10] MEDS: PROPRANOLOL 20 MG TAB PO SCH (08:56)
[2022-12-10] MEDS: methocarbamoL 500 MG TAB PO SCH (08:56)
--- NOTE | 2022-12-10 10:30 | P.GSCN ---
History of Present Illness Consult date: 12/10/22 Reason for Consult: Bilateral Carotid stenosis Requesting physician: Amador Dos Santos History of present illness: Conclusion this is a pleasant, 77-year-old male with a history of Parkinson's disease, hypertension, hyperlipidemia, chronic lower extremity weakness related to low back surgery who was diagnosed recently with urinary tract infection and kidney stone. Patient presented to the emergency department for syncope and collapse. Apparently patient was at his [facility] in the kitchen and with standing and states that he just passed out. He was told that he had low blood pressure at the time. She is part of his workup carotid duplex was ordered which had reported 50-69% narrowing of bilateral carotid bifurcations. Vascular surgery was consulted for carotid stenosis. Patient was seen and examined by cardiology, recent echocardiogram reported preserved LV systolic function with mild to moderate aortic regurgitation due to calcific aortic valve but no valvular stenosis. Patient currently denies any dizziness, denies any focal deficits, states that he has chronic lower extremity swelling and is on Lasix, chronic lower extremity weakness due to back surgeries. He states he does not ambulate regularly, only ambulates with walker. Review of Systems A 14 point review systems was completed all pertinent positives and negatives as stated in the HPI. Past Medical History Past Medical History: Hyperlipidemia, Hypertension, Neurologic Disorder, Prostate Disorder Additional Past Medical History / Comment(s): pain lower back and martin legs, intermittent lower leg swelling, elevated PSA, parkinsons disease, occasional tremors History of Any Multi-Drug Resistant Organisms: None Reported Past Surgical History: Back Surgery, Heart Catheterization, Hernia Repair Additional Past Surgical History / Comment(s): back surgeries x4, for spinal stenosis and excess scar tissue, martin cataract removed Past Anesthesia/Blood Transfusion Reactions: Motion Sickness, Postoperative Nausea & Vomiting (PONV) Past Psychological History: Anxiety Smoking Status: Former smoker Past Alcohol Use History: None Reported Additional Past Alcohol Use History / Comment(s): quit smoking 1988 after 25 yea rs 1 1/2 ppd Past Drug Use History: None Reported - Past Family History Brother(s) Family Medical History: Cancer Additional Family Medical History / Comment(s): breast Medications and Allergies Home Medications Medication Instructions Recorded Confirmed Type Atorvastatin [Lipitor] 20 mg PO DAILY 09/12/15 12/07/22 History Finasteride [Proscar] 5 mg PO DAILY 09/12/15 12/07/22 History Aspirin [Adult Low Dose Aspirin EC] 81 mg PO DAILY 09/20/15 12/07/22 History Furosemide [Lasix] 20 mg PO DAILY 10/24/17 12/07/22 History Losartan [Cozaar] 25 mg PO DAILY 10/24/17 12/07/22 History B Complex-Vit C-Vit E-Zinc [Z-Bec] 1 tab PO DAILY 03/22/22 12/07/22 History Cholecalciferol (Vitamin D3) 125 mcg PO DAILY 03/22/22 12/07/22 History [Vitamin D3 (125 MCG = 5,000 IU)] DULoxetine HCL 20 mg PO DAILY 03/22/22 12/07/22 History LORazepam 0.5 mg PO HS PRN 03/22/22 12/07/22 History Propranolol [Inderal] 20 mg PO BID 03/22/22 12/07/22 History methocarbamoL 500 mg PO BID 03/22/22 12/07/22 History Carbidopa-Levodopa 25-100 mg 2 tab PO Q6H 11/30/22 12/07/22 History [Sinemet 25-100 mg] Gabapentin [Neurontin] 300 mg PO DAILY PRN 11/30/22 12/07/22 History Potassium Chloride ER [K-Dur 10] 10 meq PO DAILY 11/30/22 12/07/22 History Sennosides/Docusate Sodium [Senna 1 tab PO BID PRN 11/30/22 12/07/22 History Plus 8.6-50 mg Softgel] Ciprofloxacin HCl [Cipro] 500 mg PO BID #14 tab 12/04/22 12/07/22 Rx Tamsulosin [Flomax] 0.4 mg PO PC-BRKFST #30 cap 12/04/22 12/07/22 Rx Allergies Allergy/AdvReac Type Severity Reaction Status Date / Time No Known Allergies Allergy Verified 12/07/22 22:59 Surgical - Exam Vital Signs Temp Pulse Resp BP Pulse Ox 98.4 F 54 L 20 101/57 95 12/07/22 16:08 12/07/22 16:08 12/07/22 16:08 12/07/22 16:08 12/07/22 16:08 General appearance: The patient is alert, oriented, appears in no acute distress. HET: Head is normocephalic and atraumatic. Pupils are equal and reactive. Neck: Supple. No carotid bruit. Heart: Regular. Lungs: Equal expansion, normal respiratory effort. Abdomen: Soft, nontender, nondistended. Extremities: Normal skin color and turgor. Lower extremity swelling. Neurological: No focal deficits. Bilateral upper and lower extremity weakness, with good tone. Results - Labs 12/08/22 06:58 12/08/22 06:58 - Imaging Comments: Carotid duplex right ICA PSV 133.4, ICA/CCA ratio 1.4. Left ICA PSV 135, ICA/CCA ratio 1.3. Reported 50-69% stenosis of bilateral carotid bifurcation. Reports no acute intracranial process. Nonspecific white matter changes, likely secondary to chronic small vessel ischemic disease. Puncture of left caudad nucleus remote injury suggested. Ultrasound kidneys, renal and bladder reported solid lesion in the right kidney again seen which appears fluid density on CT imaging. MRI renal mass protocol should be performed to completely characterize lesion. Nonobstructing left renal calculus. No evidence for hydronephrosis. Also nonobstructing right renal calculus. Chest CTA reports no pulmonary embolism. No acute cardiopulmonary disease Lower extremity venous duplex no bilateral lower extremity DVT. Pelvis x-ray. No acute osseous pathology Chest x-ray. No acute cardiopulmonary disease process. COPD changes. Assessment and Plan Assessment: 1. Syncope and collapse 2. Asymptomatic 50-69% carotid stenosis bilateral carotid bifurcations per carotid duplex 3. Right renal mass seen on renal ultrasound 4. History of hypertension and hyperlipidemia 5. Parkinson's disease 6. Chronic lower extremity weakness related to prior back surgery Plan: Patient has asymptomatic carotid stenosis per carotid duplex. Syncope not related to carotid stenosis. Continue further medical workup and recommendations. No indication for any further vascular surgical workup at this time. Patient can follow-up in the outpatient setting for carotid surveillan ce. Continue aspirin 81 mg and statin. Thank you for this consultation. The impression and plan of care has been dictated as directed. Dr. Thurman I performed a history and examination of this patient, discussed the same with the dictator. I agree with the dictator's note ,documented as a scribe. Any additional findings or plans will be noted.
[2022-12-10] MEDS ORDERED: FUROSEMIDE 20 MG TAB PO SCH ×2 (11:30)
[2022-12-10 11:40] LABS: Basophils % (A) 0 %; Eosinophils # (A) 0.2 k/uL (0-0.7); Eosinophils % (A) 3 %; HCT 35.4 % (39.0-53.0); HGB 11.2 gm/dL (13.0-17.5); Hypochromasia Slight; Lymphocytes # (A) 0.8 k/uL (1.0-4.8); Lymphocytes % (A) 13 %; MCH 29.1 pg (25.0-35.0); MCHC 31.7 g/dL (31.0-37.0); MCV 91.8 fL (80.0-100.0); Mean Platelet Volume 8.2; Monocytes # (A) 0.3 k/uL (0-1.0); Monocytes % (A) 5 %; Neutrophils # (A) 5.1 k/uL (1.3-7.7); Neutrophils % (A) 78 %; Platelet Count 258 k/uL (150-450); RBC 3.85 m/uL (4.30-5.90); RDW 14.1 % (11.5-15.5); WBC 6.6 k/uL (3.8-10.6)
[2022-12-10 11:49] LABS: African American GFR (CKD) 87 (>60 ml/min/1.73 sqM); Anion Gap 6 mmol/L; Blood Urea Nitrogen 29 mg/dL (9-20); Calcium 8.4 mg/dL (8.4-10.2); Carbon Dioxide 26 mmol/L (22-30); Chloride 105 mmol/L (98-107); Glucose 88 mg/dL (74-99); Non-African American GFR(CKD) 75 (>60 ml/min/1.73 sqM); Potassium 4.3 mmol/L (3.5-5.1); Sodium 137 mmol/L (137-145)
--- NOTE | 2022-12-10 12:09 | P.PN ---
Subjective HISTORY OF PRESENT ILLNESS: 77-year-old was recently hospitalized for generalized weakness and possible urinary tract infection. Last admission he was evaluated by cardiology. At that time echocardiogram showed a preserved LV systolic function with [id number] aortic regurgitation due to calcific aortic valve but no valvular stenosis. No other cardiac interventions were done at that time. Had a heart cath in 2018 which showed no significant obstructive coronary artery disease This time he presented to the hospital because of concerns of syncope. He was being evaluated by his home care nurse when he passed out for less than 2 minutes while sitting in a chair talking to his nurse. Lasting remember was t alking to his nurse before passing out. The first thing he remembered after waking up was his nurse trying to wake him up. He denies having any chest pain chest pressure shortness of breath during that event. He denied any palpitations. Since then he has been feeling generalized weakness. His blood pressure has been fluctuant. Initial reading was 180/90, repeat reading was 110/70 He also has history of Parkinson's disease, essential tremor, hypertension, benign prostatic hypertrophy, renal mass His ECG shows sinus rhythm with no significant ST-T wave changes diagnostic for ischemia, nonspecific interventricular conduction delay. His telemetry does not show any arrhythmias over last 24 hours. Carotid Doppler showed 50-69% disease bilaterally 12/09/2022 Patient is doing well from cardiac vessel standpoint. He is hemodynamics stable. His orthostatic vital signs have been negative 12/10/2022 Patient examined this morning. Patient is sitting up in the chair. Patient denies any chest pain or pressure. He denies shortness of breath. He reports lower extremity edema. Patient has not received his Lasix since coming to the hospital. Telemetry reveals sinus mechanism. Orthostatic blood pressures were negative. PHYSICAL EXAM: VITAL SIGNS: Reviewed. GENERAL: Well-developed in no acute distress. NECK: Supple. No JVD or thyromegaly LUNGS: Respirations even and unlabored. Lungs essentially clear to auscultation bilaterally. HEART: Regular rate and rhythm. S1 and S2 heard. EXTREMITIES: Normal range of motion. No clubbing or cyanosis. Peripheral pulses intact. 1+ bilateral lower extremity edema ASSESSMENT: Questionable syncope Generalized weakness Hypertension Chronic lower extremity edema Parkinson's disease BPH Essential tremors PLAN: Resume oral Lasix. Change dosing to every 48 hours Continue to monitor blood pressure Patient is currently stable from a cardiac standpoint We will sign off. Please reconsult if needed. Nurse practitioner note has been reviewed by physician. Signing provider agrees with the documented findings, assessment, and plan of care. Objective - Vital Signs Vital signs: Vital Signs Temp 98 F 12/10/22 07:34 Pulse 57 L 12/10/22 07:34 Resp 16 12/10/22 07:34 BP 157/70 12/10/22 07:34 Pulse Ox 96 12/10/22 07:34 FiO2 21 12/08/22 10:23 Intake & Output 12/09/22 12/10/22 12/10/22 18:59 06:59 18:59 Output Total 500 Balance -500 Output: Urine 500 Other: Voiding Method Urinal # Voids 1 2 # Bowel Movements 1 1 - Labs CBC & Chem 7: 12/10/22 11:21 12/10/22 11:21
[2022-12-10 14:01] VITALS: BP 125/75; PULSE 58; TEMP 98.3
--- NOTE | 2022-12-10 19:21 | P.PN ---
Progress Note - Text Progress Note Date: 12/10/22 I discussed with the patient the status of his stable right renal mass. I couldnt find notes from his surgeon at [facility], Dr brand. The patient states that he was told this lesion is benign. Given the stability of the lesion I suspect that this is true. I offered the patient a more complete evaluation of the mass but given the history he declines, understanding that this may be a very slowing growing malignancy. the patient or his primary[Dr Thomas] can contact us at anytime for further evaluation.
--- NOTE | 2022-12-12 10:11 | P.DS ---
Providers Date of admission: 12/07/22 23:13 Expected date of discharge: 12/10/22 Attending physician: Linda Thomas Consults: 12/08/22 09:41 Consult Physician Routine Consulting Provider: Evan Arciniega Consult Reason/Comments: renal mass Do you want consulting provider notified?: Yes 12/09/22 10:27 Consult Physician Routine Consulting Provider: Amanda Thurman Consult Reason/Comments: Bilateral carotid artery stenosis Do you want consulting provider notified?: Yes Primary care physician: Linda Thomas Hospital Course: Final diagnosis Syncope Right renal mass, urology recommending outpatient follow-up Bilateral carotid artery stenosis, vascular surgery recommending outpatient follow-up Nonobstructing left renal calculus Parkinson's disease Hypertension Obesity with a BMI of 30.8 GI prophylaxis DVT prophylaxis Full code Discharge disposition Patient is being discharged in a stable condition with guarded prognosis to home with home care. Patient will follow-up with Dr. Thomas in the outpatient setting upon discharge. Patient is to continue with close outpatient follow-up with urology and vascular surgery as scheduled. Total time taken is greater than 35 minutes. Hospital course This is a 77-year-old male who was recently admitted with a syncopal episode. Patient was diagnosed with a right-sided kidney stone any UTI maintained on antibiotics and he was found unresponsive by family. Patient was sitting and passed out. Patient brought here for further evaluation. Patient underwent cardiology workup as well as urology workup as well as being evaluated by vascular surgery for bilateral carotid artery stenosis. Patient had a history of a right renal mass and urology recommending outpatient follow-up as needed. Per no mass has been over 10 years. Patient worked with physical therapy reports improvement in strength like to go home. Patient being set up for home care in the outpatient setting and will be discharged home. Please refer to ot her consultation notes for further HPI. Currently no reports of chest pain, shortness of breath, or palpitations. Patient is afebrile. No reports of nausea or vomiting and patient is tolerating diet. Patient will be discharged home today. Guarded prognosis. Physical exam: Gen: This is a 77-year-old male who is awake, alert and oriented 3, well- developed, well-nourished, obese HEENT: Head is atraumatic, normocephalic. Pupils equal, round. Sclerae is anicteric. NECK: Supple. No JVD. No lymphadenopathy. No thyromegaly. LUNGS: Diminished breath sounds bilaterally with no wheezes or rhonchi. No intercostal retractions. HEART: S1, S2 are muffled ABDOMEN: Soft. Bowel sounds are present. No masses. No tenderness. EXTREMITIES: No pedal edema. No calf tenderness. NEUROLOGICAL: Patient is awake, alert and oriented x3. Cranial nerves 2 through 12 are grossly intact. Please refer to medication reconciliation sheet for a list of medications. The impression and plan of care has been dictated by Janette Epps, Nurse Practitioner as directed. Dr. Gonzales MD I have performed a history and examination and MDM of this patient, discussed the same with the dictator, and agree with the dictator's assessment and plan as written ,documented as a scribe. Based on total visit time, I have performed more than 50% of the visit. Patient Condition at Discharge: Stable Plan - Discharge Summary Discharge Rx Participant: No New Discharge Prescriptions: New Acetaminophen Tab [Tylenol] 650 mg PO Q6HR PRN tab PRN Reason: Mild Pain Or Fever > 100.5 Furosemide [Lasix] 20 mg PO Q48H tab Continue Atorvastatin [Lipitor] 20 mg PO DAILY Finasteride [Proscar] 5 mg PO DAILY Aspirin [Adult Low Dose Aspirin EC] 81 mg PO DAILY Losartan [Cozaar] 25 mg PO DAILY DULoxetine HCL 20 mg PO DAILY methocarbamoL 500 mg PO BID Cholecalciferol (Vitamin D3) [Vitamin D3 (125 MCG = 5,000 IU)] 125 mcg PO DAILY B Complex-Vit C-Vit E-Zinc [Z-Bec] 1 tab PO DAILY Sennosides/Docusate Sodium [Senna Plus 8.6-50 mg Softgel] 1 tab PO BID PRN PRN Reason: Constipation Ciprofloxacin HCl [Cipro] 500 mg PO BID #14 tab Propranolol [Inderal] 20 mg PO BID LORazepam 0.5 mg PO HS PRN PRN Reason: Anxiety Gabapentin [Neurontin] 300 mg PO DAILY PRN PRN Reason: Pain Potassium Chloride ER [K-Dur 10] 10 meq PO DAILY Carbidopa-Levodopa 25-100 mg [Sinemet 25-100 mg] 2 tab PO Q6H Tamsulosin [Flomax] 0.4 mg PO PC-BRKFST #30 cap Discontinued Furosemide [Lasix] 20 mg PO DAILY Discharge Medication List Atorvastatin [Lipitor] 20 mg PO DAILY 09/12/15 [History] Finasteride [Proscar] 5 mg PO DAILY 09/12/15 [History] Aspirin [Adult Low Dose Aspirin EC] 81 mg PO DAILY 09/20/15 [History] Losartan [Cozaar] 25 mg PO DAILY 10/24/17 [History] B Complex-Vit C-Vit E-Zinc [Z-Bec] 1 tab PO DAILY 03/22/22 [History] Cholecalciferol (Vitamin D3) [Vitamin D3 (125 MCG = 5,000 IU)] 125 mcg PO DAILY 03/22/22 [History] DULoxetine HCL 20 mg PO DAILY 03/22/22 [History] LORazepam 0.5 mg PO HS PRN 03/22/22 [History] Propranolol [Inderal] 20 mg PO BID 03/22/22 [History] methocarbamoL 500 mg PO BID 03/22/22 [History] Carbidopa-Levodopa 25-100 mg [Sinemet 25-100 mg] 2 tab PO Q6H 11/30/22 [History] Gabapentin [Neurontin] 300 mg PO DAILY PRN 11/30/22 [History] Potassium Chloride ER [K-Dur 10] 10 meq PO DAILY 11/30/22 [History] Sennosides/Docusate Sodium [Senna Plus 8.6-50 mg Softgel] 1 tab PO BID PRN 11/30/22 [History] Ciprofloxacin HCl [Cipro] 500 mg PO BID #14 tab 12/04/22 [Rx] Tamsulosin [Flomax] 0.4 mg PO PC-BRKFST #30 cap 12/04/22 [Rx] Acetaminophen Tab [Tylenol] 650 mg PO Q6HR PRN tab 12/10/22 [Rx] Furosemide [Lasix] 20 mg PO Q48H tab 12/10/22 [Rx] Follow up Appointment(s)/Referral(s): Linda Thomas MD [Primary Care Provider] - 12/12/22 8:30 am [facility] [NON-STAFF] - 1 Week Amanda Thurman DO [STAFF PHYSICIAN] - 01/09/23 9:00 am Evan Arciniega MD [STAFF PHYSICIAN] - 12/14/22 10:00 am Activity/Diet/Wound Care/Special Instructions: Activity Limited until follow-up Follow-up with primary care provider on discharge Follow-up cardiology outpatient Follow-up urology outpatient Follow vascular surgery outpatient Discharge Disposition: HOME WITH HOME HEALTH SERVICES
== END 2022-12-10 16:03 | disposition home health service (06) | DRG 690 ==
LOC: EC 16:06 → 5NMEDONC 23:13 → OBSVTOIN 12-10 13:41 → UNDODISOB 12-10 16:03
PROVIDERS: ADMIT Internal Medicine; ATTEND Internal Medicine
DX: N39.0 Urinary tract infection, site not specified (principal); E78.5 Hyperlipidemia, unspecified; F41.9 Anxiety disorder, unspecified; G20.A1 Parkinson's disease without dyskinesia, without mention of fluctuations; G25.0 Essential tremor; I10 Essential (primary) hypertension; I35.1 Nonrheumatic aortic (valve) insufficiency; I65.23 Occlusion and stenosis of bilateral carotid arteries; N20.0 Calculus of kidney; N28.1 Cyst of kidney, acquired; N28.89 Other specified disorders of kidney and ureter; N40.0 Benign prostatic hyperplasia without lower urinary tract symptoms; Z79.82 Long term (current) use of aspirin; Z79.899 Other long term (current) drug therapy; Z87.442 Personal history of urinary calculi; Z87.891 Personal history of nicotine dependence
CPT/HCPCS: 36415; 70450; 71046; 71275; 72170; 76770; 80048; 80053; 81003; 83605; 83735; 84484; 85025; 85379; 85610; 85730; 87636; 93005; 93880; 93970; 94760; 96361; 96374; 99285

== ENCOUNTER 2024-09-16 14:43 | Emergency (ER) | payer MEDICARE ==
--- NOTE | 2024-09-16 15:18 | ED ---
Fall HPI - General Chief Complaint: Fall Stated Complaint: Fall Time Seen by Provider: 09/16/24 14:45 Source: patient, EMS, RN notes reviewed Mode of arrival: EMS Limitations: no limitations - History of Present Illness Initial Comments: This is an 79-year-old male who presents to the emergency department for a fall. Patient was transferring from his wheelchair to the armchair when he lost his balance and fell. Believes that he landed on his bottom and does not recall hitting his head, however EMS did put him in a c-collar. Not taking any blood thinners and there was no LOC. Currently complains of pain to his lower back. Denies any other complaints. MD Complaint: fall - Related Data Home Medications Medication Instructions Recorded Confirmed Atorvastatin [Lipitor] 20 mg PO DAILY 09/12/15 12/07/22 Finasteride [Proscar] 5 mg PO DAILY 09/12/15 12/07/22 Aspirin [Adult Low Dose Aspirin EC] 81 mg PO DAILY 09/20/15 12/07/22 Losartan [Cozaar] 25 mg PO DAILY 10/24/17 12/07/22 B Complex-Vit C-Vit E-Zinc [Z-Bec] 1 tab PO DAILY 03/22/22 12/07/22 Cholecalciferol (Vitamin D3) 125 mcg PO DAILY 03/22/22 12/07/22 [Vitamin D3 (125 MCG = 5,000 IU)] DULoxetine HCL 20 mg PO DAILY 03/22/22 12/07/22 LORazepam 0.5 mg PO HS PRN 03/22/22 12/07/22 Propranolol [Inderal] 20 mg PO BID 03/22/22 12/07/22 methocarbamoL 500 mg PO BID 03/22/22 12/07/22 Carbidopa-Levodopa 25-100 mg 2 tab PO Q6H 11/30/22 12/07/22 [Sinemet 25-100 mg] Gabapentin [Neurontin] 300 mg PO DAILY PRN 11/30/22 12/07/22 Potassium Chloride ER [K-Dur 10] 10 meq PO DAILY 11/30/22 12/07/22 Sennosides/Docusate Sodium [Senna 1 tab PO BID PRN 11/30/22 12/07/22 Plus 8.6-50 mg Softgel] Previous Rx's Medication Instructions Recorded Ciprofloxacin HCl [Cipro] 500 mg PO BID #14 tab 12/04/22 Tamsulosin [Flomax] 0.4 mg PO PC-BRKFST #30 cap 12/04/22 Acetaminophen Tab [Tylenol] 650 mg PO Q6HR PRN tab 12/10/22 Furosemide [Lasix] 20 mg PO Q48H tab 12/10/22 Allergies Allergy/AdvReac Type Severity Reaction Status Date / Time No Known Allergies Allergy Verified 09/16/24 14:52 Review of Systems ROS Statement: Those systems with pertinent positive or pertinent negative responses have been documented in the HPI. ROS Other: All systems not noted in ROS Statement are negative. Past Medical History Past Medical History: Hyperlipidemia, Hypertension, Neurologic Disorder, Prostate Disorder Additional Past Medical History / Comment(s): pain lower back and martin legs, intermittent lower leg swelling, elevated PSA, parkinsons disease, occasional tremors History of Any Multi-Drug Resistant Organisms: None Reported Past Surgical History: Back Surgery, Heart Catheterization, Hernia Repair Additional Past Surgical History / Comment(s): back surgeries x5, for spinal stenosis and excess scar tissue, martin cataract removed Past Anesthesia/Blood Transfusion Reactions: Motion Sickness, Postoperative Nausea & Vomiting (PONV) Past Psychological History: Anxiety Smoking Status: Former smoker Past Alcohol Use History: None Reported Past Drug Use History: None Reported - Past Family History Brother(s) Family Medical History: Cancer Additional Family Medical History / Comment(s): breast General Exam Limitations: no limitations General appearance: alert, in no apparent distress Head exam: Present: atraumatic, normocephalic, normal inspection Respiratory exam: Present: normal lung sounds bilaterally. Absent: respiratory distress, wheezes, rales, rhonchi, stridor Cardiovascular Exam: Present: regular rate, normal rhythm Neurological exam: Present: alert, oriented X3, CN II-XII intact Psychiatric exam: Present: normal affect, normal mood Skin exam: Present: warm, dry, intact, normal color. Absent: rash Course Vital Signs 09/16/24 09/16/24 14:47 16:15 Temperature 98.1 F 97.6 F Pulse Rate 62 55 L Respiratory 16 17 Rate Blood Pressure 91/36 108/71 O2 Sat by Pulse 96 98 Oximetry Medical Decision Making - Medical Decision Making This is an 79 year old male who presents to the emergency department for back pain after a fall. Was pt. sent in by a medical professional or institution? @ -No Did you speak to anyone other than the patient for history? @ -No Did you review nursing and triage notes? @ -Yes, and I agree, it is accurate with regards to the patient's symptoms. Were old charts reviewed? @ -No Differential Diagnosis? @ -Differential Back Pain: Strain, zoster, cauda equina syndrome, epidural abscess, vertebral osteomyelitis, discitis, fracture, subluxation, disc herniation, DJD, spinal stenosis, dissection, AAA, pancreatitis, peptic ulcer disease, pyelonephritis, kidney stone, this is not meant to be an all-inclusive list. EKG interpreted by me (3pts min.)? @ -Not obtained X-rays interpreted by me (1pt min.)? @ -Not obtained CT interpreted by me (1pt min.)? @ -Computed tomography scan of the brain and c-spine obtained. My interpr etation identifies no evidence of an acute intracranial hemorrhage, skull fracture, or cervical spine fracture. CT scan of the lumbar spine obtained. My interpretation identifies no acute fractures. U/S interpreted by me (1pt. min.)? @ -Not obtained What testing was considered but not performed? (CT, X-rays, U/S, labs)? Why? @ -None What meds were considered but not given? Why? @ -None Did you discuss the management of the patient with other professionals? @ -No Did you reconcile home meds? @ -No Was smoking cessation discussed for >3mins.? @ -No Was critical care preformed (if so, how long)? @ -No Were there social determinants of health that impacted care today? How? (Homelessness, low income, unemployed, alcoholism, drug addiction, transportation, low edu. Level, literacy, decrease access to med. care, snf, rehab)? @ -No Was there de-escalation of care discussed even if they declined? (Discuss DNR or withdrawal of care, Hospice)? @ -No What co-morbidities impacted this encounter? (DM, HTN, Smoking, COPD, CAD, Cancer, CVA, Hep., AIDS, mental health diagnosis, sleep apnea, morbid obesity)? @ -Neurologic disorder, chronic back problems Was patient admitted / discharged? @ -Discharged. CT scan of the brain and C-spine obtained revealing chronic changes without acute intracranial process. CT scan of the lumbar spine obtained also revealing degenerative changes without any acute findings. Tylenol administered for pain relief. Patient discharged home in stable condition. Case discussed with ED attending Dr. Murphy. Return precautions reviewed in depth, the patient is instructed to return to the emergency department with any new, worsening, or concerning symptoms. Patient verbalized understanding. Undiagnosed new problem with uncertain prognosis? @ -None Drug Therapy requiring intensive monitoring for toxicity (Heparin, Nitro, Insulin, Cardizem)? @ -None Were any procedures done? @ -None Diagnosis/symptom? @ -Fall, low back pain Acute, or Chronic, or Acute on Chronic? @ -Acute Uncomplicated (without systemic symptoms) or Complicated (systemic symptoms)? @ -Uncomplicated Side effects of treatment? @ -None Exacerbation, Progression, or Severe Exacerbation] @ -Not applicable Poses a threat to life or bodily function? @ -No - Radiology Data Radiology results: report reviewed, image reviewed Disposition Clinical Impression: Fall, Back pain Disposition: HOME SELF-CARE Instructions (If sedation given, give patient instructions): Fall Prevention for Older Adults (ED) Additional Instructions: Return to the emergency department with any new, worsening, or concerning symptoms. Follow up with your primary care provider in 1-2 days. Is patient prescribed a controlled substance at d/c from ED?: No Referrals: Linda Thomas MD [Primary Care Provider] - 1-2 days Time of Disposition: 16:06
[2024-09-16] MEDS: ACETAMINOPHEN TAB 500 MG TAB PO STA (15:24)
[2024-09-16] MEDS: SODIUM CHLORIDE 0.9% 1,000 ML IV ONE (15:24)
--- NOTE | 2024-09-16 15:56 | CT ---
EXAMINATION TYPE: CT brain marich[facility] DATE OF EXAM: 09/16/2024 COMPARISON: CT brain dated 12/07/2022 CLINICAL INDICATION: Male, 79 years old with history of Fall; PHH, Fall. TECHNIQUE: CT scan of the head and cervical spine are performed without contrast. CT DLP: 1463.[address] CTDI: mGy Automated exposure control for dose reduction was used. Findings: Head CT: Ventricles, basal cisterns and sulci over convexities are moderately enlarged consistent with moderat e age-appropriate atrophy. There is no mass effect or shift of midline structures. There is a small remote lacunar infarct in the left caudate nucleus. There is mild to moderate diffus e decreased density in the periventricular white matter consistent with mild to moderate chronic isch emic white matter demyelination. There is no acute intra or extra-axial hemorrhage. Posterior fossa including the brainstem, fourth ventricle and cerebellar pontine angles are grossly n ormal. The intraorbital contents appear normal and symmetric. Visualized paranasal sinuses are well aerated. CT cervical spine: Craniovertebral junction relationships and prevertebral soft tissues are normal. The cervical vertebral segments are normal in height and alignment and there is no fracture subluxati on. There is moderate disc space narrowing and hypertrophic spurring at the C5-6 and C6-7 levels. The bony cervical canal is widely patent. There is mild bony neural foraminal encroachment at C4-5 on the right and moderate bony neural foraminal encroachment at C5-6 on the left. The paraspinal soft tissues unremarkable. IMPRESSION: 1. Head CT: No acute bleed or mass effect. Mild to moderate senescent changes as described above. Rem ote lacunar infarct in the left caudate nucleus. 2. CT cervical spine: No acute trauma. Moderate degenerative disc disease lower cervical spine as eryn cribed above. [facility], , 09/16/2024 3:54 PM
--- NOTE | 2024-09-16 15:59 | CT ---
EXAMINATION TYPE: CT lumbar spine wo con DATE OF EXAM: 09/16/2024 3:46 PM COMPARISON: None CLINICAL INDICATION: Male, 79 years old with history of Fall; PHH, Fall. TECHNIQUE: Unenhanced CT of the lumbar spine was performed. Bone and soft tissue window settings are submitted as well as coronal and sagittal reconstructions. CT DLP: 3027.[address] CTDI: mGy Automated exposure control for dose reduction was used. FINDINGS: There is laminectomy on the left at the L4-5 and L5-S1 level. There is posterior metallic and interbo dy fusion of L3-L5. There is no lumbar spine fracture or malalignment. There is marked degenerative disc disease at the L5-3 and L5-S1 levels where there is marked disc spa ce narrowing and mild spondylosis. There is mild degenerative disease at the L2-3 level where there i s mild vacuum phenomena and mild disc space narrowing and spondylosis. Visualized sacrum and SI joints are normal. IMPRESSION: 1. No lumbar spine fracture or malalignment. 2. Lumbar fusion from L3 through L5. Left-sided laminectomy at L4-5 and L5-S1 levels. 3. Severe degenerative disease at the L2-3 and L5-S1 levels. [facility], , 09/16/2024 3:56 PM
[2024-09-16 16:16] VITALS: BP 108/71; PULSE 55; RESP 17; TEMP 97.6
== END 2024-09-16 16:53 | disposition home or self-care (01) ==
LOC: EC 14:43
DX: M54.50 Low back pain, unspecified (principal); Z87.891 Personal history of nicotine dependence; W19.XXXA Unspecified fall, initial encounter; W01.0XXA Fall on same level from slipping, tripping and stumbling without subsequent striking against object, initial encounter
CPT/HCPCS: 70450; 72125; 72131; 96360; 99284